=== PATIENT | male | born 1935 | race Caucasian/White ===

== ENCOUNTER 2017-07-13 10:53 | Inpatient (IN) ==
--- OUTSIDE RECORDS SUMMARY | 2017-07-13 11:39 | External Medical Summary | Referral Summary ---
:1935 Author Organization [facility] Address [address] [place] [address] Care Team Providers Name Role Phone Jose Carroll Primary Care Physician Unavailable Encounter [facility] [id number] Date(s): 07/06/15 - 07/06/15 [facility] [address] [place] [address] [place] [address] [place] Discharge Diagnosis: Urinary symptom or sign Discharge Diagnosis: Prostate hypertrophy Discharge Disposition: 01-Home or Self Care Attending Physician: Wero Meadows Admitting Physician: Wero Meadows Vital Signs Most recent to oldest [Reference Range]: 1 Temperature Oral [35.8-37.3 degC] 36.1 degC (07/06/15 10:02 AM) Peripheral Pulse Rate [60-100 bpm] 76 bpm (07/06/15 10:02 AM) Respiratory Rate [14-20 br/min] 12 br/min *LOW* (07/06/15 10:02 AM) Blood Pressure [90-140/60-90 mmHg] 160/80 mmHg *HI* (07/06/15 10:02 AM) Problem List Condition Effective Dates Status Health Status Informant Actinic keratosis Active (disorder)(Confirmed) Arrhythmia(Confirmed) Active Senile ecchymosis(Confirmed) Active Dizzy(Confirmed) Active History of Parkinson's Active disease(Confirmed) Hx of coronary artery Active disease(Confirmed) History of BPH(Confirmed) Active 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) Hyperlipidemia(Confirmed) Active Hypertension(Confirmed) Active Bad memory(Confirmed) Active Obstructive sleep apnea(Confirmed) Active Sleep disorder(Confirmed) Active Solar degeneration(Confirmed) Active Spontaneous ecchymosis Active (finding)(Confirmed) Brain TIA(Confirmed) Active Vertebral artery stenosis(Confirmed) Active Allergies, Adverse Reactions, Alerts No Known Allergies Medications atenolol 25 mg oral tablet See Instructions, TAKE ONE TABLET BY MOUTH ONCE DAILY, # 90 tabs, eRx: [id number], TAKE ONE TABLET BY MOUTH ONCE DAILY Start Date: 06/15/15 Status: OrderedAzilect Oral, Daily, 0 Refill(s) Start Date: 03/16/14 Status: OrderedFlomax 0.4 mg oral capsule 0.4 mg 1 caps, Oral, Daily, # 30 caps, 6 Refill(s), Pharmacy: [id number], 1 caps Oral Daily Start Date: 07/06/15 Status: OrderedPradaxa 150 mg oral capsule 150 mg 1 caps, Oral, BID, # 180 caps, 1 Refill(s), Pharmacy: [facility] Start Date: 12/21/14 Status: OrderedSinemet 25 mg-100 mg oral tablet 2 tabs, Oral, TID, # 180 Each, 11 Refill(s) Start Date: 11/26/13 Status: Ordered Results Urinalysis Most recent to oldest [Reference Range]: 1 UA Color Yellow (07/06/15 10:20 AM) UA Appear Clear (07/06/15 10:20 AM) UA pH [5.0-8.0] 5.0 (07/06/15 10:20 AM) UA Leuk Est [Negative] Negative (07/06/15 10:20 AM) UA Nitrite [Negative] Negative (07/06/15 10:20 AM) UA Protein [Negative] Negative (07/06/15 10:20 AM) UA Glucose [Negative] Negative (07/06/15 10:20 AM) UA Ketones [Negative] Negative (07/06/15 10:20 AM) UA Urobilinogen [<=1.0 mg/dL] 0.2 mg/dL (07/06/15 10:20 AM) UA Bili [Negative] Negative (07/06/15 10:20 AM) UA Blood [Negative] Negative (07/06/15 10:20 AM) UA Spec Grav [1.003-1.030] 1.025 (07/06/15 10:20 AM) Type Cl Catch (07/06/15 10:20 AM) Immunizations Vaccine Date Refusal Reason influenza virus vaccine, live 9/26/13 Procedures Procedure Date Related Diagnosis Body Site Colonoscopy Hernia repair(L) Inguinal Social History Social History Type Response Smoking Status Never smoker Assessment and Plan Extracted from: Title: Office Visit Note Author: Wero Meadows Date: 07/06/15 Assessment/Plan 1.Prostate hypertrophy Flomax at HS and f/u with Dr. Carroll in 1 month to see how he is doing? If any questions, concerns, problems or no improvement is noted please call or follow-up. Ordered: Office Visit Level 3 Est 34911 2.Urinary symptom or sign Ordered: Office Visit Level 3 Est 32794 Urine frequency Ordered: Office Visit Level 3 Est 17035 Orders: tamsulosin, 0.4 mg 1 caps, Oral, Daily, # 30 caps, 6 Refill(s), Pharmacy: [id number], 1 caps Oral Daily
--- OUTSIDE RECORDS SUMMARY | 2017-07-13 11:39 | External Medical Summary | Referral Summary ---
:1935 Author Organization [facility]des [facility] Address [address] [place] [address] Care Team Providers Name Role Phone Jose Carroll Primary Care Physician Unavailable Encounter [facility] [id number] Date(s): 08/18/15 - 08/18/15 [facility] [address] [place] [address]- [place] Discharge Disposition: 01-Home or Self Care Attending Physician: Jose Carroll DO Vital Signs No data available for this section Problem List Condition Effective Dates Status Health [...] MOUTH ONCE DAILY, # 90 tabs, eRx: [facility], TAKE ONE TABLET BY MOUTH ONCE DAILY Start Date: 06/15/15 Status: OrderedAzilect Oral, Daily, 0 Refill(s) Start Date: 03/16/14 Status: OrderedFlomax 0.4 mg oral capsule 0.4 mg 1 caps, Oral, Daily, # 30 caps, 6 Refill(s), Pharmacy: [facility], 1 caps Oral Daily Start Date: 08/08/15 Status: OrderedPradaxa 150 mg oral capsule 150 mg 1 caps, Oral, BID, # 180 caps, 1 Refill(s), Pharmacy: [facility] Start Date: 12/21/14 Status: OrderedSinemet 25 mg-100 mg oral tablet 2 tabs, Oral, TID, # 180 Each, 11 Refill(s) Start Date: 11/26/13 Status: Ordered Results No data available for this section Immunizations Vaccine Date Refusal Reason influenza virus vaccine, live 03/19/13 Procedures Procedure Date Related Diagnosis Body Site Colonoscopy Hernia repair(L) Inguinal Social History Social History Type Response Smoking Status Never smoker Assessment and Plan No data available for this section
--- OUTSIDE RECORDS SUMMARY | 2017-07-13 11:40 | External Medical Summary | Referral Summary ---
:1935 Author Organization [facility] , [facility] Address [address] [place] [address] Care Team Providers Name Role Phone Jose Carroll Primary Care Physician Encounter [facility] [id number] Date(s): 06/29/16 - 06/29/16 [facility] [address] [place] [address] [place] Discharge Diagnosis: Actinic keratoses Discharge Diagnosis: Seborrheic keratoses Discharge Disposition: 01-Home or Self Care Attending Physician: Arron Olivo MD Admitting Physician: Arron Olivo MD Referring Physician: Jose Carroll DO Vital Signs No data available for this section Problem List Condition Effective Dates Status Health Status Informant Acquired hallux valgus of right Active foot(Confirmed) Acquired hammer toe of right Active foot(Confirmed) Actinic keratosis Active (disorder)(Confirmed) Arrhythmia(Confirmed) Active Senile ecchymosis(Confirmed) Active Dizzy(Confirmed) Active History of Parkinson's Active disease(Confirmed) Hx of coronary artery Active disease(Confirmed) History of BPH(Confirmed) Active 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) Hyperlipidemia(Confirmed) Active Hypertension(Confirmed) Active Bad memory(Confirmed) Active Obstructive sleep apnea(Confirmed) Active Sleep disorder(Confirmed) Active 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 Spontaneous ecchymosis Active (finding)(Confirmed) Brain TIA(Confirmed) Active Vertebral artery stenosis(Confirmed) Active Allergies, Adverse Reactions, Alerts No Known Allergies Medications atenolol 25 mg oral tablet See Instructions, TAKE ONE TABLET BY MOUTH ONCE DAILY (PATIENT NEEDS APPOINTMENT PLEASE CALL TO SCHEDULE), # 90 tabs, 2 Refill(s), eRx: [facility] Start Date: 06/14/16 Status: OrderedAzilect Oral, Daily, 0 Refill(s) Start Date: 03/16/14 Status: Orderedcarbidopa-levodopa 4.63 mg-20 mg/mL enteral suspension 0 Refill(s) Start Date: 06/28/16 Status: Orderedclopidogrel Oral, 0 Refill(s) Start Date: 06/28/16 Status: OrderedEliquis 5 mg oral tablet See Instructions, TAKE ONE TABLET BY MOUTH TWICE DAILY, # 60 tabs, 0 Refill(s), [place], Pharmacy: [facility], Patient is due for physical, TAKE ONE TABLET BY MOUTH TWICE DAILY Start Date: 06/01/16 Status: Ordered Results No data available for this section Immunizations Given and Recorded Vaccine Date Status Refusal Reason influenza virus vaccine, live 03/13/16 Recorded influenza virus vaccine, live 03/19/13 Given pneumococcal 13-valent conjugate vaccine 06/07/16 Given Procedures Procedure Date Related Diagnosis Body Site Destruction (eg, laser surgery, electrosurgery, 06/29/16 cryosurgery, chemosurgery, surgical curettement), premalignant lesions (eg, actinic keratoses); first lesion Destruction (eg, laser surgery, electrosurgery, 06/29/16 cryosurgery, chemosurgery, surgical curettement), premalignant lesions (eg, actinic keratoses); second through 14 lesions, each (List separately in addition to code for first lesion) Colonoscopy Hernia repair(L) Inguinal Social History Social History Type Response Smoking Status Never smoker Assessment and Plan Extracted from: Title: Office Visit Note Author: Arron Olivo MD Date: 06/29/16 Assessment/Plan 1.Actinic keratoses -3 lesions; see physical examination above for locations -Cryotherapy x2 cycle(s) (10 second freeze-thaw cycle) -Encouraged monthly skin self-examination and warning signs of non-melanoma skin cancer discussed -Discussed proper sun protective behavior including: avoiding the hours of peak sun exposure (10am-2pm), wearing sunscreen SPF 30 or higher and reapplying every 2 hours for prolonged sun exposure, an d wearing sun protective clothing including a wide brimmed hat -Return to clinic in6 months -Encouraged pt to schedule an earlier f/u appointment if concerning lesions develop or if treated lesions do not resolve in 6 weeks Ordered: Destruction premalignant lesion 1st 08072 Destruction premalignant lesion 2-14, Each 70806 Office Visit Level 3 Est 88309 2.Seborrheic keratoses -Reassurance regarding the benign nature of these lesions -Discussed ABCDEs of melanoma and recommended monthly skin self-examination -Recommended pt schedule a clinic appointment for anyconcerning lesions Ordered: Office Visit Level 3 Est 92243
--- OUTSIDE RECORDS SUMMARY | 2017-07-13 11:40 | External Medical Summary | Referral Summary ---
:1935 Author Organization [facility] , [facility] Address [address] [place] [address] Care Team Providers Name Role Phone Jose Carroll Primary Care Physician Encounter [facility] [id number] Date(s): 01/31/16 - 01/31/16 [facility] , [facility] [address] [place] [address] [place] Discharge Diagnosis: Actinic keratoses [...] PLEASE CALL TO SCHEDULE), # 90 tabs, [facility]Rx: [facility], TAKE ONE TABLET BY MOUTH ONCE DAILY (PATIENT NEEDS APPOINTMENT PLEASE CALL TO SCHEDULE) Start Date: 12/13/15 Status: OrderedAzilect Oral, Daily, 0 Refill(s) Start Date: 03/16/14 Status: OrderedEliquis 5 mg oral tablet See Instructions, TAKE ONE TABLET BY MOUTH TWICE DAILY, # 60 tabs, 1 Refill(s), eRx: [facility], TAKE ONE TABLET BY MOUTH TWICE DAILY Start Date: 12/09/15 Status: OrderedFlomax 0.4 mg oral capsule 0.4 mg 1 caps, Oral, Daily, # 30 caps, 6 Refill(s), Pharmacy: [facility], 1 caps Oral Daily Start Date: 08/08/15 Status: OrderedPlavix 75 mg oral tablet 75 mg 1 tabs, Oral, Daily, # 30 tabs, 0 Refill(s) Start Date: 08/23/15 Status: OrderedSinemet 25 mg-100 mg oral tablet 2 tabs, Oral, TID, # 180 Each, 11 Refill(s) Start Date: 11/26/13 Status: Ordered Results No data available for this section Immunizations Vaccine Date Refusal Reason influenza virus vaccine, live 03/19/13 Procedures Procedure Date Related Diagnosis Body Site Destruction (eg, laser surgery, electrosurgery, 01/31/16 cryosurgery, chemosurgery, surgical curettement), premalignant lesions (eg, actinic keratoses); first lesion Destruction (eg, laser surgery, electrosurgery, 01/31/16 cryosurgery, chemosurgery, surgical curettement), premalignant lesions (eg, actinic keratoses); second through 14 lesions, each (List separately in addition to code for first lesion) Colonoscopy Hernia repair(L) Inguinal Social History Social History Type Response Smoking Status Never smoker Assessment and Plan Extracted from: Title: Office Visit Note Author: Arron Olivo MD Date: 01/31/16 Assessment/Plan 1.Actinic keratoses -8 lesions; see physical examination above for locations -Cryotherapy x2 cycle(s) (10 second freeze-thaw cycle) -Encouraged monthly skin self-examination and warning signs of non-melanoma skin cancer discussed -Discussed proper sun protective behavior including: avoiding the hours of peak sun exposure (10am-2pm), wearing sunscreen SPF 30 or higher and reapplying every 2 hours for prolonged sun exposure, and wearing sun protective clothing including a wide brimmed hat -Return to clinic [id number] -Encouraged pt to schedule an earlier f/u appointment if concerning lesions develop or if treated lesions do not resolve in 6 weeks Ordered: Destruction premalignant lesion 1st 45340 Destruction premalignant lesion 2-14, Each 61609 Office Visit Level 3 Est 95209 2.Seborrheic keratoses -Reassurance regarding the benign nature of these lesions -Discussed ABCDEs of melanoma and recommended monthly skin self-examination -Recommended pt schedule a clinic appointment for anyconcerning lesions Ordered: Office Visit Level 3 Est 53116
--- OUTSIDE RECORDS SUMMARY | 2017-07-13 11:40 | External Medical Summary | Referral Summary ---
:1935 Author Organization [facility] , [facility] Address [address] [place] [address] Care Team Providers Name Role Phone Jose Carroll Primary Care Physician Unavailable Encounter [facility] [id number] Date(s): 01/31/15 - 01/31/15 [facility] , [facility] [address] [place] [address]- [place] Discharge Diagnosis: Actinic keratosis Discharge Diagnosis: Senile purpura Discharge Disposition: 01-Home or Self Care Attending [...] MOUTH ONCE DAILY, # 90 tabs, [facility], TAKE ONE TABLET BY MOUTH ONCE DAILY Start Date: 06/15/15 Status: OrderedAzilect Oral, Daily, 0 Refill(s) Start Date: 03/16/14 Status: OrderedFlomax 0.4 mg oral capsule 0.4 mg 1 caps, Oral, Daily, # 30 caps, 6 Refill(s), Pharmacy: [facility], 1 caps Oral Daily Start Date: 08/08/15 Status: OrderedPradaxa 150 mg oral capsule 150 mg 1 caps, Oral, BID, # 180 caps, 1 Refill(s), Pharmacy: [facility] Start Date: 12/21/14 Status: OrderedSinemet 25 mg-100 mg oral tablet 2 tabs, Oral, TID, # 180 Each, 11 Refill(s) Start Date: 11/26/13 Status: Ordered Results No data available for this section Immunizations Vaccine Date Refusal Reason influenza virus vaccine, live 03/19/13 Procedures Procedure Date Related Diagnosis Body Site Destruction (eg, laser surgery, electrosurgery, 01/31/15 cryosurgery, chemosurgery, surgical curettement), premalignant lesions (eg, actinic keratoses); first lesion Destruction (eg, laser surgery, electrosurgery, 01/31/15 cryosurgery, chemosurgery, surgical curettement), premalignant lesions (eg, actinic keratoses); second through 14 lesions, each (List separately in addition to code for first lesion).. Colonoscopy Hernia repair(L) Inguinal Social History Social History Type Response Smoking Status Never smoker Assessment and Plan Extracted from: Title: Ambulatory Patient Education Author: Arron Olivo MD Date: Family Medicine Actinic Keratosis Actinic keratosis is a precancerous growth on the skin. This means it could develop into skin cancer if it is not treated. About 1% of actinic keratoses turn into skin cancer within a year. It is import ant to have all such growths removed to prevent them from developing into skin cancer. CAUSES Actinic keratosis is caused by getting too much ultraviolet (UV) radiation from the sun or other UV light sources. RISK FACTORS Factors that increase your chances of getting actinic keratosis include: Having light-colored skin and blue eyes. Having blonde or red hair. Spending a lot of time in the sun. Age. The risk of actinic keratosis increases with age. SYMPTOMS Actinic keratosis growths look like scaly, rough spots of skin. They can be as small as a pinhead or as big as a quarter. They may itch, hurt, or feel sensitive. Sometimes there is a little tag of pink or rae skin growing off them. In some cases, actinic keratoses are easier felt than seen. They do not go away with the use of moisturizing lotions or creams. Actinic keratoses appear most often on area s of skin that get a lot of sun exposure. These areas include the: Scalp. Face. Ears. Lips. Upper back. Backs of the hands. Forearms. DIAGNOSIS Your caregiver can usually tell what is wrong by performing a physical exam. A tissue sample (biopsy) may also be taken and examined under a microscope. TREATMENT Actinic keratosis can be treated several ways. Most treatments can be done in your caregiver's office. Treatment options may include: Curettage. A tool is used to gently scrape off the growth. Cryosurgery. Liquid nitrogen is applied to the growth to freeze it. The growth eventually falls off the skin. Medicated creams, such as 5-fluorouracil or imiquimod. The medicine destroys the cells in the growth. Chemical peels. Chemicals are applied to the growth and the outer layers of skin are peeled off. Photodynamic therapy. A drug that makes your skin more sensitive to light is applied to the skin. A strong, blue light is aimed at the skin and destroys the growth. PREVENTION To prevent future sun damage: Try to avoid the sun between 10:00 a.m. and 4:00 p.m. when it is the strongest. Use a sunscreen or sunblock with SPF 30 or greater. Apply sunscreen at least 30 minutes before exposure to the sun. Always wear protective hats, clothing, and sunglasses with UV protection. Avoid medicines, herbs, and foods that increase your sensitivity to sunlight. Avoid tanning beds. HOME CARE INSTRUCTIONS If your skin was covered with a bandage, change and remove the bandage as directed by your caregiver. Keep the treated area dry as directed by your caregiver. Apply any creams as prescribed by your caregiver. Follow the directions carefully. Check your skin regularly for any changes. Visit a skin doctor (manager application) every year for a skin exam. SEEK MEDICAL CARE IF: Your skin does not heal and becomes irritated, red, or bleeds. You notice any changes or new growths on your skin. Document Released: 09/06/2009 Document Revised: 09/01/2012 Document Reviewed: 07/21/2012 ExitCare Patient Information 2014 [employer]. This information is not intended to replace advice given to you by your health care provider. Make sure you discuss any questions you have with your health care provider. No follow up information was provided. Extracted from: Title: Office Visit Note Author: Arron Olivo MD Date: 01/31/15 Assessment/Plan 1.Actinic keratosis -6 lesions; see physical examination above for locations [...] a wide brimmed hat -Return to clinic in12 months -Encouraged pt to schedule an earlier f/u appointment if concerning lesions develop or if treated lesions do not resolve in 6 weeks Ordered: Destruction premalignant lesion 1st 12862 Destruction premalignant lesion 2-14, Each 85666 Office Visit Level 3 Est 79951 2.Senile purpura -Reassured the pt regarding the benign nature of these lesions -Discussed the multifactorial causes including: aging, photodamage and Pradaxa -No treatment options currently available Ordered: Office Visit Level 3 Est 13868
--- OUTSIDE RECORDS SUMMARY | 2017-07-13 11:40 | External Medical Summary | Referral Summary ---
:1935 Author Organization [facility] Address [address] [place] [address] Care Team Providers Name Role Phone Jose Carroll Primary Care Physician Unavailable Encounter [facility] [id number] Date(s): 08/08/15 - 08/08/15 [facility] [address] [place] [address]- [place] Discharge Diagnosis: Shortness of breath Discharge Diagnosis: Nocturia Discharge Disposition: 01-Home or Self Care Attending Physician: Jose Carroll DO Admitting Physician: Jose Carroll DO Vital Signs Most recent to oldest [Reference Range]: 1 Temperature Oral [35.8-37.3 degC] 36.6 degC (08/08/15 8:16 AM) Peripheral Pulse Rate [60-100 bpm] 70 bpm (08/08/15 8:16 AM) Blood Pressure [90-140/60-90 mmHg] 140/78 mmHg (08/08/15 8:16 AM) SpO2 94 % (08/08/15 8:16 AM) Problem List Condition Effective Dates Status [...] MOUTH ONCE DAILY, # 90 tabs, eRx: [facility], TAKE ONE TABLET BY MOUTH ONCE DAILY Start Date: 06/15/15 Status: OrderedAzilect Oral, Daily, 0 Refill(s) Start Date: 03/16/14 Status: OrderedFlomax 0.4 mg oral capsule 0.4 mg 1 caps, Oral, Daily, # 30 caps, 6 Refill(s), Pharmacy: [facility], 1 caps Oral Daily Start Date: 08/08/15 Status: OrderedPradaxa 150 mg oral capsule 150 mg 1 caps, Oral, BID, # 180 caps, 1 Refill(s), Pharmacy: [facility] 1200 Start Date: 12/21/14 Status: [...] Extracted from: Title: Office Visit Note Author: Jose Carroll DO Date: 08/08/15 Assessment/Plan 1.Nocturia Reviewed and no blood work has been done kavon'll obtain lab workto rule out otherpathological entity Ordered: CBC w/ Differential Comprehensive Metabolic Panel Prostate Specific Antigen XR Chest 2 Views 2.Shortness of breath Discussed with patientvery suggestive of heart palpitations or fluttering Due to PMHstress test Ordered: CBC w/ Differential Comprehensive Metabolic Panel Prostate Specific Antigen XR Chest 2 Views Orders: tamsulosin, 0.4 mg 1 caps, Oral, Daily, # 30 caps, 6 Refill(s), Pharmacy: [facility], 1 caps Oral Daily
--- OUTSIDE RECORDS SUMMARY | 2017-07-13 11:40 | External Medical Summary | Referral Summary ---
:1935 Author Organization [facility] Address [address] [place] [address] Care Team Providers Name Role Phone Jose Carroll Primary Care Physician Encounter VC Date(s): 06/28/16 - 06/28/16 [facility] [address] [address] [place] [address]- [place] Discharge Diagnosis: Heloma molle Discharge Diagnosis: Acquired hallux valgus of right foot Discharge Diagnosis: Acquired hammer toe of right foot Discharge Disposition: 01-Home or Self Care Attending Physician: Nestor Breaux DPM Admitting Physician: Nestor Breaux DPM Vital Signs No data available for this [...] SCHEDULE), # 90 tabs, 2 Refill(s), eRx: [id number] Start Date: 06/14/16 Status: OrderedAzilect Oral, Daily, 0 Refill(s) Start Date: 03/16/14 Status: Orderedcarbidopa-levodopa 4.63 mg-20 mg/mL enteral suspension 0 Refill(s) Start Date: 06/28/16 Status: Orderedclopidogrel Oral, 0 Refill(s) Start Date: 06/28/16 Status: OrderedEliquis 5 mg oral tablet See Instructions, TAKE ONE TABLET BY MOUTH TWICE DAILY, # 60 tabs, 0 Refill(s), [place], Pharmacy: [id number], Patient is due for physical, [...] Extracted from: Title: Ambulatory Patient Education Author: Nestor Breaux DPRonald Date: 06/28/16 Musculoskeletal Bunion (Hallux Valgus) A bony bump (protrusion) on the inside of the foot, at the base of the first toe, is called a bunion (hallux valgus). A bunion causes the first toe to angle toward the other toes. SYMPTOMS A bony bump on the inside of the foot, causing an outward turning of the first toe. It may also overlap the second toe. Thickening of the skin (callus) over the bony bump. Fluid buildup under the callus. Fluid may become red, tender, and swollen (inflamed) with constant irritation or pressure. Foot pain and stiffness. CAUSES Many causes exist, including: Inherited from your family (genetics). Injury (trauma) forcing the first toe into a position in which it overlaps other toes. Bunions are also associated with wearing shoes that have a narrow toe box (pointy shoes). RISK INCREASES WITH: Family history of foot abnormalities, especially bunions. Arthritis. Narrow shoes, especially high heels. PREVENTION Wear shoes with a wide toe box. Avoid shoes with high heels. Wear a small pad between the big toe and second toe. Maintain proper conditioning: Foot and ankle flexibility. Muscle strength and endurance. PROGNOSIS With proper treatment, bunions can typically be cured. Occasionally, surgery is required. RELATED COMPLICATIONS Infection of the bunion. Arthritis of the first toe. Risks of surgery, including infection, bleeding, injury to nerves (numb toe), recurrent bunion, overcorrection (toe points inward), arthritis of the big toe, big toe pointing upward, and bone not healing. TREATMENT Treatment first consists of stopping the activities that aggravate the pain, taking pain medicines, and icing to reduce inflammation and pain. Wear shoes with a wide toe box. Shoes can be modified by a shoe repair person to relieve pressure on the bunion, especially if you cannot find shoes with a wide enough toe box. You may also place a pad with the center cut out in your shoe, to reduce pressure on the bunion. Sometimes, an arch support (orthotic) may reduce pressure on the bunion and alleviate the symptoms. Stretching and strengthening exercises for the muscles of the foot may be useful. You may choose to wear a brace or pad at night to hold the big toe away from the second toe. If non-surgical treatments are not successful, surgery may be needed. Surgery involves removing the overgrown tissue and correcting the position of the first toe, by realigning the bones. Bunion surgery is typically performed on an outpatient basis, meaning you can go home the same day as surgery. The surgery may inv olve cutting the mid portion of the bone of the first toe, or just cutting and repairing (reconstructing) the ligaments and soft tissues around the first toe. MEDICATION If pain medicine is needed, nonsteroidal anti-inflammatory medicines, such as aspirin and ibuprofen, or other minor pain relievers, such as acetaminophen, are often recommended. Do not take pain medicine for 7 days before surgery. Prescription pain relievers are usually only prescribed after surgery. Use only as directed and only as much as you need. Ointments applied to the skin may be helpful. HEAT AND COLD Cold treatment (icing) relieves pain and reduces inflammation. Cold treatment should be applied for 10 to 15 minutes every 2 to 3 hours for inflammation and pain and immediately after any activit y that aggravates your symptoms. Use ice packs or an ice massage. Heat treatment may be used prior to performing the stretching and strengthening activities prescribed by your caregiver, physical therapist, or lion trainer. Use a heat pack or a warm soak. SEEK MEDICAL CARE IF: Symptoms get worse or do not improve in 2 weeks, despite treatment. After surgery, you develop fever, increasing pain, redness, swelling, drainage of fluids, bleeding, or increasing warmth around the surgical area. New, unexplained symptoms develop. (Drugs used in treatment may produce side effects.) This information is not intended to replace advice given to you by your health care provider. Make sure you discuss any questions you have with your health care provider. Document Released: 06/10/2006 Document Revised: 09/01/2012 Document Reviewed: 09/22/2009 [employer] Interactive Patient Education 2016 [employer] Hammer Toes Hammer toes is a condition in which one or more of your toes is permanently flexed. CAUSES This happens when a muscle imbalance or abnormal bone length makes your small toes buckle. This causes the toe joint to contract and the strong cord-like bands that attach muscles to the bones (tendons) in your toes to shorten. SIGNS AND SYMPTOMS Common symptoms of flexible hammer toes include: A buildup of skin cells (corns). Corns occur where baltazar bumps come in frequent contact with hard surfaces. For example, where your shoes press and rub. Irritation. Inflammation. Pain. Limited motion in your toes. DIAGNOSIS Hammer toes are diagnosed through a physical exam of your toes. During the exam , your health care provider may try to reproduce your symptoms by manipulating your foot. Often, X-ray exams are done to de termine the degree of deformity and to make sure that the cause is not a fracture. TREATMENT Hammer toes can be treated with corrective surgery. There are several types of surgical procedures that can treat hammer toes. The most common procedures include: ArthroplastyA portion of the joint is surgically removed and your toe is straightened. The gap fills in with fibrous tissue. This procedure helps treat pain and deformity and helps restore function. FusionCartilage between the two bones of the affected joint is taken out and the bones fuse together into one longer bone. This helps keep your toe stable and reduces pain but leaves your toe stiff, yet straight. ImplantationA portion of your bone is removed and replaced with an implant to restore motion. Flexor tendon transfersThis procedure repositions the tendons that curl the toes down (flexor tendons). This may be done to release the deforming force that causes your toe to buckle. Several of these procedures require fixing your toe with a pin that is visible at the tip of your toe. The pin keeps the toe straight during healing. Your health care provider will remove the pin usually within 48 weeks after the procedure. This information is not intended to replace advice given to you by your health care provider. Make sure you discuss any questions you have with your health care provider. Document Released: 06/07/2001 Document Revised: 06/15/2014 Document Reviewed: 02/15/2014 [employer] Interactive Patient Education 2016 [employer] No follow up information was provided. Extracted from: Title: Office Visit Note Author: Nestor Breaux DPRonald Date: 06/28/16 Assessment/Plan 1.Heloma molle 2.Acquired hallux valgus of right foot 3.Acquired hammer toe of right foot Discussed the etiology of hyperkeratotic lesion ofright great toetoday. Patient was given Silipos padding and different type of toe spacer that he maywear. Advised patient to wear wider shoe gear. Consideration is given to surgical intervention in the form of reconstruction versus amputation of right second digit. Patient states that he does not wish to undergo surgical intervention at this time. Return to clinicas needed basis.
--- OUTSIDE RECORDS SUMMARY | 2017-07-13 11:40 | External Medical Summary | Continuity of Care Document ---
:1935 Author Organization [facility] Allergies Active Description Code Type Severity Reaction Onset Reported/ Identified Relationship Clinical to Patient Status Yes NKDA N/A N/A Yes No Known NKMA N/A N/A 11/26/2013 Medication Allergies Yes No Known NKMA N/A N/A 11/26/2013 Medication Allergies Yes No Known NKMA N/A N/A 01/31/2015 Allergies Yes No Known NKMA N/A N/A 01/31/2015 Allergies Yes No Known No Drug Unknown N/A 07/02/2016 Allergies Known Aller Aller gy gies Medications Medication Packaging Start Stop Route Dosage Sig Date Date 1 caps 11/27/19 Oral 150 mg 1 dabigatran(Arnaldo 4 14 caps, Oral, xa 150 mg oral BID, 60 caps capsule) tabs 11/27/19 Oral mg clopidogrel(Plav 4 14 tabs, Oral, ix 75 mg oral Daily tablet) tabs 11/27/19 Oral mg rasagiline(Azile 4 14 tabs, Oral, ct 1 mg oral Daily tablet) tabs 11/27/19 Oral mg atenolol(atenolo 4 14 tabs, Oral, l 25 mg oral Daily tablet) tabs 11/27/19 Oral carbidopa-levodo 4 14 tabs, Oral, pa(Sinemet 25 TID mg-100 mg oral tablet) 2 tabs 06/07/20 Oral 2 carbidopa-levodo 4 16 tabs, Oral, pa(Sinemet 25 TID, 180 Each mg-100 mg oral tablet) Oral rasagiline(Azile 4 Oral, Daily ct) 08/09/19 Oral atenolol(atenolo 4 15 Oral, Daily l) 12/22/19 Oral dabigatran(Arnaldo 4 15 Oral, BID xa) 1 tabs 07/06/19 Oral 81 mg 1 aspirin(aspirin 4 16 tabs, Oral, 81 mg oral Daily tablet) ORAL [id number] 5 daily 12/22/19 atenolol(atenolo 5 15 See l 25 mg oral Instructions, tablet) TAKE ONE TABLET BY MOUTH EVERY DAY, 90 tabs ORAL [id number] 5 t.i.d. ORAL [id number] 5 t.i.d. 06/15/20 atenolol(atenolo 5 15 See l 25 mg oral Instructions, tablet) TAKE ONE TABLET BY MOUTH ONCE DAILY, 90 tabs 08/29/19 atenolol(atenolo 5 16 See l 25 mg oral Instructions, tablet) TAKE ONE TABLET BY MOUTH ONCE DAILY, 90 tabs 1 caps 08/08/19 Oral 0.4 mg tamsulosin(Floma 6 16 0.4 mg=1 caps, x 0.4 mg oral Oral, Daily, capsule) 30 caps, 6 Refill(s) 1 caps 06/07/20 Oral 0.4 mg tamsulosin(Floma 6 16 0.4 mg=1 caps, x 0.4 mg oral Oral, Daily, capsule) 30 caps, 6 Refill(s) 1 tabs 06/07/20 Oral 75 mg 75 clopidogrel(Plav 6 16 mg=1 tabs, ix 75 mg oral Oral, Daily, tablet) 30 tabs, 0 Refill(s) 12/13/19 atenolol(atenolo 6 16 See l 25 mg oral Instructions, tablet) TAKE ONE TABLET BY MOUTH ONCE DAILY (PATIENT NEEDS APPOINTMENT PLEASE CALL TO SCHEDULE), 90 tabs 03/12/20 atenolol(atenolo 6 16 See l 25 mg oral Instructions, tablet) TAKE ONE TABLET BY MOUTH ONCE DAILY (PATIENT NEEDS APPOINTMENT PLEASE CALL TO SCHEDULE), 90 tabs 04/30/20 apixaban(Eliquis 6 16 See 5 mg oral Instructions, tablet) TAKE ONE TABLET BY MOUTH TWICE DAILY, 60 tabs, 1 Refill(s) 06/14/20 atenolol(atenolo 6 16 See l 25 mg oral Instructions, tablet) TAKE ONE TABLET BY MOUTH ONCE DAILY (PATIENT NEEDS APPOINTMENT PLEASE CALL TO SCHEDULE), 90 tabs 06/01/20 apixaban(Eliquis 6 16 See 5 mg oral Instructions, tablet) TAKE ONE TABLET BY MOUTH TWICE DAILY, 60 tabs 07/17/19 apixaban(Eliquis 6 17 See 5 mg oral Instructions, tablet) TAKE ONE TABLET BY MOUTH TWICE DAILY, 60 tabs, 0 Refill(s) 0.5 mL 06/07/20 IntraMuscular pneumococcal 6 16 0.5 mL, 13-valent IntraMuscular, conjugate Once vaccine(pneumoco ccal 13-valent conjugate vaccine) 08/08/19 atenolol(atenolo 6 17 See l 25 mg oral Instructions, tablet) TAKE ONE TABLET BY MOUTH ONCE DAILY (PATIENT NEEDS APPOINTMENT PLEASE CALL TO SCHEDULE), 90 tabs, 2 Refill(s) 0 carbidopa-levodo 7 Refill(s) pa(carbidopa-lev odopa 4.63 mg-20 mg/mL enteral suspension) 10/10/19 Oral clopidogrel(clop 7 17 Voided idogrel) 08/08/19 apixaban(Eliquis 7 17 See 5 mg oral Instructions, tablet) TAKE ONE TABLET BY MOUTH TWICE DAILY (DUE FOR PHYSICAL), 60 tabs, 3 Refill(s) 1 caps 09/04/19 Oral 0.4 mg tamsulosin(Floma 7 17 0.4 mg=1 caps, x 0.4 mg oral Oral, Daily, capsule) Prescribed by Jose, 90 caps, 0 Refill(s) 1 tabs Oral 25 mg 25 atenolol(atenolo 7 mg=1 tabs, l 25 mg oral Oral, Daily, tablet) 90 tabs, 2 Refill(s) 1 tabs Oral 5 mg 5 apixaban(Eliquis 7 mg=1 tabs, 5 mg oral Oral, BID, 180 tablet) tabs, 1 Refill(s) tamsulosin(tamsu 7 See losin 0.4 mg Instructions, oral capsule) TAKE ONE CAPSULE BY MOUTH ONCE DAILY, 30 caps, 11 Refill(s) 1 caps 10/17/19 Oral 300 mg clindamycin(clin 7 17 300 mg=1 caps, damycin 300 mg Oral, BID, 20 oral capsule) caps, 0 Refill(s) 2 caps Oral 0.8 mg tamsulosin(Floma 7 0.8 mg=2 caps, x 0.4 mg oral Oral, Daily, capsule) 180 caps, 3 Refill(s) 03/19/20 atenolol(atenolo 7 17 See l 25 mg oral Instructions, tablet) TAKE ONE TABLET BY MOUTH ONCE DAILY (PATIENT NEEDS APPOINTMENT PLEASE CALL TO SCHEDULE), 15 tabs, 0 Refill(s) Problems Date Dx Attending Type Code Diagnosis Diagnosed By Coded 09/07/2015 Luz,, Reason G20 Parkinson'&#39 Ty ;s disease 01/31/2016 Arron Olivo Final L57.0 Actinic keratosis R 01/31/2016 Arron Olivo Final L82.1 Other seborrheic R keratosis 06/08/2016 Esequiel, Final G47.33 Obstructive sleep Tigist A apnea (adult) (pediatric) 06/08/2016 Esequiel, Final I10 Essential Tigist A (primary) hypertension 06/08/2016 Esequiel, Final Z86.69 Personal history Tigist A of other diseases of the nervous system and sense organs 06/28/2016 Nestor Breaux Final L84 Corns and callosities 06/28/2016 Nestor Breaux Final M20.11 Hallux valgus (acquired), right foot 06/28/2016 Nestor Breaux Final M20.41 Other hammer toe(s) (acquired), right foot 06/29/2016 Arron Olivo Final L57.0 Actinic keratosis R 06/29/2016 Arron Olivo Final L82.1 Other seborrheic R keratosis 10/03/2016 Carly, Final N40.1 Benign prostatic Jose E hyperplasia with lower urinary tract symptoms 10/03/2016 Carly, Final R35.0 Frequency of Jose E micturition 10/03/2016 Carly, Final M79.674 Pain in right Jose E toe(s) 10/04/2016 Nestor Breaux Final B35.1 Tinea unguium 10/04/2016 Nestor Breaux Final L03.031 Cellulitis of right toe 10/04/2016 Nestor Breaux Final L60.0 Ingrowing nail 10/11/2016 Nestor Breaux Final L03.031 Cellulitis of right toe 10/16/2016 Solitario Denis Final N32.81 Overactive bladder Mason 10/16/2016 Solitario Denis Final N40.1 Benign prostatic Mason hyperplasia with lower urinary tract symptoms 01/18/2017 Brady Arceo Final G47.33 Obstructive sleep apnea (adult) (pediatric) 06/27/2017 Nestor Breaux Final L84 Corns and callosities 06/27/2017 Nestor Breaux Final M20.11 Hallux valgus (acquired), right foot Procedures Code [place] [address] Destruction 01/31/2016 (eg, laser surgery, electrosurgery, cryosurgery, chemosurgery, surgical curettement), premalignant lesions (eg, actinic keratoses); first lesion 13280 Destruction 01/31/2016 (eg, laser surgery, electrosurgery, cryosurgery, chemosurgery, surgical curettement), premalignant lesions (eg, actinic keratoses); second through 14 lesions, each (List separately in safia 31666 Office or 01/31/2016 other outpatient visit for the evaluation and management of an established patient, which requires at least 2 of these 3 cook components: An expanded problem focused history; An expanded prob 31570 Immunization 06/07/2016 administration (includes percutaneous, intradermal, subcutaneous, or intramuscular injections); 1 vaccine (single or combination vaccine/toxoid).. 31510 Pneumococcal 06/07/2016 conjugate vaccine, 13 valent (PCV13), for intramuscular use 90052 Office or 06/07/2016 other outpatient visit for the evaluation and management of an established patient, which requires at least 2 of these 3 cook components: A detailed history; A detailed examination; Medical d 07822 Office or 06/28/2016 other outpatient visit for the evaluation and management of a new patient, which requires these 3 cook components: A detailed history; A detailed examination; [place] 97704 Destruction 06/29/2016 (eg, laser surgery, electrosurgery, cryosurgery, chemosurgery, surgical curettement), premalignant lesions (eg, actinic keratoses); first lesion 36928 Destruction 06/29/2016 (eg, laser surgery, electrosurgery, cryosurgery, chemosurgery, surgical curettement), premalignant lesions (eg, actinic keratoses); second through 14 lesions, each (List separately in safia 76043 Office or 06/29/2016 other outpatient visit for the evaluation and management of an established patient, which requires at least 2 of these 3 cook components: An expanded problem focused history; An expanded prob 91975 Radiologic 10/03/2016 examination; toe(s), minimum of 2 views 46307 Office or 10/03/2016 other outpatient visit for the evaluation and management of an established patient, which requires at least 2 of these 3 cook components: A detailed history; A detailed examination; Medical d 52536 Avulsion of 10/04/2016 nail plate, partial or complete, simple; single 18694 Office or 10/04/2016 other outpatient visit for the evaluation and management of an established patient, which requires at least 2 of these 3 cook components: An expanded problem focused history; An expanded prob 08287 Office or 10/11/2016 other outpatient visit for the evaluation and management of an established patient, which requires at least 2 of these 3 cook components: An expanded problem focused history; An expanded prob 36935 Measurement of 10/16/2016 post-voiding residual urine and/or bladder capacity by ultrasound, non-imaging 73158 Office or 10/16/2016 other outpatient visit for the evaluation and management of a new patient, which requires these 3 cook components: A comprehensive history; A comprehensive examination; Medical decision makin 38188 Office or 01/18/2017 other outpatient visit for the evaluation and management of a new patient, which requires these 3 cook components: A detailed history; A detailed examination; Medical [place] c 61039 Office or 06/27/2017 other outpatient visit for the evaluation and management of an established patient, which requires at least 2 of these 3 cook components: An expanded problem focused history; An expanded prob Results Test Result Range TROPONIN I BEDSIDE - 07/01/16 23:50 METHOD Bedside TROPONIN I < 0.04 ng/mL < 0.11 CHEM/HEM PROFILE-BEDSIDE - 07/01/16 23:52 POTASSIUM 4.4 mmol/L 3.5-5.3 METHOD Bedside ANION GAP 14 mmol/L 10-20 METHOD Bedside GLUCOSE 100 mg/dL 70-99 BLOOD UREA NITROGEN 20 mg/dL 7-20 CREATININE 0.9 mg/dL 0.7-1.3 HEMOGLOBIN 13.9 gm/dL 14.0-18.0 HEMATOCRIT 41.0 % 40.0-54.0 SODIUM 141 mmol/L 135-148 CHLORIDE 102 mmol/L 98-110 CARBON DIOXIDE 30 mmol/L 21-32 CALCIUM IONIZED 5.0 mg/dL 4.5-5.3 URINALYSIS, ROUTINE - 07/02/16 00:45 UA LEUKOCYTE ESTERASE DIPSTICK TRACE NEGATIVE UA NITRITE DIPSTICK NEGATIVE NEGATIVE UA PROTEIN DIPSTICK TRACE NEGATIVE UA GLUCOSE DIPSTICK NEGATIVE NEGATIVE UA KETONE DIPSTICK NEGATIVE NEGATIVE UA UROBILINOGEN DIPSTICK NORMAL NORMAL UA BILIRUBIN DIPSTICK NEGATIVE NEGATIVE UA BLOOD DIPSTICK TRACE NEGATIVE UA SPECIFIC GRAVITY 1.020 1.015-1.025 UR PH 6.0 5.0-7.0 UA MICROSCOPIC - 07/02/16 00:45 UA MUCUS 1+ NEG TO 1+ UA RBC 0-3 rbc/hpf 0 - 3 UA VOLUME FOR EXAM 12.0 mL (12mL STD) UA WBC 0-1 wbc/hpf 0 - 5 METABOLIC PANEL, COMPREHN - 04/01/17 06:11 POTASSIUM 3.9 mmol/L 3.5-5.3 EST GFR (MDRD) > 60 mL/min > 59 ANION GAP 7 mmol/L 5-15 GLUCOSE 105 mg/dL 70-99 CALCIUM 8.9 mg/dL 8.5-10.1 BLOOD UREA NITROGEN 13 mg/dL 7-20 CREATININE 0.8 mg/dL 0.7-1.3 SODIUM 141 mmol/L 135-148 CHLORIDE 107 mmol/L 98-110 AST/SGOT 16 Units/L 10-37 ALT/SGPT 9 Units/L < 66 CARBON DIOXIDE 27 mmol/L 21-32 TOTAL PROTEIN 6.4 gm/dL 6.4-8.2 ALBUMIN 3.6 gm/dL 3.4-5.0 BILI TOTAL 0.6 mg/dL 0.0-1.0 ALKALINE PHOSPHATASE TOTAL 53 IU/L 45-117 TROPONIN I - 04/01/17 06:11 TROPONIN I < 0.02 ng/mL < 0.07 CBC - 04/01/17 06:16 MEAN CELL HGB 32.2 pg 27.0-33.0 MEAN CELL HGB CONCENTRATION 32.7 g/dL 32.0-37.0 MEAN CELL VOLUME 98.5 fl 80.0-100.0 RED BLOOD CELL 4.07 m/cumm 4.00-6.00 RED CELL DISTRIBUTION WIDTH 14.8 % 11.0-15.6 WHITE BLOOD CELL 5.7 k/cumm 5.0-10.0 HEMOGLOBIN 13.1 gm/dL 14.0-18.0 HEMATOCRIT 40.1 % 40.0-54.0 PLATELET COUNT 182 k/cumm 150-450 Encounters ACCT No. Visit Discharge Status Pt. Type Provider Facility Loc./Unit Complaint Date/Time [id number] 08/04/2013 08/04/2013 CLS Outpatien 12:56:00 23:59:59 t [id number] 06/25/2013 06/25/2013 CLS Outpatien 09:46:00 23:59:59 t [id number] 06/27/2017 06/27/2017 DIS Outpatien Namita, [facility] FC Pod NPC RT GREAT 383 08:13:00 23:59:00 t Nestor Carranza TOE Clinic [id number] 01/22/2017 01/22/2017 DIS Outpatien Arceo, [facility] Sleep split east 766 19:58:00 23:59:00 t Brady Carranza CP apprvd do Clinic not move appt [id number] 01/18/2017 01/18/2017 CLS Outpatien Adis, [facility] Sleep npt amanda had 769 08:31:00 23:59:59 t Brady Carranza CP cpap dr [facility] ref [id number] 10/16/2016 10/16/2016 DIS Outpatien Cira, [facility] Mur NPV BPH AND 907 09:21:00 23:59:00 adrian Carranza Uro URINARY Clinic FREQUENCY [id number] 10/11/2016 10/11/2016 DIS Outpatien Namita, [facility] FC Pod RCK 2ND TOE 523 09:09:00 23:59:00 t Nestor Carranza CELLLULITIS Clinic [id number] 10/04/2016 10/04/2016 DIS Outpatien Namita, [facility] FC Pod RT 2ND TOE 473 09:26:00 23:59:00 t Nestor Carranza CELLULITIS Clinic [id number] 10/03/2016 10/03/2016 DIS Outpatien Niernberg [facility] E21 FM great toe 494 09:24:00 23:59:00 t Tere vizcarra pain Jose E Clinic [id number] 06/29/2016 06/29/2016 DIS Outpatien Litzner, [facility] E21 spot on lt 630 11:28:00 23:59:00 t Arron Carranza Derm forearm Clinic [id number] 06/28/2016 06/28/2016 DIS Outpatien Namita, [facility] FC Pod TCPA NPT RT 214 09:18:00 23:59:00 t Nestor Carranza FOOT cross Clinic over toe [id number] 06/07/2016 06/07/2016 DIS Outpatien Esequiel, [facility] E21 FM med check 165 13:09:00 23:59:00 t Tigist Logan Tere Clinic [id number] 01/31/2016 01/31/2016 DIS Outpatien Litzner, [facility] E21 YEARLY 628 08:47:00 23:59:00 t Arron Carranza Derm Clinic [id number] 08/23/2015 08/23/2015 DIS Outpatien Niernberg [facility] E21 FM FOLLOW UP 272 08:56:00 23:59:00 t Tere vizcarra E Clinic MONITOR [id number] 08/18/2015 08/18/2015 DIS Outpatien Niernberg [facility] Mur ERMA/PALPI 007 11:34:00 23:59:00 t Tere vizcarra TATION/ALICE Garcia E Clinic STEWART [id number] 08/08/2015 08/08/2015 DIS Outpatien Niernberg [facility] Mur SOB R06.02 913 10:39:00 23:59:00 t Tere vizcarra Card Jose E Clinic [id number] 08/08/2015 08/08/2015 DIS Outpatien Niernberg [facility] E21 FM 1 MONTH FU 597 08:04:00 23:59:00 t Tere vizcarraald E Clinic [id number] 07/06/2015 07/06/2015 DIS Outpatien Abdiel, [facility] E21 FM BLADDER 196 09:58:00 23:59:00 t Wero Carranza ISSUES Clinic HAVING TO GO ALOT [id number] 01/31/2015 01/31/2015 DIS Outpatien Litzner, [facility] E21 SPOTS ON 222 07:52:00 23:59:00 t Arron Carranza Derm ARMS Clinic [id number] 05/13/2014 05/13/2014 DIS Outpatien Niernberg [facility] E21 FM DISCUSS 562 10:02:00 23:59:00 t Tere vizcarra REFERRAL FOR Jose E Clinic NEUROLOGIST [id number] 03/20/2017 Document [id number] 05:16:46 Registrat ion [id number] 09/06/2015 11/13/2015 DIS R Schwertfe [facility] G20 798 12:34:00 23:59:00 burt [facility] [id number] 10/17/2016 Document [id number] 05:15:42 Registrat ion [id number] 10/04/2016 Document 40088 05:15:58 Registrat ion [id number] 09/04/2016 Document 18767 05:16:31 Registrat ion [id number] 08/09/2016 Document [id number] 05:16:43 Registrat ion [id number] 08/08/2016 Document 40448 05:16:26 Registrat ion [id number] 06/29/2016 Document [id number] 05:16:24 Registrat ion [id number] 06/15/2016 Document [id number] 05:16:02 Registrat ion [id number] 06/08/2016 Document 87444 05:15:33 Registrat ion [id number] 06/02/2016 Document [id number] 05:17:56 Registrat ion [id number] 05/01/2016 Document 90398 05:18:09 Registrat ion [id number] 03/13/2016 Document [id number] 05:17:50 Registrat ion [id number] 02/14/2016 Document [id number] 05:16:33 Registrat ion [id number] 12/14/2015 Document [id number] 05:16:46 Registrat ion [id number] 08/30/2015 Document [id number] 05:17:06 Registrat ion [id number] 08/24/2015 Document 98803 05:16:14 Registrat ion [id number] 08/09/2015 Document 46724 05:17:09 Registrat ion [id number] 07/07/2015 Document 77261 05:16:13 Registrat ion [id number] 06/16/2015 Document 22678 05:16:48 Registrat ion [id number] 04/13/2015 Document 99180 13:43:09 Registrat ion [id number] 04/13/2015 Document 94452 12:57:48 Registrat ion [id number] 04/13/2015 Document [id number] 11:15:16 Registrat ion [id number] 04/13/2015 Document 60240 10:26:42 Registrat ion [id number] 04/13/2015 Document 21133 09:53:20 Registrat ion [id number] 04/13/2015 Document 87249 08:53:09 Registrat ion [id number] 04/01/2017 04/01/2017 DIS Emergency Renny MaldonadoED 410 06:02:00 12:09:00 [id number] 07/01/2016 07/02/2016 DIS Emergency Jimmy MaldonadoED 898 23:25:00 01:36:00 [facility] [id number] 07/10/2017 07/10/2017 DIS Outpatien [id number] 14:14:43 14:14:43 t 1443 [id number] 07/10/2017 07/10/2017 DIS Outpatien [id number] 14:14:39 14:14:39 t 1439 [id number] 07/10/2017 07/10/2017 DIS Outpatien [id number] 08:31:17 08:31:17 t 3117 [id number] 07/10/2017 07/10/2017 DIS Outpatien [id number] 08:30:30 08:30:30 t 3030 [id number] 07/10/2017 07/10/2017 DIS Outpatien [id number] 07:56:05 07:56:05 t 5605 [id number] 07/10/2017 07/10/2017 DIS Outpatien [id number] 07:56:03 07:56:04 t 5603 [id number] 07/10/2017 07/10/2017 DIS Outpatien [id number] 07:38:00 07:38:00 t 3800 [id number] 07/10/2017 07/10/2017 DIS Outpatien [id number] 07:37:58 07:37:58 t 3758 [id number] 07/09/2017 07/09/2017 DIS Outpatien [id number] 08:51:38 08:51:38 t 5138 [id number] 07/05/2017 07/05/2017 CLS Outpatien [id number] 10:36:27 23:59:59 t 3627 [id number] 07/04/2017 07/04/2017 DIS Outpatien [id number] 09:56:54 09:56:54 t 5654 [id number] 07/04/2017 07/04/2017 ACT Outpatien [id number] 06:38:30 06:38:30 t 3830 [id number] 07/03/2017 07/03/2017 CLS Outpatien [id number] 12:15:05 23:59:59 t 1505 [id number] 07/03/2017 07/03/2017 CLS Outpatien [id number] 12:12:08 23:59:59 t 1208 [id number] 07/03/2017 07/03/2017 CLS Outpatien [id number] 11:18:53 23:59:59 t 1853 [id number] 07/03/2017 07/03/2017 CLS Outpatien [id number] 11:14:42 23:59:59 t 1442 [id number] 07/03/2017 07/03/2017 CLS Outpatien [id number] 11:14:40 23:59:59 t 1440 [id number] 07/03/2017 07/03/2017 CLS Outpatien [id number] 11:13:44 23:59:59 t 1344 [id number] 07/03/2017 07/03/2017 CLS Outpatien [id number] 11:13:40 23:59:59 t 1340 [id number] 07/03/2017 07/03/2017 CLS Outpatien [id number] 11:12:38 23:59:59 t 1238 [id number] 07/03/2017 07/03/2017 CLS Outpatien [id number] 11:12:37 23:59:59 t 1237 [id number] 07/03/2017 07/03/2017 CLS Outpatien [id number] 11:11:37 23:59:59 t 1137 [id number] 07/01/2017 07/01/2017 CLS Outpatien [id number] 09:13:03 23:59:59 t 1303 [id number] 07/01/2017 07/01/2017 DIS Outpatien [id number] 13:30:26 13:30:27 t 3026 [id number] 06/06/2017 06/06/2017 DIS Outpatien [id number] 09:21:09 09:21:09 t 2109 [id number] 06/03/2017 06/03/2017 CLS Outpatien [id number] 16:21:49 23:59:59 t 2149 [id number] 04/25/2017 04/25/2017 CLS Outpatien [id number] 16:19:36 23:59:59 t 1936 [id number] 03/29/2017 03/29/2017 CLS Outpatien [id number] 12:13:57 23:59:59 t 1357 [id number] 03/28/2017 03/28/2017 CLS Outpatien [id number] 17:14:58 23:59:59 t 1458 [id number] 03/28/2017 03/28/2017 CLS Outpatien [id number] 11:56:29 23:59:59 t 5629 [id number] 03/28/2017 03/28/2017 CLS Outpatien [id number] 10:13:31 23:59:59 t 1331 [id number] 03/28/2017 03/28/2017 CLS Outpatien [id number] 10:10:09 23:59:59 t 1009 [id number] 12/10/2016 12/10/2016 CLS Outpatien [id number] 10:12:36 23:59:59 t 1236 [id number] 12/07/2016 12/07/2016 CLS Outpatien [id number] 11:24:12 23:59:59 t 2412 [id number] 12/07/2016 12/07/2016 CLS Outpatien [id number] 10:56:42 23:59:59 t 5642 [id number] 12/07/2016 12/07/2016 CLS Outpatien [id number] 10:52:54 23:59:59 t 5254 [id number] 12/07/2016 12/07/2016 CLS Outpatien [id number] 10:21:37 23:59:59 t 2137 [id number] 12/07/2016 12/07/2016 CLS Outpatien [id number] 10:17:44 23:59:59 t 1744 [id number] 12/07/2016 12/07/2016 CLS Outpatien [id number] 10:17:33 23:59:59 t 1733 [id number] 12/07/2016 12/07/2016 CLS Outpatien [id number] 10:15:44 23:59:59 t 1544 [id number] 12/07/2016 12/07/2016 CLS Outpatien [id number] 10:13:25 23:59:59 t 1325 [id number] 12/07/2016 12/07/2016 ACT Outpatien [id number] 06:49:54 06:49:54 t 4954 [id number] 12/03/2016 12/03/2016 DIS Outpatien [id number] 09:44:30 09:44:32 t 4430 [id number] 10/15/2016 10/15/2016 DIS Outpatien [id number] 12:51:22 12:51:23 t 5122 [id number] 06/28/2016 06/28/2016 DIS Outpatien [id number] 08:15:23 08:15:23 t 1523 [id number] 06/27/2016 06/27/2016 DIS Outpatien [id number] 18:00:30 18:00:30 t 0030 [id number] 06/27/2016 06/27/2016 DIS Outpatien [id number] 15:44:39 15:44:40 t 4439 [id number] 06/27/2016 06/27/2016 DIS Outpatien [id number] 15:44:35 15:44:35 t 4435 [id number] 06/27/2016 06/27/2016 DIS Outpatien [id number] 15:19:37 15:19:40 t 1937 [id number] 06/27/2016 06/27/2016 DIS Outpatien [id number] 15:18:48 15:18:50 t 184 [id number] 06/27/2016 06/27/2016 DIS Outpatien [id number] 15:18:35 15:18:37 t 1835 [id number] 06/27/2016 06/27/2016 DIS Outpatien [id number] 15:12:51 15:12:53 t 1251 [id number] 06/27/2016 06/27/2016 ACT Outpatien [id number] 06:39:17 06:39:17 t 3917 [id number] 04/26/2016 04/26/2016 DIS Outpatien [id number] 09:39:45 09:39:45 t 3945 [id number] 04/26/2016 04/26/2016 DIS Outpatien [id number] 09:39:44 09:39:44 t 3944 [id number] 04/26/2016 04/26/2016 DIS Outpatien [id number] 09:39:20 09:39:20 t 3920 [id number] 02/16/2016 02/16/2016 CLS Outpatien [id number] 12:28:20 23:59:59 t 2820 [id number] 02/16/2016 02/16/2016 DIS Outpatien [id number] 09:20:40 09:20:40 t 204 [id number] 02/14/2016 02/14/2016 ACT Outpatien [id number] 02:16:12 02:16:13 t 1612 [id number] 02/14/2016 02/14/2016 ACT Outpatien [id number] 02:15:22 02:15:22 t 1522 [id number] 02/14/2016 02/14/2016 ACT Outpatien [id number] 02:15:21 02:15:21 t 1521 [id number] 02/14/2016 02/14/2016 ACT Outpatien [id number] 02:14:42 02:14:42 t 1442 [id number] 02/14/2016 02/14/2016 ACT Outpatien [id number] 02:14:41 02:14:41 t 1441 [id number] 09/14/2015 09/14/2015 CLS Outpatien [id number] 08:31:58 23:59:59 t 3158 [id number] 07/28/2015 07/28/2015 CLS Outpatien [id number] 21:58:56 23:59:59 t 5856 [id number] 07/21/2015 07/21/2015 CLS Outpatien [id number] 10:40:01 23:59:59 t 4001 [id number] 07/20/2015 07/20/2015 CLS Outpatien [id number] 14:52:07 23:59:59 t 5207 [id number] 07/20/2015 07/20/2015 CLS Outpatien [id number] 11:00:05 23:59:59 t 0005 [id number] 07/20/2015 07/20/2015 CLS Outpatien [id number] 09:38:02 23:59:59 t 3802 [id number] 07/20/2015 07/20/2015 CLS Outpatien [id number] 09:35:58 23:59:59 t 3558 [id number] 07/20/2015 07/20/2015 CLS Outpatien [id number] 09:35:55 23:59:59 t 3555 [id number] 07/20/2015 07/20/2015 DIS Outpatien [id number] 09:34:56 09:34:56 t 3456 [id number] 06/13/2015 06/13/2015 CLS Outpatien [id number] 14:03:10 23:59:59 t 0310 [id number] 05/23/2015 05/23/2015 DIS Outpatien [id number] 11:01:15 11:01:15 t 0115 [id number] 05/18/2015 05/18/2015 CLS Outpatien [id number] 16:09:51 23:59:59 t 0951 [id number] 05/18/2015 05/18/2015 CLS Outpatien [id number] 12:56:02 23:59:59 t 5602 [id number] 05/18/2015 05/18/2015 DIS Outpatien [id number] 13:47:55 13:47:55 t 4755 [id number] 05/18/2015 05/18/2015 DIS Outpatien [id number] 12:58:08 12:58:09 t 5808 [id number] 05/18/2015 05/18/2015 DIS Outpatien [id number] 12:56:05 12:56:05 t 5605 [id number] 05/18/2015 05/18/2015 DIS Outpatien [id number] 12:55:58 12:55:59 t 5558 [id number] 05/10/2015 05/10/2015 CLS Outpatien [id number] 13:18:51 23:59:59 t 185 [id number] 05/10/2015 05/10/2015 DIS Outpatien [id number] 13:17:59 13:18:00 t 175 [id number] 01/12/2015 01/12/2015 DIS Outpatien [id number] 10:08:15 10:08:17 t 0815 [id number] 01/11/2015 01/11/2015 CLS Outpatien [id number] 12:27:09 23:59:59 t 2709 [id number] 01/11/2015 01/11/2015 DIS Outpatien [id number] 11:55:55 11:56:00 t 5555 [id number] 01/11/2015 01/11/2015 DIS Outpatien [id number] 11:27:36 11:27:38 t 2736 [id number] 01/11/2015 01/11/2015 DIS Outpatien [id number] 11:26:42 11:26:46 t 2642 [id number] 01/11/2015 01/11/2015 DIS Outpatien [id number] 10:54:26 10:54:30 t 5426 [id number] 01/11/2015 01/11/2015 DIS Outpatien [id number] 10:43:39 10:43:41 t 4339 [id number] 10/13/2014 10/13/2014 CLS Outpatien [id number] 13:40:51 23:59:59 t 4051 [id number] 10/13/2014 10/13/2014 CLS Outpatien [id number] 12:56:23 23:59:59 t 5623 [id number] 10/07/2014 10/07/2014 DIS Outpatien [id number] 18:13:35 18:13:35 t 1335 [id number] 10/07/2014 10/07/2014 DIS Outpatien [id number] 14:54:46 14:54:49 t 5446 [id number] 10/07/2014 10/07/2014 DIS Outpatien [id number] 13:48:46 13:48:47 t 4846 [id number] 10/07/2014 10/07/2014 DIS Outpatien [id number] 13:36:36 13:36:36 t 3636 [id number] 09/30/2014 09/30/2014 DIS Outpatien [id number] 10:13:00 10:13:02 t 1300 [id number] 09/29/2014 09/29/2014 DIS Outpatien [id number] 15:16:06 15:16:08 t 1606 [id number] 09/29/2014 09/29/2014 DIS Outpatien [id number] 14:48:54 14:48:54 t 4854 [id number] 09/29/2014 09/29/2014 DIS Outpatien [id number] 14:45:55 14:45:55 t 4555 [id number] 09/29/2014 09/29/2014 DIS Outpatien [id number] 09:16:10 09:16:10 t 1610 [id number] 09/29/2014 09/29/2014 DIS Outpatien [id number] 09:15:03 09:15:04 t 1503 [id number] 05/13/2014 05/13/2014 CLS Outpatien [id number] 10:42:11 23:59:59 t 4211 [id number] 05/13/2014 05/13/2014 CLS Outpatien [id number] 10:42:09 23:59:59 t 4209 [id number] 05/13/2014 05/13/2014 CLS Outpatien [id number] 10:40:23 23:59:59 t 4023 [id number] 07/12/2017 DIS Outpatien [id number] 12:10:48 t 1048 [id number] 07/12/2017 DIS Outpatien [id number] 10:12:06 t 1206 [id number] 07/10/2017 Document [id number] 14:15:00 Registrat 15 ion [id number] 07/05/2017 Document [id number] 17:13:25 Registrat 1325 ion [id number] 07/03/2017 Document [id number] 16:56:30 Registrat 5630 ion [id number] 07/03/2017 Document [id number] 11:16:00 Registrat 16 ion [id number] 03/28/2017 Document [id number] 18:28:11 Registrat 2811 ion [id number] 03/28/2017 Document [id number] 10:17:00 Registrat 17 ion [id number] 12/07/2016 Document [id number] 10:56:52 Registrat 5652 ion [id number] 12/07/2016 Document [id number] 10:20:00 Registrat 20 ion [id number] 07/02/2016 Document [id number] 13:40:05 Registrat 4005 ion [id number] 06/28/2016 Document [id number] 07:37:14 Registrat 3714 ion [id number] 06/27/2016 Document [id number] 15:20:00 Registrat 20 ion [id number] 02/13/2016 Document [id number] 17:25:41 Registrat 2541 ion [id number] 02/13/2016 Document [id number] 17:23:00 Registrat 23 ion [id number] 07/28/2015 Document [id number] 10:51:53 Registrat 5153 ion [id number] 07/25/2015 Document [id number] 07:25:33 Registrat 2533 ion [id number] 07/20/2015 Document [id number] 09:39:00 Registrat 39 ion [id number] 05/25/2015 Document [id number] 08:38:10 Registrat 3810 ion [id number] 05/22/2015 Document [id number] 21:45:25 Registrat 4525 ion [id number] 05/18/2015 Document [id number] 13:02:00 Registrat 02 ion [id number] 05/18/2015 Document [id number] 13:01:00 Registrat 01 ion [id number] 02/06/2015 Document [id number] 17:16:55 Registrat 1655 ion [id number] 01/14/2015 Document [id number] 08:34:36 Registrat 3436 ion [id number] 01/11/2015 Document [id number] 13:10:32 Registrat ion [id number] 01/11/2015 Document [id number] 13:10:29 Registrat ion [id number] 01/11/2015 Document [id number] 13:10:24 Registrat ion [id number] 01/11/2015 Document [id number] 13:10:21 Registrat ion [id number] 01/11/2015 Document [id number] 13:10:17 Registrat ion [id number] 01/11/2015 Document [id number] 11:19:59 Registrat ion [id number] 01/11/2015 Document [id number] 11:19:26 Registrat ion [id number] 01/11/2015 Document [id number] 10:51:00 Registrat 51 ion [id number] 01/11/2015 Document [id number] 10:23:21 Registrat ion [id number] 12/22/2014 Document [id number] 06:51:08 Registrat ion [id number] 12/22/2014 Document [id number] 06:51:06 Registrat ion [id number] 12/22/2014 Document [id number] 06:51:03 Registrat ion [id number] 12/22/2014 Document [id number] 06:51:00 Registrat ion [id number] 12/22/2014 Document [id number] 06:50:58 Registrat ion [id number] 10/07/2014 Document [id number] 18:13:37 Registrat 1337 ion [id number] 10/07/2014 Document [id number] 13:53:00 Registrat 53 ion [id number] 09/30/2014 Document [id number] 09:15:18 Registrat 1518 ion [id number] 09/29/2014 Document [id number] 15:25:58 Registrat 2558 ion [id number] 09/29/2014 Document [id number] 14:51:00 Registrat 51 ion [id number] 07/16/2014 Document [id number] 08:09:00 Registrat 09 ion
--- OUTSIDE RECORDS SUMMARY | 2017-07-13 11:40 | External Medical Summary | Referral Summary ---
:1935 Author Organization [facility] Address [address] [place] [address] Care Team Providers Name Role Phone Jose Carroll Primary Care Physician Unavailable Encounter [facility] [id number] Date(s): 08/23/15 - 08/23/15 [facility] [address] [place] [address]- us Discharge Diagnosis: Shortness of breath Discharge Disposition: 01-Home or Self Care Attending Physician: Jose Carroll DO Admitting Physician: Jose Carroll DO Vital Signs Most recent to oldest [Reference Range]: 1 Temperature Oral [35.8-37.3 degC] 37 degC (08/23/15 9:04 AM) Peripheral Pulse Rate [60-100 bpm] 80 bpm (08/23/15 9:04 AM) Blood Pressure [90-140/60-90 mmHg] 120/74 mmHg (08/23/15 9:04 AM) SpO2 96 % (08/23/15 9:04 AM) Problem List Condition Effective Dates Status [...] MOUTH ONCE DAILY, # 90 tabs, eRx: [id number], TAKE ONE TABLET BY MOUTH ONCE DAILY Start Date: 06/15/15 Status: OrderedAzilect Oral, Daily, 0 Refill(s) Start Date: 03/16/14 Status: OrderedEliquis 5 mg oral tablet 5 mg 1 tabs, Oral, BID, # 60 tabs, 2 Refill(s), Pharmacy: [id number], 1 tabs Oral BID Start Date: 08/19/15 Status: OrderedFlomax 0.4 mg oral capsule 0.4 mg 1 caps, Oral, Daily, # 30 caps, 6 Refill(s), Pharmacy: [id number], 1 caps Oral Daily Start Date: 08/08/15 Status: OrderedPlavix 75 mg oral tablet 75 mg 1 tabs, Oral, Daily, # 30 tabs, 0 Refill(s) Start Date: 08/23/15 Status: OrderedSinemet 25 mg-100 mg oral tablet 2 tabs, Oral, TID, # 180 Each, 11 Refill(s) Start Date: 11/26/13 Status: Ordered Results Hematology Most recent to oldest [Reference Range]: 1 WBC [4.8-10.8 10*3/uL] 5.5 10*3/uL (08/23/15 9:27 AM) RBC [4.60-6.20] 4.35 *LOW* (08/23/15 9:27 AM) Hgb [14.0-18.0 gm/dL] 13.6 gm/dL *LOW* (08/23/15 9:27 AM) Hct [42.0-52.0 %] 42.8 % (08/23/15 9:27 AM) MCV [82.0-99.0 fL] 98.4 fL (08/23/15 9:27 AM) MCH [27.0-32.0 pg] 31.3 pg (08/23/15 9:27 AM) MCHC [32.0-36.0 gm/dL] 31.8 gm/dL *LOW* (08/23/15 9:27 AM) RDW [11.5-14.5 %] 14.7 % *HI* (08/23/15 9:27 AM) Platelet [150-400 10*3/uL] 200 10*3/uL (08/23/15 9:27 AM) MPV [8.8-14.8 fL] 10.1 fL (08/23/15 9:27 AM) Immature Granulocytes [0.0-1.0 %] 0.5 % (08/23/15 9:27 AM) Neutrophils [51-75 %] 66 % (08/23/15 9:27 AM) Lymphocytes [20-46 %] 21 % (08/23/15 9:27 AM) Monocytes [4-11 %] 9 % (08/23/15 9:27 AM) Eosinophils [0-4 %] 3 % (08/23/15 9:27 AM) Basophils [0-2 %] 0 % (08/23/15 9:27 AM) Neutro Absolute [1.90-7.00 10*3] 3.62 10*3 (08/23/15 9:27 AM) Lymph Absolute [0.80-3.30 10*3] 1.17 10*3 (08/23/15 9:27 AM) [place] Absolute [0.30-1.00 10*3] 0.49 10*3 (08/23/15 9:27 AM) Eos Absolute [0.00-0.50 10*3] 0.14 10*3 (08/23/15 9:27 AM) Baso Absolute [0.00-0.20 10*3] 0.02 10*3 (08/23/15 9:27 AM) Chemistry Most recent to oldest [Reference Range]: 1 Sodium Lvl [135-144 mEq/L] 143 mEq/L (08/23/15 9:27 AM) Potassium Lvl [3.5-5.2 mEq/L] 4.3 mEq/L (08/23/15 9:27 AM) Chloride [99-111 mEq/L] 108 mEq/L (08/23/15 9:27 AM) CO2 [23-31 mEq/L] 27 mEq/L (08/23/15 9:27 AM) AGAP [3-20] 8 (08/23/15 9:27 AM) BUN [8-26 mg/dL] 11 mg/dL (08/23/15 9:27 AM) Glucose Lvl [70-99 mg/dL] 102 mg/dL *HI* (08/23/15 9:27 AM) Creatinine Lvl [0.72-1.25 mg/dL] 0.81 mg/dL (08/23/15 9:27 AM) eGFR [>60 mL/min] >60 mL/min 1 (08/23/15 9:27 AM) Calcium Lvl [8.9-10.5 mg/dL] 9.5 mg/dL (08/23/15 9:27 AM) Albumin Lvl [3.4-4.8 gm/dL] 4.0 gm/dL (08/23/15 9:27 AM) Total Protein [6.2-8.1 gm/dL] 6.2 gm/dL (08/23/15 9:27 AM) Globulin [1.8-4.0 gm/dL] 2.2 gm/dL (08/23/15 9:27 AM) ALT [0-55 U/L] 10 U/L (08/23/15 9:27 AM) AST [5-34 U/L] 16 U/L (08/23/15 9:27 AM) Alk Phos [40-150 U/L] 60 U/L (08/23/15 9:27 AM) Bili Total [0.2-1.2 mg/dL] 0.6 mg/dL (08/23/15 9:27 AM) PSA (wihout Reflex Free) [0.0-6.5 ng/mL] 1.7 ng/mL 2 (08/23/15 9:27 AM) 1Result Comment: Multiply eGFR results by 1.21 for race.2Result Comment: AUA PSA Best Practice Guidelines: Age-Adjusted PSA Values by Ethnic Group Age Range Asians - Caucasians Americans 40-49 0-2.0 0-2.0 0-2.5 50-59 0-3.0 0-4.0 0-3.5 60-69 0-4.0 0-4.5 0-4.5 70-79 0-5.0 0-5.5 0-6.5 Immunizations Vaccine Date Refusal Reason influenza virus vaccine, live 03/19/13 Procedures Procedure Date Related Diagnosis Body Site Colonoscopy Hernia repair(L) Inguinal Social History Social History Type Response Smoking Status Never smoker Assessment and Plan Extracted from: Title: Office Visit Note Author: Jose Carroll DO Date: 08/23/15 Assessment/Plan Nocturia Shortness of breath Since Holter monitor was unremarkablewe will obtain chest x-rayto determine other therapeutic or diagnostic modality Ordered: XR Chest 2 Views Orders: clopidogrel, 75 mg 1 tabs, Oral, Daily, # 30 tabs, 0 Refill(s)
--- OUTSIDE RECORDS SUMMARY | 2017-07-13 11:40 | External Medical Summary | Referral Summary ---
:[address] [facility] Address [address] [place] [address] Care Team Providers Name Role Phone Jose Carroll Primary Care Physician Encounter [facility] [id number] Date(s): 09/06/15 - 11/13/[address] [facility] [address] [place] [address]- Final: Parkinson's disease Discharge Disposition: 01-Home or Self Care Attending Physician: Angel Escobar MD Vital Signs No data available for this [...] CALL TO SCHEDULE), # 90 tabs[id number], TAKE ONE TABLET BY MOUTH ONCE DAILY (PATIENT NEEDS APPOINTMENT PLEASE CALL TO SCHEDULE) Start Date: 08/29/15 Status: OrderedAzilect Oral, Daily, 0 Refill(s) Start Date: 03/16/14 Status: OrderedEliquis 5 mg oral tablet 5 mg 1 tabs, Oral, BID, # 60 tabs, 2 Refill(s), Pharmacy: [id number], 1 tabs Oral BID Start Date: 08/19/15 Status: OrderedFlomax 0.4 mg oral capsule 0.4 mg 1 caps, Oral, Daily, # 30 caps, 6 Refill(s), Pharmacy: [id number], 1 caps Oral Daily Start [...]
[2017-07-13] MEDS ORDERED: HALOPERIDOL 0.5 MG TABLET PO PRN (12:59)
[2017-07-13] MEDS ORDERED: LORazepam 1 MG TABLET PO ONE (12:59)
[2017-07-13] MEDS ORDERED: HALOPERIDOL 5 MG/ML INJECTION IM PRN (12:59)
--- NOTE | 2017-07-13 12:59 | Emergency Department Report ---
Medical Clearance HPI - General Chief complaint: Medical Clearance Stated complaint: [facility] eval Time Seen by Provider: 07/13/17 11:13 - History of Present Illness HPI Narrative: 82 yo ,male with confusion, agitation and paranoia which is worsening. Family has met with Psych and recommendation is that pt be admitted to [facility] for inpatient treatment. He will need a medical clearance and is presenting to ED. Home medications: Home Medications Medication Instructions Recorded Confirmed Apixaban [Eliquis] 5 mg PO DAILY 07/13/17 07/13/17 Atenolol [Tenormin] 25 mg PO DAILY 07/13/17 07/13/17 Carbidopa/Levodopa 2 tab PO TID 07/13/17 07/13/17 [Carbidopa-Levodopa 25-100 Tab] Clopidogrel [Plavix] 75 mg PO DAILY 07/13/17 07/13/17 Memantine [Namenda] 5 mg PO DAILY 07/13/17 07/13/17 Quetiapine [Seroquel] 12.5 mg PO HS 07/13/17 07/13/17 Rasagiline Mesylate [Azilect] 1 mg PO DAILY 07/13/17 07/13/17 Tamsulosin [Flomax] 0.4 mg PO DAILY 07/13/17 07/13/17 Allergies/Adverse reactions: Allergies Allergy/AdvReac Type Severity Reaction Status Date / Time No Known Allergies Allergy Verified 07/13/17 11:26 Review of Systems All systems: reviewed and negative except as stated PFSH Patient Stated Medical History Dementia Yes Parkinson's Disease Yes Cardiac Arrhythmia Yes: A-FIB - Social History Smoking status: Never smoker Substance use type: does not use Physical Exam - Limitations Limitations: altered mental status - General General appearance: alert, in no apparent distress - Normal Exams: Head:: Normocephalic without trauma Chest/Respirations:: Clear all kam[place], with good airflow, and symmetry bilaterally Cardiovascular:: Regular rate and rhythm (hx of afib, but no irreg heard at this time.), without murmur or gallop, Pulses 2+ all extremities, capillary refill, <2 seconds all extremities Abdomen:: Bowel sounds positive, soft, non-tender, non-distended, no hepatosplenomegaly, masses or bruits noted Neurological:: Patient is alert, cranial nerves, motor/sensory/cerebellar, exams w/o gross deficits, to observation ( tremor noted.) Course Vital Signs Temperature 98.3 F 07/13/17 11:02 Pulse Rate 62 07/13/17 11:02 Respiratory Rate 16 07/13/17 11:02 Blood Pressure 170/81 H 07/13/17 11:02 Pulse Oximetry 98 07/13/17 11:02 Temperature 99.5 F 07/31/17 08:00 Pulse Rate 70 07/31/17 08:00 Respiratory Rate 20 07/31/17 08:00 Blood Pressure 158/84 H 07/31/17 08:00 Pulse Oximetry 98 07/31/17 08:00 Medical Clearance - MDM Narrative Medical decision making narrative: EKG, cbc,cmp,tsh,cxr, ua and head ct neg. Pt cleared for admit to [facility]. Discussed and pt accepted for admission - Differential Diagnosis Differential Diagnosis Narrative: psychosis, parkinsons, paranoia - Medical Records Attestation: I reviewed the patient's medical records. - Lab Data Attestation: I reviewed the patient's lab results. Result diagrams: 07/29/17 10:44 07/29/17 10:44 Lab Results 07/13/17 07/13/17 07/13/17 Range/Units 11:50 11:53 11:53 WBC 5.4 (4.5-11.0) T/MM3 RBC 4.07 L (4.50-5.90) M/MM3 Hgb 12.7 L (13.5-17.5) GM/DL Hct 40.8 L (41-53) % MCV 100.2 H (80-100) UM3 MCH 31.2 (26-34) UUG MCHC 31.1 (31-37) GM/DL RDW Std Deviation 51.8 H (36.9-50.2) FL Plt Count 208 (130-400) T/MM3 MPV 10.4 (9.4-12.4) UM3 Immature Gran % (Auto) 0.6 H (0.0-0.5) % Neut % (Auto) 71.5 H (33-66) % Lymph % (Auto) 17.2 L (23-45) % [place] % (Auto) 8.0 (0-9.0) % Eos % (Auto) 2.1 (0-4) % Baso % (Auto) 0.6 (0-2) % Neut # (Auto) 3.8 (1.8-7.7) T/MM3 Lymph # (Auto) 0.9 L (1-4.8) T/MM3 [place] # (Auto) 0.4 (0-0.8) T/MM3 Eos # (Auto) 0.1 (0-0.5) T/MM3 Baso # (Auto) 0.0 (0-0.2) T/MM3 Abs Immat Gran (auto) 0.03 (0.00-0.03) T/MM3 Turbidity < 20 (0-20) Sodium 142 (134-144) MEQ/L Potassium 4.3 (3.6-5) MEQ/L Chloride 107 (98-107) MEQ/L Carbon Dioxide 27 (22-30) MEQ/L Anion Gap 8 (5-15) MEQ/L BUN 14.0 (9-20) MG/DL Creatinine 0.7 L (0.8-1.5) MG/DL GFR Calculation 109 BUN/Creatinine Ratio 20 (6-26) RATIO Glucose 101 (75-110) MG/DL Calculated Osmolality 274 (261-280) MOSM/KG Calcium 9.6 (8.4-10.2) MG/DL Total Bilirubin 0.60 (0.20-1.30) MG/DL Icterus Index < 2 (0-7) AST 26 (17-59) U/L ALT 33 (21-72) U/L Alkaline Phosphatase 48 (38-126) U/L Total Protein 6.7 (6.3-8.2) G/DL Albumin 4.1 (3.5-5.0) G/DL Globulin 2.6 (2.4-3.6) G/DL Albumin/Globulin Ratio 1.6 (1.1-2.2) RATIO Vitamin B12 185 L (239-931) PG/ML Folate > 20.0 H (2.76-20) NG/ML TSH 0.84 (0.47-4.68) MIU/L Specimen Hemolysis < 15 (0-25) Ur Collection Type Urine Color (YELLOW) Urine Clarity Urine pH (5.0-8.0) Ur Specific [place] (1.015-1.025) Urine Protein (NEGATIVE) Urine Glucose (UA) (NEGATIVE) Urine Ketones (NEGATIVE) Urine Occult Blood (NEGATIVE) Urine Nitrate (NEGATIVE) Urine Bilirubin (NEGATIVE) Urine Urobilinogen (NORMAL) EU/DL Ur Leukocyte Esterase (NEGATIVE) Urinalysis Comment Salicylates < 1.0 L (2-20) MG/DL Urine Opiates Screen ng/mL Ur Oxycodone Screen ng/mL Urine Methadone Screen ng/mL Ur Propoxyphene Screen ng/mL Acetaminophen < 10 L (10-30) UG/ML Ur Barbiturates Screen ng/mL U Tricyclic Antidepress ng/mL Ur Phencyclidine Scrn ng/mL Ur Amphetamines Screen ng/mL U Methamphetamines Scrn ng/mL U Benzodiazepines Scrn ng/mL Urine Cocaine Screen ng/mL U Cannabinoids Screen ng/mL Alcohol, Quantitative <10 (<10) MG/DL 07/13/17 07/13/17 Range/Units 12:02 12:02 WBC (4.5-11.0) T/MM3 RBC (4.50-5.90) M/MM3 Hgb (13.5-17.5) GM/DL Hct (41-53) % MCV (80-100) UM3 MCH (26-34) UUG MCHC (31-37) GM/DL RDW Std Deviation (36.9-50.2) FL Plt Count (130-400) T/MM3 MPV (9.4-12.4) UM3 Immature Gran % (Auto) (0.0-0.5) % Neut % (Auto) (33-66) % Lymph % (Auto) (23-45) % [place] % (Auto) (0-9.0) % Eos % (Auto) (0-4) % Baso % (Auto) (0-2) % Neut # (Auto) (1.8-7.7) T/MM3 Lymph # (Auto) (1-4.8) T/MM3 [place] # (Auto) (0-0.8) T/MM3 Eos # (Auto) (0-0.5) T/MM3 Baso # (Auto) (0-0.2) T/MM3 Abs Immat Gran (auto) (0.00-0.03) T/MM3 Turbidity (0-20) Sodium (134-144) MEQ/L Potassium (3.6-5) MEQ/L Chloride (98-107) MEQ/L Carbon Dioxide (22-30) MEQ/L Anion Gap (5-15) MEQ/L BUN (9-20) MG/DL Creatinine (0.8-1.5) MG/DL GFR Calculation BUN/Creatinine Ratio (6-26) RATIO Glucose (75-110) MG/DL Calculated Osmolality (261-280) MOSM/KG Calcium (8.4-10.2) MG/DL Total Bilirubin (0.20-1.30) MG/DL Icterus Index (0-7) AST (17-59) U/L ALT (21-72) U/L Alkaline Phosphatase (38-126) U/L Total Protein (6.3-8.2) G/DL Albumin (3.5-5.0) G/DL Globulin (2.4-3.6) G/DL Albumin/Globulin Ratio (1.1-2.2) RATIO Vitamin B12 (239-931) PG/ML Folate (2.76-20) NG/ML TSH (0.47-4.68) MIU/L Specimen Hemolysis (0-25) Ur Collection Type Urine, void-cc/notcc Urine Color Yellow (YELLOW) Urine Clarity Clear Urine pH 7.0 (5.0-8.0) Ur Specific [place] 1.010 L (1.015-1.025) Urine Protein Negative (NEGATIVE) Urine Glucose (UA) Negative (NEGATIVE) Urine Ketones Negative (NEGATIVE) Urine Occult Blood Negative (NEGATIVE) Urine Nitrate Negative (NEGATIVE) Urine Bilirubin Negative (NEGATIVE) Urine Urobilinogen 0.2 (NORMAL) EU/DL Ur Leukocyte Esterase Trace A (NEGATIVE) Urinalysis Comment Microscopic not ind. Salicylates (2-20) MG/DL Urine Opiates Screen Negative ng/mL Ur Oxycodone Screen Negative ng/mL Urine Methadone Screen Negative ng/mL Ur Propoxyphene Screen Negative ng/mL Acetaminophen (10-30) UG/ML Ur Barbiturates Screen Negative ng/mL U Tricyclic Antidepress Negative ng/mL Ur Phencyclidine Scrn Negative ng/mL Ur Amphetamines Screen Negative ng/mL U Methamphetamines Scrn Negative ng/mL U Benzodiazepines Scrn Negative ng/mL Urine Cocaine Screen Negative ng/mL U Cannabinoids Screen Negative ng/mL Alcohol, Quantitative (<10) MG/DL - Radiology Data Attestation: I reviewed the patient's radiology results. Disposition Clinical Impression: Parkinson's , Mental status changes Disposition: 02 To [facility] Acute Care Condition: Stable Time of Disposition: 14:06 - Seen By: physician
--- NOTE | 2017-07-13 13:37 | CT Scan Report ---
Indication: ms changes PROCEDURE: CT head/brain wo con: Encounter: Initial Comparison: None. FINDINGS: There is mild prominence of the ventricles and sulci compatible with cortical atrophy. There is no mass, mass effect, or midline shift. No evidence for intracranial hemorrhage. No intra or extra-axial fluid collections. No evidence for depressed skull fracture. The included portions of the sinuses are clear. IMPRESSION: Mild cortical atrophy. No evidence for acute cortical infarct, intracranial hemorrhage, or mass. Preliminary report was provided by Sherie espinosa .
[2017-07-13 14:22] VITALS: BMI 22.2
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
[2017-07-13] MEDS: QUETIAPINE 25 MG TABLET PO SCH (20:10)
[2017-07-14] MEDS: APIXABAN 5 MG TABLET PO SCH (08:57)
[2017-07-14] MEDS: MEMANTINE 5 MG TABLET PO SCH (08:57)
[2017-07-14] MEDS: ATENOLOL 25 MG TABLET PO SCH (08:57)
[2017-07-14] MEDS: CLOPIDOGREL 75 MG TABLET PO SCH (08:57)
[2017-07-14] MEDS: TAMSULOSIN 0.4 MG CAPSULE PO SCH (08:58)
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
--- NOTE | 2017-07-14 17:22 | Progress Note ---
- Date 07/14/17 Subjective: SUNDAR is seen in follow up. He is very restless, won't sit still. Tries to examine a computer. He wants to go "over there"- is unstable on his feet. I did attempt to help him to another staff member's care given his instability. He did allow me a quick exam, but he is otherwise non- cooperative. Nursing chart reviewed. He was very hypersexual last night with staff and required redirection. Mood remains unstable. Objective Vital signs: Temperature 98.0 F 07/14/17 16:00 Pulse Rate 62 07/14/17 16:00 Respiratory Rate 22 07/14/17 16:00 Blood Pressure 130/67 07/14/17 16:00 Pulse Oximetry 96 07/14/17 16:00 Height/Weight/BMI: Height 1.65 m Weight 60.7 kg Body Mass Index 22.2 - Constitutional Present: thin, disheveled, agitated. Absent: cooperative - Routine HEENT Exam Head: Present: normocephalic, atraumatic Eye: Present: EOMI, PERRL - Routine Respiratory Exam Present: decreased breath sounds, CTA bilaterally. Absent: rhonchi, wheezes, crackles - Routine Cardiovascular Exam Present: RRR, S1, S2 - Routine Abdominal Exam Present: soft, normoactive bowel sounds, non distended, non tender - Routine Extremities Exam Present: no edema, non tender - Routine Musculoskeletal Exam Musculoskeletal: Absent: normal gait - Routine Skin Exam Present: intact, dry, warm - Routine Neurological Exam Present: alert, moving all extremities. Absent: oriented X3 - Routine Psychiatric Exam Present: agitated. Absent: cooperative, good insight, good judgment Results - Labs CBC & Chem 7: 07/13/17 11:53 07/13/17 11:53 Assessment and Plan (1) Major neurocognitive disorder Problem details: with behavioral disturbance Current visit: Yes Status: Acute Assessment and Plan: Assessment Dementia with behavioral disorder. Macrocytic anemia, unspecified. Parkinson's disease. Chronic a-fib. Chronic anticoagulation with Eliquis. BPH. Hypertension. CAD. Plan - 07/14/17 Patient remains irritable, unstable mood. Hypersexual with staff. Some of his initial labs are pending. Mild anemia- monitor. He is high risk for falls, and has a hx of SDH. Would consider changing anticoagulation to ASA given bleeding risk. Continue supportive care. Resuscitation Status: Full Code - Physician Narrative Narrative: Date: 07/14/17 Time: 1719 Hospital Course Summary Disclaimer: The visit summary below is not to be considered part of the above Progress Note. Hospital Course: Plan - 07/13/17 (Admission) Agree with admission to [facility] for further psychiatric evaluation and treatment. Hospitalist service consulted for medical management. Provide safe and supportive environment. Monitor closely as patient is a high fall risk. CBC and CMP in ED revealed mild macrocytic anemia (Hgb 12.7). Unknown if anemia is acute or chronic. Will asses folate and B12 levels. TSH pending. Will monitor labs periodically throughout admission. Blood pressure elevated on admission. Will continue home medications for a-fib and hypertension. Conflicting atenolol dosages noted with patient's home medication list and verified list from ED. Pharmacy contacted and verified atenolol 25mg daily is correct dose. Will continue home medications. CT head in ED revealed no acute intracranial abnormalities or hemorrhage. Continue chronic anticoagulation with Eliquis. Upon discharge, patient's care will be returned to his PCP, Dr. Carroll. Plan - 07/14/17 Patient remains irritable, unstable mood. Hypersexual with staff. Some of his initial labs are pending. Mild anemia- monitor. He is high risk for falls, and has a hx of SDH. Would consider changing anticoagulation to ASA given bleeding risk. Continue supportive care.
[2017-07-14] MEDS: QUETIAPINE 25 MG TABLET PO SCH ×2 (19:38→20:18)
[2017-07-14] MEDS: LORazepam 0.5 MG TABLET PO PRN (20:18)
[2017-07-15] MEDS: TAMSULOSIN 0.4 MG CAPSULE PO SCH (08:12)
[2017-07-15] MEDS: APIXABAN 5 MG TABLET PO SCH (08:12)
[2017-07-15] MEDS: ATENOLOL 25 MG TABLET PO SCH (08:12)
[2017-07-15] MEDS: CLOPIDOGREL 75 MG TABLET PO SCH (08:12)
[2017-07-15] MEDS: MEMANTINE 5 MG TABLET PO SCH (08:23)
--- NOTE | 2017-07-15 10:32 | Progress Note ---
Progress Note: B12 187; MMA to be drawn and Vit B12 ordered 1mg IM daily x 1 wk-will order additional supplementation on ongoing basis in near future based on MMA.
[2017-07-15] MEDS: QUETIAPINE 25 MG TABLET PO SCH (20:16)
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
[2017-07-15] MEDS: LORazepam INTENSOL 1mg/0.5ml ORAL LIQUID SL PRN (23:00)
[2017-07-16] MEDS: ATENOLOL 25 MG TABLET PO SCH (09:16)
[2017-07-16] MEDS: TAMSULOSIN 0.4 MG CAPSULE PO SCH (09:16)
[2017-07-16] MEDS: CLOPIDOGREL 75 MG TABLET PO SCH (09:16)
[2017-07-16] MEDS: APIXABAN 5 MG TABLET PO SCH (09:16)
[2017-07-16] MEDS: MEMANTINE 5 MG TABLET PO SCH (09:16)
[2017-07-16] MEDS: CYANOCOBALAMIN (B-12) 1,000mcg/ml INJECTION IM SCH (10:10)
--- NOTE | 2017-07-16 16:27 | Neuropsych Progress Note ---
[facility] Subjective Date: 07/16/17 - Sujective/Severity of Illness Medications: Apixaban (Eliquis) 5 mg PO DAILY [facility] Last Admin: 07/16/17 09:16 Dose: 5 mg Atenolol (Tenormin) 25 mg PO DAILY [facility] Last Admin: 07/16/17 09:16 Dose: 25 mg Carbidopa/Levodopa (Sinemet) 1 tab PO TID/E [facility] Clopidogrel Bisulfate (Plavix) 75 mg PO DAILY [facility] Last Admin: 07/16/17 09:16 Dose: 75 mg Cyanocobalamin (Vit. B-12) 1,000 mcg IM DAILY [facility] Stop: 07/23/17 08:59 Last Admin: 07/16/17 10:10 Dose: 1,000 mcg Lorazepam (Ativan) 0.5 mg PO Q6H PRN PRN Reason: Extreme agitation Last Admin: 07/14/17 20:18 Dose: 0.5 mg Lorazepam (Ativan Inj) 0.5 mg IM Q6H PRN PRN Reason: Extreme agitation Last Admin: 07/14/17 04:04 Dose: 0.5 mg Lorazepam (Ativan Intensol) 0.5 mg SL Q2H PRN Last Admin: 07/15/17 23:00 Dose: 0.5 mg Memantine (Namenda) 5 mg PO DAILY [facility] Last Admin: 07/16/17 09:16 Dose: 5 mg Quetiapine Fumarate (Seroquel) 12.5 mg PO HS [facility] Last Admin: 07/15/17 20:16 Dose: 12.5 mg Tamsulosin HCl (Flomax) 0.4 mg PO DAILY [facility] Last Admin: 07/16/17 09:16 Dose: 0.4 mg Subjective: Patient seen and chart reviewed. Case discussed with treatment team. On interview, patient is more relaxed but still confused. He says he is "always happy but this is the most stress he's been under." Patient denies any SI, HI or AVH. Nursing staff report patient can be impulsive and often asks about his family. He was agitated and aggressive overnight. Patient has been adherent with medications. Patient slept <3 hours overnight. VSS. Patient is eating well. PRN Ativan given last evening for agitation. Start Time: 10:40 Stop Time: 11:00 Mental Status Exam Vitals: Last Vital Signs Temp 97.5 F 07/16/17 16:00 Pulse 62 07/16/17 16:00 Resp 18 07/16/17 16:00 BP 105/58 07/16/17 16:00 Pulse Ox 95 07/16/17 16:00 Height: 1.65 m Weight: 60.7 kg - Mental Status Exam Muscle Strength/Tone: Normal Dressing: Casual Grooming: Fair Attitude: Tense Motor Activity: Retardation Eye Contact: Fair Speech: Slowed Volume: Soft Rhythm: Appropriate Rhythm Orientation: Disoriented to situation, Oriented to person Mood: Neutral (Tense, labile affect) Rate of Thoughts: Delayed Thought Organization: [place] Associations: [employer] Abstract Reasoning: Poor abstract reasoning Thought Content: Delusions Perception/Psychotic: Hx psychosis, not current Language: Naming Impaired Memory: Poor-immediate, Poor-recent Suicidal Ideation: Denies Homicidal Ideation: Denies Insight: Poor Judgement: Poor Impulse Control: Poor - Laboratory Result Diagrams: 07/13/17 11:53 07/13/17 11:53 Assessment and Plan (1) Major neurocognitive disorder Problem details: with behavioral disturbance Current visit: Yes Status: Acute (2) Parkinsons disease Current visit: Yes Status: Acute (3) Atrial fibrillation Current visit: Yes Status: Acute (4) Hypertension Current visit: Yes Status: Acute (5) Coronary artery disease Current visit: Yes Status: Acute Decrease Sinemet to 1mg PO TID as it could be contributing to anxiety, agitation , paranoia. Monitor response in regards to mood/affect but also movement. If patient receives PRN Ativan, monitor to ensure there is no paradoxical response as he did not sleep well after PRN last night. Hospital Course Summary Disclaimer: The visit summary below is not to be considered part of the above Progress Note. Hospital Course: Plan - 07/13/17 (Admission) Agree with admission to [facility] for further psychiatric evaluation and treatment. Hospitalist service consulted for medical management. Provide safe and supportive environment. Monitor closely as patient is a high fall risk. CBC and CMP in ED revealed mild macrocytic anemia (Hgb 12.7). Unknown if anemia is acute or chronic. Will asses folate and B12 levels. TSH pending. Will monitor labs periodically throughout admission. Blood pressure elevated on admission. Will continue home medications for a-fib and hypertension. Conflicting atenolol dosages noted with patient's home medication list and verified list from ED. Pharmacy contacted and verified atenolol 25mg daily is correct dose. Will continue home medications. CT head in ED revealed no acute intracranial abnormalities or hemorrhage. Continue chronic anticoagulation with Eliquis. Upon discharge, patient's care will be returned to his PCP, Dr. Carroll. Plan - 07/14/17 Patient remains irritable, unstable mood. Hypersexual with staff. Some of his initial labs are pending. Mild anemia- monitor. He is high risk for falls, and has a hx of SDH. Would consider changing anticoagulation to ASA given bleeding risk. Continue supportive care. 07/16/17 Psych: Decrease Sinemet to 1mg PO TID as it could be contributing to anxiety, agitation, paranoia. Monitor response in regards to mood/affect but also movement. If patient receives PRN Ativan, monitor to ensure there is no paradoxical response as he did not sleep well after PRN last night.
[2017-07-16] MEDS: QUETIAPINE 25 MG TABLET PO SCH (20:48)
[2017-07-17] MEDS: CLOPIDOGREL 75 MG TABLET PO SCH (08:10)
[2017-07-17] MEDS: CYANOCOBALAMIN (B-12) 1,000mcg/ml INJECTION IM SCH (08:10)
[2017-07-17] MEDS: MEMANTINE 5 MG TABLET PO SCH (08:11)
[2017-07-17] MEDS: ATENOLOL 25 MG TABLET PO SCH (08:11)
[2017-07-17] MEDS: TAMSULOSIN 0.4 MG CAPSULE PO SCH (08:11)
[2017-07-17] MEDS: APIXABAN 5 MG TABLET PO SCH (08:11)
--- NOTE | 2017-07-17 13:50 | Progress Note ---
- Date 07/17/17 Subjective: SUNDAR was seen today while resting in bed. He was observed pacing the halls earlier today without any difficulty. He reports that his mind is "slipping" and is upset because his family is mad at him and they haven't come to visit him. Nursing reported that he called his earlier today and continues to request the phone so he can call other various family members. He reportedly slept <3 hours last night and was given PRN Ativan for his increased anxiety. His appetite is stable but he states that his bowels are moving slow. He denies any physical complaints including no chest pain, shortness of breath, abdominal pain, nausea, vomiting or dysuria. Labs from 07/15/17 were relatively unremarkable with the exception of mild anemia with hemoglobin at 12.7. He is eager for discharge home. Objective Vital signs: Temperature 97.6 F 07/17/17 08:00 Pulse Rate 62 07/17/17 08:00 Respiratory Rate 18 07/17/17 08:00 Blood Pressure 147/90 H 07/17/17 08:00 Pulse Oximetry 93 07/17/17 08:00 Height/Weight/BMI: Height 5 ft 5 in Weight 133 lb 13.129 oz Body Mass Index 22.2 Comments: resting in bed; appears agitated and near tears on exam; requests phone to call his son. - Constitutional Present: no acute distress, thin, cooperative, agitated - Routine HEENT Exam Head: Present: normocephalic, atraumatic Eye: Present: PERRL. Absent: conjunctival icterus ENT: Present: mucous membranes moist - Routine Respiratory Exam Present: CTA bilaterally. Absent: rales, respiratory distress, rhonchi, stridor , wheezes, crackles - Routine Cardiovascular Exam Present: irregularly irregular - Routine Abdominal Exam Present: soft, normoactive bowel sounds, non distended, non tender - Routine Extremities Exam Present: non tender, full ROM, pulses intact - Routine Back/Spine/Pelvis Exam Back/Spine: Present: full ROM. Absent: vertebral tenderness - Routine Musculoskeletal Exam Musculoskeletal: Present: moving extremities well - Routine Skin Exam Present: dry, warm. Absent: jaundice Comments: afebrile - Routine Neurological Exam Present: alert, moving all extremities, normal speech. Absent: facial asymmetry - Routine Lymphatic Exam Lymphatic: Absent: lymphedema - Routine Psychiatric Exam Present: cooperative, agitated Comments: restless Results - Labs CBC & Chem 7: 07/13/17 11:53 07/13/17 11:53 Assessment and Plan (1) Major neurocognitive disorder Problem details: with behavioral disturbance Current visit: Yes Status: Acute Assessment and Plan: Assessment Dementia with behavioral disorder. Macrocytic anemia, unspecified. Parkinson's disease. Chronic a-fib. Chronic anticoagulation with Eliquis. BPH. Hypertension. CAD. Plan - 07/17/17 JW continues to be anxious with agitation and restlessness - mood is unstable. <3 hours of sleep last night and received PRN Ativan. Continue psychiatric care per Dr. Louis and team. Provide safe and supportive environment. Initial labs revealed mild anemia with Hgb 12.7. B12 low at 185. B12 IM initiated on 07/16/17 to be completed on 07/23 at which time oral B12 supplementation will be initiated. Folate stable. Monitor anemia periodically. No signs of bleeding. He is high risk for falls, and has a history of SDH. Continues on Plavix and Eliquis. Will recheck labs on 07/22 to monitor blood counts, electrolytes and renal function. Blood pressure variable. Continue to monitor closely. DVT Prophylaxis: Eliquis Resuscitation Status: Full Code - Time spent with patient Time with patient PN: 25 minutes - Physician Narrative Physician: Dary Silver MD Narrative: Date: 07/17/17 Time: 1346 Hospital Course Summary Disclaimer: The visit summary below is not to be considered part of the above Progress Note. Hospital Course: Plan - 07/13/17 (Admission) Agree with admission to [facility] for further psychiatric evaluation and treatment. Hospitalist service consulted for medical management. Provide safe and supportive environment. Monitor closely as patient is a high fall risk. CBC and CMP in ED revealed mild macrocytic anemia (Hgb 12.7). Unknown if anemia is acute or chronic. Will asses folate and B12 levels. TSH pending. Will monitor labs periodically throughout admission. Blood pressure elevated on admission. Will continue home medications for a-fib and hypertension. Conflicting atenolol dosages noted with patient's home medication list and verified list from ED. Pharmacy contacted and verified atenolol 25mg daily is correct dose. Will continue home medications. CT head in ED revealed no acute intracranial abnormalities or hemorrhage. Continue chronic anticoagulation with Eliquis. Upon discharge, patient's care will be returned to his PCP, Dr. Carroll. Plan - 07/14/17 Patient remains irritable, unstable mood. Hypersexual with staff. Some of his initial labs are pending. Mild anemia- monitor. He is high risk for falls, and has a hx of SDH. Would consider changing anticoagulation to ASA given bleeding risk. Continue supportive care. 07/16/17 Psych: Decrease Sinemet to 1mg PO TID as it could be contributing to anxiety, agitation, paranoia. Monitor response in regards to mood/affect but also movement. If patient receives PRN Ativan, monitor to ensure there is no paradoxical response as he did not sleep well after PRN last night. Plan - 07/17/17 JW continues to be anxious with agitation and restlessness - mood is unstable. <3 hours of sleep last night and received PRN Ativan. Continue psychiatric care per Dr. Louis and team. Provide safe and supportive environment. Initial labs revealed mild anemia with Hgb 12.7. B12 low at 185. B12 IM initiated on 07/16/17 to be completed on 07/23 at which time oral B12 supplementation will be initiated. Folate stable. Monitor anemia periodically. No signs of bleeding. He is high risk for falls, and has a history of SDH. Continues on Plavix and Eliquis. Will recheck labs on 07/22 to monitor blood counts, electrolytes and renal function. Blood pressure variable. Continue to monitor closely.
[2017-07-17] MEDS ORDERED: SENNA + DOCUSATE TABLET PO PRN (13:56)
--- NOTE | 2017-07-17 16:24 | Neuropsych Progress Note ---
[facility] Subjective Date: 07/18/17 - Sujective/Severity of Illness Medications: Apixaban (Eliquis) 5 mg PO DAILY [facility] Last Admin: 07/17/17 08:11 Dose: 5 mg Atenolol (Tenormin) 25 mg PO DAILY [facility] Last Admin: 07/17/17 08:11 Dose: 25 mg Carbidopa/Levodopa (Sinemet) 1 tab PO TID/E [facility] Last Admin: 07/17/17 13:12 Dose: 1 tab Clopidogrel Bisulfate (Plavix) 75 mg PO DAILY [facility] Last Admin: 07/17/17 08:10 Dose: 75 mg Cyanocobalamin (Vit. B-12) 1,000 mcg IM DAILY [facility] Stop: 07/23/17 08:59 Last Admin: 07/17/17 08:10 Dose: 1,000 mcg Cyanocobalamin (Vit. B-12) 1,000 mcg PO DAILY [facility] Lorazepam (Ativan) 0.5 mg PO Q6H PRN PRN Reason: Extreme agitation Last Admin: 07/14/17 20:18 Dose: 0.5 mg Lorazepam (Ativan Inj) 0.5 mg IM Q6H PRN PRN Reason: Extreme agitation Last Admin: 07/14/17 04:04 Dose: 0.5 mg Lorazepam (Ativan Intensol) 0.5 mg SL Q2H PRN Last Admin: 07/15/17 23:00 Dose: 0.5 mg Magnesium Hydroxide (Mom) 30 ml PO DAILY PRN PRN Reason: Constipation Memantine (Namenda) 5 mg PO DAILY [facility] Last Admin: 07/17/17 08:11 Dose: 5 mg Polyethylene Glycol (Miralax) 17 gm PO DAILY [facility] Quetiapine Fumarate (Seroquel) 12.5 mg PO HS [facility] Last Admin: 07/16/17 20:48 Dose: 12.5 mg Senna/Docusate Sodium (Senna Plus Tablet) 1 tab PO DAILY [facility] Senna/Docusate Sodium (Senna Plus Tablet) 1 tab PO BID PRN PRN Reason: Constipation Tamsulosin HCl (Flomax) 0.4 mg PO DAILY [facility] Last Admin: 07/17/17 08:11 Dose: 0.4 mg Subjective: Patient seen and chart reviewed. Case discussed with treatment team. On interview, patient reports he is in a good mood but he is eager to discharge. His son is at bedside and inquires about discharge as well, but patient is calm when I state I would like to observe him today. Monitored for worsening Parkinson's symptoms and have not seen significant change in comfort or function since decreasing his medications. Patient denies any SI, HI or AVH. Nursing staff report patient has anxiety at times, and was given PO PRN Ativan x1 last night because of this. Patient has been adherent with medications. Patient slept well overnight but had to use the restroom frequently. VSS. Patient is eating well. Start Time: 12:40 Stop Time: 13:00 Mental Status Exam Vitals: Last Vital Signs Temp 98.4 F 07/17/17 15:48 Pulse 61 07/17/17 15:48 Resp 14 07/17/17 15:48 BP 150/70 H 07/17/17 15:48 Pulse Ox 97 07/17/17 15:48 Height: 1.65 m Weight: 60.7 kg - Mental Status Exam Muscle Strength/Tone: Normal Dressing: Casual Grooming: Fair Attitude: Tense Motor Activity: Retardation Eye Contact: Fair Speech: Slowed Volume: Soft Rhythm: Appropriate Rhythm Orientation: Disoriented to situation, Oriented to person Mood: Euthymic Affect: Relaxed Rate of Thoughts: Delayed Thought Organization: [place] Associations: [employer] Abstract Reasoning: Poor abstract reasoning Thought Content: Delusions (improving) Perception/Psychotic: Hx psychosis, not current Language: Naming Impaired Memory: Poor-immediate, Poor-recent Suicidal Ideation: Denies Homicidal Ideation: Denies Insight: Poor Judgement: Poor Impulse Control: Poor - Laboratory Result Diagrams: 07/13/17 11:53 07/13/17 11:53 Assessment and Plan (1) Major neurocognitive disorder Problem details: with behavioral disturbance Current visit: Yes Status: Acute (2) Parkinsons disease Current visit: Yes Status: Acute (3) Atrial fibrillation Current visit: Yes Status: Acute (4) Hypertension Current visit: Yes Status: Acute (5) Coronary artery disease Current visit: Yes Status: Acute Continue current care, attempting to find best balance for patient between treating Parkinson's and minimizing psychosis. Will revisit options after discharge with family after next staffing. Hospital Course Summary Disclaimer: The visit summary below is not to be considered part of the above Progress Note. Hospital Course: Plan - 07/13/17 (Admission) Agree with admission to [facility] for further psychiatric evaluation and treatment. Hospitalist service consulted for medical management. Provide safe and supportive environment. Monitor closely as patient is a high fall risk. CBC and CMP in ED revealed mild macrocytic anemia (Hgb 12.7). Unknown if anemia is acute or chronic. Will asses folate and B12 levels. TSH pending. Will monitor labs periodically throughout admission. Blood pressure elevated on admission. Will continue home medications for a-fib and hypertension. Conflicting atenolol dosages noted with patient's home medication list and verified list from ED. Pharmacy contacted and verified atenolol 25mg daily is correct dose. Will continue home medications. CT head in ED revealed no acute intracranial abnormalities or hemorrhage. Continue chronic anticoagulation with Eliquis. Upon discharge, patient's care will be returned to his PCP, Dr. Carroll. Plan - 07/14/17 Patient remains irritable, unstable mood. Hypersexual with staff. Some of his initial labs are pending. Mild anemia- monitor. He is high risk for falls, and has a hx of SDH. Would consider changing anticoagulation to ASA given bleeding risk. Continue supportive care. 07/16/17 Psych: Decrease Sinemet to 1mg PO TID as it could be contributing to anxiety, agitation, paranoia. Monitor response in regards to mood/affect but also movement. If patient receives PRN Ativan, monitor to ensure there is no paradoxical response as he did not sleep well after PRN last night. Plan - 07/17/17 JW continues to be anxious with agitation and restlessness - mood is unstable. <3 hours of sleep last night and received PRN Ativan. Continue psychiatric care per Dr. Louis and team. Provide safe and supportive environment. Initial labs revealed mild anemia with Hgb 12.7. B12 low at 185. B12 IM initiated on 07/16/17 to be completed on 07/23 at which time oral B12 supplementation will be initiated. Folate stable. Monitor anemia periodically. No signs of bleeding. He is high risk for falls, and has a history of SDH. Continues on Plavix and Eliquis. Will recheck labs on 07/22 to monitor blood counts, electrolytes and renal function. Blood pressure variable. Continue to monitor closely. 07/18/17 Psych: Continue current care, attempting to find best balance for patient between treating Parkinson's and minimizing psychosis. Will revisit options after discharge with family after next staffing.
[2017-07-17] MEDS: SENNA + DOCUSATE TABLET PO SCH (17:49)
[2017-07-17] MEDS: QUETIAPINE 25 MG TABLET PO SCH (19:14)
[2017-07-17] MEDS: LORazepam 0.5 MG TABLET PO PRN (20:25)
[2017-07-18] MEDS: QUETIAPINE 25 MG TABLET PO SCH ×2 (03:52→20:36)
[2017-07-18] MEDS: TAMSULOSIN 0.4 MG CAPSULE PO SCH (08:47)
[2017-07-18] MEDS: CLOPIDOGREL 75 MG TABLET PO SCH (08:47)
[2017-07-18] MEDS: ATENOLOL 25 MG TABLET PO SCH (08:47)
[2017-07-18] MEDS: APIXABAN 5 MG TABLET PO SCH (08:47)
[2017-07-18] MEDS: CYANOCOBALAMIN (B-12) 1,000mcg/ml INJECTION IM SCH (08:47)
[2017-07-18] MEDS: SENNA + DOCUSATE TABLET PO SCH (08:54)
[2017-07-18] MEDS: POLYETHYL GLYCOL 3350 17gm PACKET PO SCH (08:54)
[2017-07-18] MEDS: MEMANTINE 5 MG TABLET PO SCH (08:54)
[2017-07-18] MEDS: AMLODIPINE 5 MG TABLET PO SCH (12:59)
[2017-07-19] MEDS: TAMSULOSIN 0.4 MG CAPSULE PO SCH (08:36)
[2017-07-19] MEDS: CLOPIDOGREL 75 MG TABLET PO SCH (08:36)
[2017-07-19] MEDS: MEMANTINE 5 MG TABLET PO SCH (08:36)
[2017-07-19] MEDS: APIXABAN 5 MG TABLET PO SCH (08:36)
[2017-07-19] MEDS: CYANOCOBALAMIN (B-12) 1,000mcg/ml INJECTION IM SCH (08:36)
[2017-07-19] MEDS: SENNA + DOCUSATE TABLET PO SCH (08:36)
[2017-07-19] MEDS: AMLODIPINE 5 MG TABLET PO SCH (08:36)
[2017-07-19] MEDS: ATENOLOL 25 MG TABLET PO SCH (08:36)
[2017-07-19] MEDS: POLYETHYL GLYCOL 3350 17gm PACKET PO SCH (08:37)
--- NOTE | 2017-07-19 16:06 | Neuropsych Progress Note ---
[facility] Subjective Date: 07/19/17 - Sujective/Severity of Illness Medications: Amlodipine Besylate (Norvasc) 5 mg PO DAILY [facility] Last Admin: 07/19/17 08:36 Dose: 5 mg Apixaban (Eliquis) 5 mg PO DAILY [facility] Last Admin: 07/19/17 08:36 Dose: 5 mg Atenolol (Tenormin) 25 mg PO DAILY [facility] Last Admin: 07/19/17 08:36 Dose: 25 mg Carbidopa/Levodopa (Sinemet) 1 tab PO TID/E [facility] Last Admin: 07/19/17 14:15 Dose: 1 tab Clopidogrel Bisulfate (Plavix) 75 mg PO DAILY [facility] Last Admin: 07/19/17 08:36 Dose: 75 mg Cyanocobalamin (Vit. B-12) 1,000 mcg IM DAILY [facility] Stop: 07/23/17 08:59 Last Admin: 07/19/17 08:36 Dose: 1,000 mcg Cyanocobalamin (Vit. B-12) 1,000 mcg PO DAILY [facility] Lorazepam (Ativan) 0.5 mg PO Q6H PRN PRN Reason: Extreme agitation Last Admin: 07/17/17 20:25 Dose: 0.5 mg Lorazepam (Ativan Inj) 0.5 mg IM Q6H PRN PRN Reason: Extreme agitation Last Admin: 07/14/17 04:04 Dose: 0.5 mg Lorazepam (Ativan Intensol) 0.5 mg SL Q2H PRN Last Admin: 07/15/17 23:00 Dose: 0.5 mg Magnesium Hydroxide (Mom) 30 ml PO DAILY PRN PRN Reason: Constipation Memantine (Namenda) 5 mg PO DAILY [facility] Last Admin: 07/19/17 08:36 Dose: 5 mg Polyethylene Glycol (Miralax) 17 gm PO DAILY [facility] Last Admin: 07/19/17 08:37 Dose: 17 gm Quetiapine Fumarate (Seroquel) 12.5 mg PO HS [facility] Last Admin: 07/18/17 20:36 Dose: 12.5 mg Senna/Docusate Sodium (Senna Plus Tablet) 1 tab PO DAILY [facility] Last Admin: 07/19/17 08:36 Dose: 1 tab Senna/Docusate Sodium (Senna Plus Tablet) 1 tab PO BID PRN PRN Reason: Constipation Tamsulosin HCl (Flomax) 0.4 mg PO DAILY [facility] Last Admin: 07/19/17 08:36 Dose: 0.4 mg Subjective: Patient seen and chart reviewed. Case discussed with treatment team. On interview, patient reports he is in a good mood and feels well physically. He reportedly did push-ups for the physical therapist. Family is present and spoke with . She reports increased anxiety in AM (likely after Parkinson's meds) but sees a significant improvement thus far. Discussed need for placement and she is in agreement for SNU vs. LTC. Monitored for worsening Parkinson's symptoms and have not seen significant change in comfort or function since decreasing his medications. Patient denies any SI, HI or AVH. Nursing staff report patient has been much less anxious, more redirectable since med changes. No psychotropic PRNs required in the past 24 hours. Patient has been adherent with medications. Patient slept well overnight but has to use the restroom frequently. VSS. Patient is eating well. Start Time: 12:40 Stop Time: 13:00 Mental Status Exam Vitals: Last Vital Signs Temp 97.6 F 07/19/17 08:00 Pulse 60 07/19/17 08:00 Resp 16 07/19/17 08:00 BP 147/75 H 07/19/17 08:00 Pulse Ox 96 07/19/17 08:00 Height: 1.65 m Weight: 60.7 kg - Mental Status Exam Muscle Strength/Tone: Rigid (not worsened since admission) Dressing: Casual Grooming: Fair Attitude: Cooperative Motor Activity: Retardation Eye Contact: Fair Speech: Slowed Volume: Soft Rhythm: Appropriate Rhythm Orientation: Disoriented to situation, Oriented to person Mood: Euthymic Affect: Anxious (decreasing though often asks about discharge) Rate of Thoughts: Delayed Thought Organization: [place] Associations: Flight [employer] Abstract Reasoning: Poor abstract reasoning Thought Content: Other (focused on d/c; otherwise no abnormal thought content elicited during interview) Perception/Psychotic: Hx psychosis, not current Language: Naming Impaired Memory: Poor-immediate, Poor-recent Suicidal Ideation: Denies Homicidal Ideation: Denies Insight: Poor Judgement: Poor Impulse Control: Fair - Laboratory Result Diagrams: 07/13/17 11:53 07/13/17 11:53 Laboratory Results - last 24 hr 07/19/17 03:13 Ur Collection Type Urine, void-cc/notcc Urine Color Yellow Urine Clarity Clear Urine pH 6.5 Ur Specific [place] <=1.005 L Urine Protein Negative Urine Glucose (UA) Negative Urine Ketones Negative Urine Occult Blood Negative Urine Nitrate Negative Urine Bilirubin Negative Urine Urobilinogen 0.2 Ur Leukocyte Esterase Negative Urinalysis Comment Microscopic not ind. Assessment and Plan (1) Major neurocognitive disorder Problem details: with behavioral disturbance Current visit: Yes Status: Acute (2) Parkinsons disease Current visit: Yes Status: Acute (3) Atrial fibrillation Current visit: Yes Status: Acute (4) Hypertension Current visit: Yes Status: Acute (5) Coronary artery disease Current visit: Yes Status: Acute Again, decreased Sinemet to 12.5mg PO TID - will monitor mood/behavior and function d/t movement disorder in attempt to find best balance/timing of Parkinson's meds. Hospital Course Summary Disclaimer: The visit summary below is not to be considered part of the above Progress Note. Hospital Course: Plan - 07/13/17 (Admission) Agree with admission to [facility] for further psychiatric evaluation and treatment. Hospitalist service consulted for medical management. Provide safe and supportive environment. Monitor closely as patient is a high fall risk. CBC and CMP in ED revealed mild macrocytic anemia (Hgb 12.7). Unknown if anemia is acute or chronic. Will asses folate and B12 levels. TSH pending. Will monitor labs periodically throughout admission. Blood pressure elevated on admission. Will continue home medications for a-fib and hypertension. Conflicting atenolol dosages noted with patient's home medication list and verified list from ED. Pharmacy contacted and verified atenolol 25mg daily is correct dose. Will continue home medications. CT head in ED revealed no acute intracranial abnormalities or hemorrhage. Continue chronic anticoagulation with Eliquis. Upon discharge, patient's care will be returned to his PCP, Dr. Carroll. Plan - 07/14/17 Patient remains irritable, unstable mood. Hypersexual with staff. Some of his initial labs are pending. Mild anemia- monitor. He is high risk for falls, and has a hx of SDH. Would consider changing anticoagulation to ASA given bleeding risk. Continue supportive care. 07/16/17 Psych: Decrease Sinemet to 1mg PO TID as it could be contributing to anxiety, agitation, paranoia. Monitor response in regards to mood/affect but also movement. If patient receives PRN Ativan, monitor to ensure there is no paradoxical response as he did not sleep well after PRN last night. Plan - 07/17/17 JW continues to be anxious with agitation and restlessness - mood is unstable. <3 hours of sleep last night and received PRN Ativan. Continue psychiatric care per Dr. Louis and team. Provide safe and supportive environment. Initial labs revealed mild anemia with Hgb 12.7. B12 low at 185. B12 IM initiated on 07/16/17 to be completed on 07/23 at which time oral B12 supplementation will be initiated. Folate stable. Monitor anemia periodically. No signs of bleeding. He is high risk for falls, and has a history of SDH. Continues on Plavix and Eliquis. Will recheck labs on 07/22 to monitor blood counts, electrolytes and renal function. Blood pressure variable. Continue to monitor closely. 07/18/17 Psych: Continue current care, attempting to find best balance for patient between treating Parkinson's and minimizing psychosis. Will revisit options after discharge with family after next staffing. 07/19/17 Psych: Again, decreased Sinemet to 12.5mg PO TID - will monitor mood/ behavior and function d/t movement disorder in attempt to find best balance/ timing of Parkinson's meds.
[2017-07-19] MEDS: QUETIAPINE 25 MG TABLET PO SCH (20:34)
[2017-07-20] MEDS: APIXABAN 5 MG TABLET PO SCH (08:09)
[2017-07-20] MEDS: AMLODIPINE 5 MG TABLET PO SCH (08:09)
[2017-07-20] MEDS: MEMANTINE 5 MG TABLET PO SCH (08:10)
[2017-07-20] MEDS: CYANOCOBALAMIN (B-12) 1,000mcg/ml INJECTION IM SCH (08:10)
[2017-07-20] MEDS: ATENOLOL 25 MG TABLET PO SCH (08:10)
[2017-07-20] MEDS: CLOPIDOGREL 75 MG TABLET PO SCH (08:10)
[2017-07-20] MEDS: POLYETHYL GLYCOL 3350 17gm PACKET PO SCH (08:11)
[2017-07-20] MEDS: TAMSULOSIN 0.4 MG CAPSULE PO SCH (08:11)
[2017-07-20] MEDS: SENNA + DOCUSATE TABLET PO SCH (08:11)
--- NOTE | 2017-07-20 10:26 | Neuropsych Progress Note ---
[facility] Subjective Date: 07/20/17 - Sujective/Severity of Illness Medications: Amlodipine Besylate (Norvasc) 5 mg PO DAILY [facility] Last Admin: 07/20/17 08:09 Dose: 5 mg Apixaban (Eliquis) 5 mg PO DAILY [facility] Last Admin: 07/20/17 08:09 Dose: 5 mg Atenolol (Tenormin) 25 mg PO DAILY [facility] Last Admin: 07/20/17 08:10 Dose: 25 mg Carbidopa/Levodopa (Sinemet) 0.5 tab PO TID/E [facility] Last Admin: 07/20/17 06:17 Dose: 0.5 tab Clopidogrel Bisulfate (Plavix) 75 mg PO DAILY [facility] Last Admin: 07/20/17 08:10 Dose: 75 mg Cyanocobalamin (Vit. B-12) 1,000 mcg IM DAILY [facility] Stop: 07/23/17 08:59 Last Admin: 07/20/17 08:10 Dose: 1,000 mcg Cyanocobalamin (Vit. B-12) 1,000 mcg PO DAILY [facility] Lorazepam (Ativan) 0.5 mg PO Q6H PRN PRN Reason: Extreme agitation Last Admin: 07/17/17 20:25 Dose: 0.5 mg Lorazepam (Ativan Inj) 0.5 mg IM Q6H PRN PRN Reason: Extreme agitation Last Admin: 07/14/17 04:04 Dose: 0.5 mg Lorazepam (Ativan Intensol) 0.5 mg SL Q2H PRN Last Admin: 07/15/17 23:00 Dose: 0.5 mg Magnesium Hydroxide (Mom) 30 ml PO DAILY PRN PRN Reason: Constipation Memantine (Namenda) 5 mg PO DAILY [facility] Last Admin: 07/20/17 08:10 Dose: 5 mg Polyethylene Glycol (Miralax) 17 gm PO DAILY [facility] Last Admin: 07/20/17 08:11 Dose: 17 gm Quetiapine Fumarate (Seroquel) 12.5 mg PO HS [facility] Last Admin: 07/19/17 20:34 Dose: 12.5 mg Senna/Docusate Sodium (Senna Plus Tablet) 1 tab PO DAILY [facility] Last Admin: 07/20/17 08:11 Dose: 1 tab Senna/Docusate Sodium (Senna Plus Tablet) 1 tab PO BID PRN PRN Reason: Constipation Tamsulosin HCl (Flomax) 0.4 mg PO DAILY [facility] Last Admin: 07/20/17 08:11 Dose: 0.4 mg Subjective: Patient seen and chart reviewed. Nursing reports pt is doing well. Sleeping well and having a good appetite. No behaviors noted. On face to face the pt states he is doing well. He is pleasant but confused. Reports his mood is stable. Denies pain. Tolerating meds Start Time: 09:15 Stop Time: 09:30 Mental Status Exam Vitals: Last Vital Signs Temp 98.0 F 07/20/17 08:00 Pulse 62 07/20/17 08:00 Resp 16 07/20/17 08:00 BP 156/68 H 07/20/17 08:00 Pulse Ox 97 07/20/17 08:00 Height: 1.65 m Weight: 60.7 kg - Mental Status Exam Muscle Strength/Tone: Rigid (not worsened since admission) Dressing: Casual Grooming: Fair Attitude: Cooperative Motor Activity: Retardation Eye Contact: Fair Speech: Slowed Volume: Soft Rhythm: Appropriate Rhythm Orientation: Disoriented to situation, Oriented to person Mood: Euthymic Rate of Thoughts: Delayed Thought Organization: [place] Associations: Flight [employer] Abstract Reasoning: Poor abstract reasoning Thought Content: Other (focused on d/c; otherwise no abnormal thought content elicited during interview) Perception/Psychotic: Hx psychosis, not current Language: Naming Impaired Memory: Poor-immediate, Poor-recent Suicidal Ideation: Denies Homicidal Ideation: Denies Insight: Poor Judgement: Poor Impulse Control: Fair - Laboratory Result Diagrams: 07/13/17 11:53 07/13/17 11:53 Assessment and Plan (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 Hospital Course: Plan - 07/13/17 (Admission) Agree with admission to [facility] for further psychiatric evaluation and treatment. Hospitalist service consulted for medical management. Provide safe and supportive environment. Monitor closely as patient is a high fall risk. CBC and CMP in ED revealed mild macrocytic anemia (Hgb 12.7). Unknown if anemia is acute or chronic. Will asses folate and B12 levels. TSH pending. Will monitor labs periodically throughout admission. Blood pressure elevated on admission. Will continue home medications for a-fib and hypertension. Conflicting atenolol dosages noted with patient's home medication list and verified list from ED. Pharmacy contacted and verified atenolol 25mg daily is correct dose. Will continue home medications. CT head in ED revealed no acute intracranial abnormalities or hemorrhage. Continue chronic anticoagulation with Eliquis. Upon discharge, patient's care will be returned to his PCP, Dr. Carroll. Plan - 07/14/17 Patient remains irritable, unstable mood. Hypersexual with staff. Some of his initial labs are pending. Mild anemia- monitor. He is high risk for falls, and has a hx of SDH. Would consider changing anticoagulation to ASA given bleeding risk. Continue supportive care. 07/16/17 Psych: Decrease Sinemet to 1mg PO TID as it could be contributing to anxiety, agitation, paranoia. Monitor response in regards to mood/affect but also movement. If patient receives PRN Ativan, monitor to ensure there is no paradoxical response as he did not sleep well after PRN last night. Plan - 07/17/17 JW continues to be anxious with agitation and restlessness - mood is unstable. <3 hours of sleep last night and received PRN Ativan. Continue psychiatric care per Dr. Louis and team. Provide safe and supportive environment. Initial labs revealed mild anemia with Hgb 12.7. B12 low at 185. B12 IM initiated on 07/16/17 to be completed on 07/23 at which time oral B12 supplementation will be initiated. Folate stable. Monitor anemia periodically. No signs of bleeding. He is high risk for falls, and has a history of SDH. Continues on Plavix and Eliquis. Will recheck labs on 07/22 to monitor blood counts, electrolytes and renal function. Blood pressure variable. Continue to monitor closely. 07/18/17 Psych: Continue current care, attempting to find best balance for patient between treating Parkinson's and minimizing psychosis. Will revisit options after discharge with family after next staffing. 07/19/17 Psych: Again, decreased Sinemet to 12.5mg PO TID - will monitor mood/ behavior and function d/t movement disorder in attempt to find best balance/ timing of Parkinson's meds. 07/20/2017 Pt doing well. Tolerating decrease in Sinemet. Will continue to monitor for psychosis and increase in Parkinsons Symptoms
[2017-07-20] MEDS: QUETIAPINE 25 MG TABLET PO SCH (20:12)
[2017-07-21] MEDS: TAMSULOSIN 0.4 MG CAPSULE PO SCH (08:27)
[2017-07-21] MEDS: MEMANTINE 5 MG TABLET PO SCH (08:27)
[2017-07-21] MEDS: AMLODIPINE 5 MG TABLET PO SCH (08:27)
[2017-07-21] MEDS: APIXABAN 5 MG TABLET PO SCH (08:27)
[2017-07-21] MEDS: SENNA + DOCUSATE TABLET PO SCH (08:27)
[2017-07-21] MEDS: CYANOCOBALAMIN (B-12) 1,000mcg/ml INJECTION IM SCH (08:28)
[2017-07-21] MEDS: CLOPIDOGREL 75 MG TABLET PO SCH (08:28)
[2017-07-21] MEDS: ATENOLOL 25 MG TABLET PO SCH (08:28)
[2017-07-21] MEDS: POLYETHYL GLYCOL 3350 17gm PACKET PO SCH (08:28)
--- NOTE | 2017-07-21 11:48 | Neuropsych Progress Note ---
[facility] Subjective Date: 07/21/17 - Sujective/Severity of Illness Medications: Amlodipine Besylate (Norvasc) 5 mg PO DAILY [facility] Last Admin: 07/21/17 08:27 Dose: 5 mg Apixaban (Eliquis) 5 mg PO DAILY [facility] Last Admin: 07/21/17 08:27 Dose: 5 mg Atenolol (Tenormin) 25 mg PO DAILY [facility] Last Admin: 07/21/17 08:28 Dose: 25 mg Carbidopa/Levodopa (Sinemet) 0.5 tab PO TID/E [facility] Last Admin: 07/21/17 06:18 Dose: 0.5 tab Clopidogrel Bisulfate (Plavix) 75 mg PO DAILY [facility] Last Admin: 07/21/17 08:28 Dose: 75 mg Cyanocobalamin (Vit. B-12) 1,000 mcg IM DAILY [facility] Stop: 07/23/17 08:59 Last Admin: 07/21/17 08:28 Dose: 1,000 mcg Cyanocobalamin (Vit. B-12) 1,000 mcg PO DAILY [facility] Lorazepam (Ativan) 0.5 mg PO Q6H PRN PRN Reason: Extreme agitation Last Admin: 07/17/17 20:25 Dose: 0.5 mg Lorazepam (Ativan Inj) 0.5 mg IM Q6H PRN PRN Reason: Extreme agitation Last Admin: 07/14/17 04:04 Dose: 0.5 mg Lorazepam (Ativan Intensol) 0.5 mg SL Q2H PRN Last Admin: 07/15/17 23:00 Dose: 0.5 mg Magnesium Hydroxide (Mom) 30 ml PO DAILY PRN PRN Reason: Constipation Memantine (Namenda) 5 mg PO DAILY [facility] Last Admin: 07/21/17 08:27 Dose: 5 mg Polyethylene Glycol (Miralax) 17 gm PO DAILY [facility] Last Admin: 07/21/17 08:28 Dose: 17 gm Quetiapine Fumarate (Seroquel) 12.5 mg PO HS [facility] Last Admin: 07/20/17 20:12 Dose: 12.5 mg Senna/Docusate Sodium (Senna Plus Tablet) 1 tab PO DAILY [facility] Last Admin: 07/21/17 08:27 Dose: 1 tab Senna/Docusate Sodium (Senna Plus Tablet) 1 tab PO BID PRN PRN Reason: Constipation Last Admin: 07/20/17 13:32 Dose: 1 tab Tamsulosin HCl (Flomax) 0.4 mg PO DAILY [facility] Last Admin: 07/21/17 08:27 Dose: 0.4 mg Subjective: Patient seen and chart reviewed. Nursing reports pt is doing well. Slept 5.5 hours interrupted last night and has a good appetite. Nursing reports last night the pt was paranoid that the staff was trying to harm him but it was not to distressing to the pt. On face to face the pt is more alert today. He has some insight that his short term memory is poor. He did talk about some people wanting to harm him last night but again was not distressed by it. He denies any pain. Tolerating meds Start Time: 11:00 Stop Time: 11:15 Mental Status Exam Vitals: Last Vital Signs Temp 97.8 F 07/21/17 08:00 Pulse 75 07/21/17 08:00 Resp 18 07/21/17 08:00 BP 171/77 H 07/21/17 08:00 Pulse Ox 94 07/21/17 08:00 Height: 1.65 m Weight: 61 kg - Mental Status Exam Muscle Strength/Tone: Rigid (not worsened since admission) Dressing: Casual Grooming: Fair Attitude: Cooperative Motor Activity: Retardation Eye Contact: Fair Speech: Slowed Volume: Soft Rhythm: Appropriate Rhythm Orientation: Disoriented to situation, Oriented to person Mood: Euthymic Rate of Thoughts: Delayed Thought Organization: [place] Associations: [employer] Abstract Reasoning: Poor abstract reasoning Thought Content: Other (focused on d/c; otherwise no abnormal thought content elicited during interview) Perception/Psychotic: Hx psychosis, not current Language: Naming Impaired Memory: Poor-immediate, Poor-recent Suicidal Ideation: Denies Homicidal Ideation: Denies Insight: Poor Judgement: Poor Impulse Control: Fair - Laboratory Result Diagrams: 07/13/17 11:53 07/13/17 11:53 Assessment and Plan (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 Hospital Course: Plan - 07/13/17 (Admission) Agree with admission to [facility] for further psychiatric evaluation and treatment. Hospitalist service consulted for medical management. Provide safe and supportive environment. Monitor closely as patient is a high fall risk. CBC and CMP in ED revealed mild macrocytic anemia (Hgb 12.7). Unknown if anemia is acute or chronic. Will asses folate and B12 levels. TSH pending. Will monitor labs periodically throughout admission. Blood pressure elevated on admission. Will continue home medications for a-fib and hypertension. Conflicting atenolol dosages noted with patient's home medication list and verified list from ED. Pharmacy contacted and verified atenolol 25mg daily is correct dose. Will continue home medications. CT head in ED revealed no acute intracranial abnormalities or hemorrhage. Continue chronic anticoagulation with Eliquis. Upon discharge, patient's care will be returned to his PCP, Dr. Carroll. Plan - 07/14/17 Patient remains irritable, unstable mood. Hypersexual with staff. Some of his initial labs are pending. Mild anemia- monitor. He is high risk for falls, and has a hx of SDH. Would consider changing anticoagulation to ASA given bleeding risk. Continue supportive care. 07/16/17 Psych: Decrease Sinemet to 1mg PO TID as it could be contributing to anxiety, agitation, paranoia. Monitor response in regards to mood/affect but also movement. If patient receives PRN Ativan, monitor to ensure there is no paradoxical response as he did not sleep well after PRN last night. Plan - 07/17/17 JW continues to be anxious with agitation and restlessness - mood is unstable. <3 hours of sleep last night and received PRN Ativan. Continue psychiatric care per Dr. Louis and team. Provide safe and supportive environment. Initial labs revealed mild anemia with Hgb 12.7. B12 low at 185. B12 IM initiated on 07/16/17 to be completed on 07/23 at which time oral B12 supplementation will be initiated. Folate stable. Monitor anemia periodically. No signs of bleeding. He is high risk for falls, and has a history of SDH. Continues on Plavix and Eliquis. Will recheck labs on 07/22 to monitor blood counts, electrolytes and renal function. Blood pressure variable. Continue to monitor closely. 07/18/17 Psych: Continue current care, attempting to find best balance for patient between treating Parkinson's and minimizing psychosis. Will revisit options after discharge with family after next staffing. 07/19/17 Psych: Again, decreased Sinemet to 12.5mg PO TID - will monitor mood/ behavior and function d/t movement disorder in attempt to find best balance/ timing of Parkinson's meds. 07/20/2017 Pt doing well. Tolerating decrease in Sinemet. Will continue to monitor for psychosis and increase in Parkinsons Symptoms 07/21/2017 Pt a little clearer today. Still has some paranoia at times but appears less bothered by it
[2017-07-21] MEDS: QUETIAPINE 25 MG TABLET PO SCH ×2 (18:34→20:22)
[2017-07-21] MEDS: LORazepam 0.5 MG TABLET PO PRN (18:34)
[2017-07-22] MEDS: APIXABAN 5 MG TABLET PO SCH (08:39)
[2017-07-22] MEDS: AMLODIPINE 5 MG TABLET PO SCH (08:39)
[2017-07-22] MEDS: CYANOCOBALAMIN (B-12) 1,000mcg/ml INJECTION IM SCH (08:40)
[2017-07-22] MEDS: ATENOLOL 25 MG TABLET PO SCH (08:40)
[2017-07-22] MEDS: CLOPIDOGREL 75 MG TABLET PO SCH (08:40)
[2017-07-22] MEDS: SENNA + DOCUSATE TABLET PO SCH (08:40)
[2017-07-22] MEDS: TAMSULOSIN 0.4 MG CAPSULE PO SCH (08:40)
[2017-07-22] MEDS: MEMANTINE 5 MG TABLET PO SCH (08:40)
[2017-07-22] MEDS: POLYETHYL GLYCOL 3350 17gm PACKET PO SCH ×2 (08:40→11:43)
--- NOTE | 2017-07-22 11:57 | Progress Note ---
- Date 07/22/17 Subjective: SUNDAR was seen during lunch. He was very talkative, and he stated that he hopes to Go home soon. He states that he hasn't been outside for 3 weeks. He denies any breathing problems, chest pain, abdominal pain or GI complaints. He has been restless, agitated at times, requiring PRN dosing of Ativan. Staff report that he has been eating well and has been having regular bowel movements. Objective Vital signs: Temperature 97.6 F 07/22/17 08:00 Pulse Rate 62 07/22/17 08:00 Respiratory Rate 16 07/22/17 08:00 Blood Pressure 177/85 H 07/22/17 08:00 Pulse Oximetry 97 07/22/17 08:00 Height/Weight/BMI: Height 1.65 m Weight 61 kg Body Mass Index 22.2 - Constitutional Present: no acute distress, well nourished, well developed, thin - Routine HEENT Exam Head: Present: normocephalic ENT: Present: mucous membranes moist, oropharynx clear - Routine Respiratory Exam Present: CTA bilaterally - Routine Cardiovascular Exam Present: RRR, S1, S2 - Routine Abdominal Exam Present: soft, non tender - Routine Extremities Exam Present: no edema - Routine Skin Exam Present: intact, dry, warm - Routine Neurological Exam Present: alert - Routine Psychiatric Exam Present: cooperative Results - Labs CBC & Chem 7: 07/22/17 07:15 07/22/17 07:15 Assessment and Plan (1) Major neurocognitive disorder Problem details: with behavioral disturbance Current visit: Yes Status: Acute Assessment and Plan: Assessment Dementia with behavioral disorder. Vitamin B12 deficiency Parkinson's disease. Chronic a-fib. Chronic anticoagulation with Eliquis. BPH. Hypertension. CAD. Plan - 07/22/17 CBC and BMP were rechecked today and were stable, hemoglobin was 13.6. Continue vit b12 Occ elevations in bp otherwise medically stable Psych notes reviewed - trying to balance Parkinson's meds while minimizing psychosis; he's tolerating Sinemet dose reduction. - Physician Narrative Narrative: Date: 07/22/17 Time: 1150 Hospital Course Summary Disclaimer: The visit summary below is not to be considered part of the above Progress Note. Hospital Course: Plan - 07/13/17 (Admission) Agree with admission to [facility] for further psychiatric evaluation and treatment. Hospitalist service consulted for medical management. Provide safe and supportive environment. Monitor closely as patient is a high fall risk. CBC and CMP in ED revealed mild macrocytic anemia (Hgb 12.7). Unknown if anemia is acute or chronic. Will asses folate and B12 levels. TSH pending. Will monitor labs periodically throughout admission. Blood pressure elevated on admission. Will continue home medications for a-fib and hypertension. Conflicting atenolol dosages noted with patient's home medication list and verified list from ED. Pharmacy contacted and verified atenolol 25mg daily is correct dose. Will continue home medications. CT head in ED revealed no acute intracranial abnormalities or hemorrhage. Continue chronic anticoagulation with Eliquis. Upon discharge, patient's care will be returned to his PCP, Dr. Carroll. Plan - 07/14/17 Patient remains irritable, unstable mood. Hypersexual with staff. Some of his initial labs are pending. Mild anemia- monitor. He is high risk for falls, and has a hx of SDH. Would consider changing anticoagulation to ASA given bleeding risk. Continue supportive care. 07/16/17 Psych: Decrease Sinemet to 1mg PO TID as it could be contributing to anxiety, agitation, paranoia. Monitor response in regards to mood/affect but also movement. If patient receives PRN Ativan, monitor to ensure there is no paradoxical response as he did not sleep well after PRN last night. Plan - 07/17/17 JW continues to be anxious with agitation and restlessness - mood is unstable. <3 hours of sleep last night and received PRN Ativan. Continue psychiatric care per Dr. Louis and team. Provide safe and supportive environment. Initial labs revealed mild anemia with Hgb 12.7. B12 low at 185. B12 IM initiated on 07/16/17 to be completed on 07/23 at which time oral B12 supplementation will be initiated. Folate stable. Monitor anemia periodically. No signs of bleeding. He is high risk for falls, and has a history of SDH. Continues on Plavix and Eliquis. Will recheck labs on 07/22 to monitor blood counts, electrolytes and renal function. Blood pressure variable. Continue to monitor closely. 07/18/17 Psych: Continue current care, attempting to find best balance for patient between treating Parkinson's and minimizing psychosis. Will revisit options after discharge with family after next staffing. 07/19/17 Psych: Again, decreased Sinemet to 12.5mg PO TID - will monitor mood/ behavior and function d/t movement disorder in attempt to find best balance/ timing of Parkinson's meds. 07/20/2017 Pt doing well. Tolerating decrease in Sinemet. Will continue to monitor for psychosis and increase in Parkinsons Symptoms 07/21/2017 Pt a little clearer today. Still has some paranoia at times but appears less bothered by it 07/22/17 CBC and BMP were rechecked today and were stable, hemoglobin was 13.6. Continue vit b12 Occ elevations in bp otherwise medically stable
--- NOTE | 2017-07-22 14:41 | Neuropsych Progress Note ---
[facility] Subjective Date: 07/22/17 - Sujective/Severity of Illness Medications: Amlodipine Besylate (Norvasc) 5 mg PO DAILY [facility] Last Admin: 07/22/17 08:39 Dose: 5 mg Apixaban (Eliquis) 5 mg PO DAILY [facility] Last Admin: 07/22/17 08:39 Dose: 5 mg Atenolol (Tenormin) 25 mg PO DAILY [facility] Last Admin: 07/22/17 08:40 Dose: 25 mg Carbidopa/Levodopa (Sinemet) 0.5 tab PO TID/E [facility] Last Admin: 07/22/17 06:05 Dose: 0.5 tab Clopidogrel Bisulfate (Plavix) 75 mg PO DAILY [facility] Last Admin: 07/22/17 08:40 Dose: 75 mg Cyanocobalamin (Vit. B-12) 1,000 mcg IM DAILY [facility] Stop: 07/23/17 08:59 Last Admin: 07/22/17 08:40 Dose: 1,000 mcg Cyanocobalamin (Vit. B-12) 1,000 mcg PO DAILY [facility] Lorazepam (Ativan) 0.5 mg PO Q6H PRN PRN Reason: Extreme agitation Last Admin: 07/21/17 18:34 Dose: 0.5 mg Lorazepam (Ativan Inj) 0.5 mg IM Q6H PRN PRN Reason: Extreme agitation Last Admin: 07/14/17 04:04 Dose: 0.5 mg Lorazepam (Ativan Intensol) 0.5 mg SL Q2H PRN Last Admin: 07/15/17 23:00 Dose: 0.5 mg Magnesium Hydroxide (Mom) 30 ml PO DAILY PRN PRN Reason: Constipation Memantine (Namenda) 5 mg PO DAILY [facility] Last Admin: 07/22/17 08:40 Dose: 5 mg Polyethylene Glycol (Miralax) 17 gm PO DAILY [facility] Last Admin: 07/22/17 11:43 Dose: Not Given Quetiapine Fumarate (Seroquel) 12.5 mg PO HS [facility] Last Admin: 07/21/17 20:22 Dose: Not Given Senna/Docusate Sodium (Senna Plus Tablet) 1 tab PO DAILY [facility] Last Admin: 07/22/17 08:40 Dose: 1 tab Senna/Docusate Sodium (Senna Plus Tablet) 1 tab PO BID PRN PRN Reason: Constipation Last Admin: 07/20/17 13:32 Dose: 1 tab Tamsulosin HCl (Flomax) 0.4 mg PO DAILY [facility] Last Admin: 07/22/17 08:40 Dose: 0.4 mg Subjective: Patient seen and chart reviewed. Case discussed with treatment team. On interview, patient is quite pleasant though I believe he makes an effort to be this way in hopes of discharge so maybe doesn't fully endorse symptoms to me. Patient denies any SI, HI or AVH. Patient denies any adverse side effects related to psychotropic medications. Nursing staff report patient has poor safety awareness and can be impulsive ( for example, wanting to run down hallway with walker). He continues to be anxious/restless at times - packing and unpacking, worrying about paperwork, etc. He did have some increased evening paranoia over the weekend and has been sexually inappropriate occasionally with nursing staff. Patient has been adherent with medications. He participates in group. Patient slept only 4.5 hours overnight. VSS. Patient is eating well. Psychotropic PRNs required in the past 24 hours: Ativan 0.5mg PO x1 at 1837; Seroquel was also given early. Start Time: 11:20 Stop Time: 11:40 Mental Status Exam Vitals: Last Vital Signs Temp 97.6 F 07/22/17 08:00 Pulse 62 07/22/17 08:00 Resp 16 07/22/17 08:00 BP 177/85 H 07/22/17 08:00 Pulse Ox 97 07/22/17 08:00 Height: 1.65 m Weight: 61 kg - Mental Status Exam Muscle Strength/Tone: Rigid (not worsened since admission) Dressing: Casual Grooming: Fair Attitude: Cooperative Motor Activity: Retardation Eye Contact: Fair Speech: Slowed Volume: Soft Rhythm: Appropriate Rhythm Orientation: Disoriented to situation, Oriented to person Mood: Euthymic Affect: Anxious Rate of Thoughts: Delayed Thought Organization: [place] Associations: Flight of Ideas Abstract Reasoning: Poor abstract reasoning Thought Content: Paranoia (occasional), Hypersexual (mild), Other (focused on d/ c; otherwise no abnormal thought content elicited during interview) Perception/Psychotic: Hx psychosis, not current Language: Naming Impaired Memory: Poor-immediate, Poor-recent Suicidal Ideation: Denies Homicidal Ideation: Denies Insight: Poor Judgement: Poor Impulse Control: Poor - Laboratory Result Diagrams: 07/22/17 07:15 07/22/17 07:15 Laboratory Results - last 24 hr 07/22/17 07/22/17 07:15 07:15 WBC 6.8 RBC 4.37 L Hgb 13.6 Hct 43.7 MCV 100.0 MCH 31.1 MCHC 31.1 RDW Std Deviation 52.3 H Plt Count 184 MPV 10.2 Immature Gran % (Auto) 0.3 Neut % (Auto) 64.3 Lymph % (Auto) 23.5 [place] % (Auto) 7.5 Eos % (Auto) 4.0 Baso % (Auto) 0.4 Neut # (Auto) 4.3 Lymph # (Auto) 1.6 [place] # (Auto) 0.5 Eos # (Auto) 0.3 Baso # (Auto) 0.0 Abs Immat Gran (auto) 0.02 Turbidity < 20 Sodium 142 Potassium 3.8 Chloride 106 Carbon Dioxide 26 Anion Gap 10 BUN 17.0 Creatinine 0.7 L GFR Calculation 109 BUN/Creatinine Ratio 24 Glucose 104 Calculated Osmolality 275 Calcium 9.5 Icterus Index < 2 Specimen Hemolysis < 15 Assessment and Plan (1) Major neurocognitive disorder Problem details: with behavioral disturbance Current visit: Yes Status: Acute (2) Parkinsons disease Current visit: Yes Status: Acute (3) Atrial fibrillation Current visit: Yes Status: Acute (4) Hypertension Current visit: Yes Status: Acute (5) Coronary artery disease Current visit: Yes Status: Acute Made the following med changes today: Sinemet to 12.5mg PO BID at 0800 and 1300 , increase Seroquel to 12.5mg PO BID at 1600 and 2100. Monitor movement vs. anxiety/paranoia in the evenings. Will discuss discharge arrangements ( placement vs. home with ) again with family. Hospital Course Summary Disclaimer: The visit summary below is not to be considered part of the above Progress Note. Hospital Course: Plan - 07/13/17 (Admission) Agree with admission to [facility] for further psychiatric evaluation and treatment. Hospitalist service consulted for medical management. Provide safe and supportive environment. Monitor closely as patient is a high fall risk. CBC and CMP in ED revealed mild macrocytic anemia (Hgb 12.7). Unknown if anemia is acute or chronic. Will asses folate and B12 levels. TSH pending. Will monitor labs periodically throughout admission. Blood pressure elevated on admission. Will continue home medications for a-fib and hypertension. Conflicting atenolol dosages noted with patient's home medication list and verified list from ED. Pharmacy contacted and verified atenolol 25mg daily is correct dose. Will continue home medications. CT head in ED revealed no acute intracranial abnormalities or hemorrhage. Continue chronic anticoagulation with Eliquis. Upon discharge, patient's care will be returned to his PCP, Dr. Carroll. Plan - 07/14/17 Patient remains irritable, unstable mood. Hypersexual with staff. Some of his initial labs are pending. Mild anemia- monitor. He is high risk for falls, and has a hx of SDH. Would consider changing anticoagulation to ASA given bleeding risk. Continue supportive care. 07/16/17 Psych: Decrease Sinemet to 1mg PO TID as it could be contributing to anxiety, agitation, paranoia. Monitor response in regards to mood/affect but also movement. If patient receives PRN Ativan, monitor to ensure there is no paradoxical response as he did not sleep well after PRN last night. Plan - 07/17/17 JW continues to be anxious with agitation and restlessness - mood is unstable. <3 hours of sleep last night and received PRN Ativan. Continue psychiatric care per Dr. Louis and team. Provide safe and supportive environment. Initial labs revealed mild anemia with Hgb 12.7. B12 low at 185. B12 IM initiated on 07/16/17 to be completed on 07/23 at which time oral B12 supplementation will be initiated. Folate stable. Monitor anemia periodically. No signs of bleeding. He is high risk for falls, and has a history of SDH. Continues on Plavix and Eliquis. Will recheck labs on 07/22 to monitor blood counts, electrolytes and renal function. Blood pressure variable. Continue to monitor closely. 07/18/17 Psych: Continue current care, attempting to find best balance for patient between treating Parkinson's and minimizing psychosis. Will revisit options after discharge with family after next staffing. 07/19/17 Psych: Again, decreased Sinemet to 12.5mg PO TID - will monitor mood/ behavior and function d/t movement disorder in attempt to find best balance/ timing of Parkinson's meds. 07/20/2017 Pt doing well. Tolerating decrease in Sinemet. Will continue to monitor for psychosis and increase in Parkinsons Symptoms 07/21/2017 Pt a little clearer today. Still has some paranoia at times but appears less bothered by it 07/22/17 CBC and BMP were rechecked today and were stable, hemoglobin was 13.6. Continue vit b12 Occ elevations in bp otherwise medically stable 07/22/17 Psych: Made the following med changes today: Sinemet to 12.5mg PO BID at 0800 and 1300, increase Seroquel to 12.5mg PO BID at 1600 and 2100. Monitor movement vs. anxiety/paranoia in the evenings. Will discuss discharge arrangements (placement vs. home with ) again with family.
[2017-07-22] MEDS: QUETIAPINE 25 MG TABLET PO SCH ×2 (16:16→20:10)
[2017-07-23] MEDS: POLYETHYL GLYCOL 3350 17gm PACKET PO SCH (08:13)
[2017-07-23] MEDS: SENNA + DOCUSATE TABLET PO SCH (08:13)
[2017-07-23] MEDS: AMLODIPINE 5 MG TABLET PO SCH (08:13)
[2017-07-23] MEDS: ATENOLOL 25 MG TABLET PO SCH (08:13)
[2017-07-23] MEDS: APIXABAN 5 MG TABLET PO SCH (08:13)
[2017-07-23] MEDS: MEMANTINE 5 MG TABLET PO SCH (08:13)
[2017-07-23] MEDS: CLOPIDOGREL 75 MG TABLET PO SCH (08:14)
[2017-07-23] MEDS: TAMSULOSIN 0.4 MG CAPSULE PO SCH (08:14)
[2017-07-23] MEDS: LORazepam 0.5 MG TABLET PO PRN (14:10)
[2017-07-23] MEDS: QUETIAPINE 25 MG TABLET PO SCH ×2 (15:58→21:10)
[2017-07-23] MEDS: LORazepam INTENSOL 1mg/0.5ml ORAL LIQUID SL PRN (17:04)
--- NOTE | 2017-07-23 18:53 | Neuropsych Progress Note ---
[facility] Subjective Date: 07/23/17 - Sujective/Severity of Illness Medications: Amlodipine Besylate (Norvasc) 5 mg PO DAILY [facility] Last Admin: 07/23/17 08:13 Dose: 5 mg Apixaban (Eliquis) 5 mg PO DAILY [facility] Last Admin: 07/23/17 08:13 Dose: 5 mg Atenolol (Tenormin) 25 mg PO DAILY [facility] Last Admin: 07/23/17 08:13 Dose: 25 mg Carbidopa/Levodopa (Sinemet) 0.5 tab PO 08,13 [facility] Last Admin: 07/23/17 12:03 Dose: 0.5 tab Clopidogrel Bisulfate (Plavix) 75 mg PO DAILY [facility] Last Admin: 07/23/17 08:14 Dose: 75 mg Cyanocobalamin (Vit. B-12) 1,000 mcg PO DAILY [facility] Lorazepam (Ativan) 0.5 mg PO Q6H PRN PRN Reason: Extreme agitation Last Admin: 07/23/17 14:10 Dose: 0.5 mg Lorazepam (Ativan Inj) 0.5 mg IM Q6H PRN PRN Reason: Extreme agitation Last Admin: 07/14/17 04:04 Dose: 0.5 mg Lorazepam (Ativan Intensol) 0.5 mg SL Q2H PRN Last Admin: 07/23/17 17:04 Dose: 0.5 mg Magnesium Hydroxide (Mom) 30 ml PO DAILY PRN PRN Reason: Constipation Memantine (Namenda) 5 mg PO DAILY [facility] Last Admin: 07/23/17 08:13 Dose: 5 mg Oseltamivir Phosphate (Tamiflu) 75 mg PO DAILY [facility] Stop: 07/28/17 09:01 Last Admin: 07/23/17 08:14 Dose: 75 mg Polyethylene Glycol (Miralax) 17 gm PO DAILY [facility] Last Admin: 07/23/17 08:13 Dose: 17 gm Quetiapine Fumarate (Seroquel) 12.5 mg PO 16,21 [facility] Last Admin: 07/23/17 15:58 Dose: 12.5 mg Senna/Docusate Sodium (Senna Plus Tablet) 1 tab PO DAILY [facility] Last Admin: 07/23/17 08:13 Dose: 1 tab Senna/Docusate Sodium (Senna Plus Tablet) 1 tab PO BID PRN PRN Reason: Constipation Last Admin: 07/20/17 13:32 Dose: 1 tab Tamsulosin HCl (Flomax) 0.4 mg PO DAILY [facility] Last Admin: 07/23/17 08:14 Dose: 0.4 mg Subjective: Patient seen and chart reviewed. Case discussed with treatment team. On interview, patient is anxious about discharging and appears a bit restless. He does not become agitated when I tell him he is not leaving today though he makes his dissatisfaction known. Patient denies any SI, HI or AVH. Patient denies any adverse side effects related to psychotropic medications. Nursing staff report patient has poor safety awareness and can be impulsive ( for example, wanting to run down hallway with walker). He continues to be anxious/restless at times. Patient has been adherent with medications. He participates in group. Patient slept only 2 hours overnight. VSS. Patient is eating well. Start Time: 11:00 Stop Time: 11:20 Mental Status Exam Vitals: Last Vital Signs Temp 98.5 F 07/23/17 15:36 Pulse 61 07/23/17 15:36 Resp 16 07/23/17 15:36 BP 126/71 07/23/17 15:36 Pulse Ox 95 07/23/17 15:36 Height: 1.65 m Weight: 60.4 kg - Mental Status Exam Muscle Strength/Tone: Rigid (not worsened since admission) Dressing: Casual Grooming: Fair Attitude: Cooperative Motor Activity: Retardation Eye Contact: Fair Speech: Slowed Volume: Soft Rhythm: Appropriate Rhythm Orientation: Disoriented to situation, Oriented to person Mood: Irritable (mild) Affect: Anxious Rate of Thoughts: Delayed Thought Organization: [place] Associations: Illogical Abstract Reasoning: Poor abstract reasoning Thought Content: Paranoia (occasional), Hypersexual (mild), Other (focused on d/ c; otherwise no abnormal thought content elicited during interview) Perception/Psychotic: Hx psychosis, not current Language: Naming Impaired Memory: Poor-immediate, Poor-recent Suicidal Ideation: Denies Homicidal Ideation: Denies Insight: Poor Judgement: Poor Impulse Control: Poor - Laboratory Result Diagrams: 07/22/17 07:15 07/22/17 07:15 Laboratory Results - last 24 hr 07/23/17 13:17 Ur Collection Type Urine, void-cc/notcc Urine Color Yellow Urine Clarity Clear Urine pH 6.0 Ur Specific [place] 1.025 Urine Protein Negative Urine Glucose (UA) Negative Urine Ketones Negative Urine Occult Blood Negative Urine Nitrate Negative Urine Bilirubin Negative Urine Urobilinogen 0.2 Ur Leukocyte Esterase Negative Urinalysis Comment Microscopic not ind. Assessment and Plan (1) Major neurocognitive disorder Problem details: with behavioral disturbance Current visit: Yes Status: Acute (2) Parkinsons disease Current visit: Yes Status: Acute (3) Atrial fibrillation Current visit: Yes Status: Acute (4) Hypertension Current visit: Yes Status: Acute (5) Coronary artery disease Current visit: Yes Status: Acute Will discuss medication to target sleep/anxiety with family/DPOA - thinking about mirtazapine vs. SSRI. Hospital Course Summary Disclaimer: The visit summary below is not to be considered part of the above Progress Note. Hospital Course: Plan - 07/13/17 (Admission) Agree with admission to [facility] for further psychiatric evaluation and treatment. Hospitalist service consulted for medical management. Provide safe and supportive environment. Monitor closely as patient is a high fall risk. CBC and CMP in ED revealed mild macrocytic anemia (Hgb 12.7). Unknown if anemia is acute or chronic. Will asses folate and B12 levels. TSH pending. Will monitor labs periodically throughout admission. Blood pressure elevated on admission. Will continue home medications for a-fib and hypertension. Conflicting atenolol dosages noted with patient's home medication list and verified list from ED. Pharmacy contacted and verified atenolol 25mg daily is correct dose. Will continue home medications. CT head in ED revealed no acute intracranial abnormalities or hemorrhage. Continue chronic anticoagulation with Eliquis. Upon discharge, patient's care will be returned to his PCP, Dr. Carroll. Plan - 07/14/17 Patient remains irritable, unstable mood. Hypersexual with staff. Some of his initial labs are pending. Mild anemia- monitor. He is high risk for falls, and has a hx of SDH. Would consider changing anticoagulation to ASA given bleeding risk. Continue supportive care. 07/16/17 Psych: Decrease Sinemet to 1mg PO TID as it could be contributing to anxiety, agitation, paranoia. Monitor response in regards to mood/affect but also movement. If patient receives PRN Ativan, monitor to ensure there is no paradoxical response as he did not sleep well after PRN last night. Plan - 07/17/17 JW continues to be anxious with agitation and restlessness - mood is unstable. <3 hours of sleep last night and received PRN Ativan. Continue psychiatric care per Dr. Louis and team. Provide safe and supportive environment. Initial labs revealed mild anemia with Hgb 12.7. B12 low at 185. B12 IM initiated on 07/16/17 to be completed on 07/23 at which time oral B12 supplementation will be initiated. Folate stable. Monitor anemia periodically. No signs of bleeding. He is high risk for falls, and has a history of SDH. Continues on Plavix and Eliquis. Will recheck labs on 07/22 to monitor blood counts, electrolytes and renal function. Blood pressure variable. Continue to monitor closely. 07/18/17 Psych: Continue current care, attempting to find best balance for patient between treating Parkinson's and minimizing psychosis. Will revisit options after discharge with family after next staffing. 07/19/17 Psych: Again, decreased Sinemet to 12.5mg PO TID - will monitor mood/ behavior and function d/t movement disorder in attempt to find best balance/ timing of Parkinson's meds. 07/20/2017 Pt doing well. Tolerating decrease in Sinemet. Will continue to monitor for psychosis and increase in Parkinsons Symptoms 07/21/2017 Pt a little clearer today. Still has some paranoia at times but appears less bothered by it 07/22/17 CBC and BMP were rechecked today and were stable, hemoglobin was 13.6. Continue vit b12 Occ elevations in bp otherwise medically stable 07/22/17 Psych: Made the following med changes today: Sinemet to 12.5mg PO BID at 0800 and 1300, increase Seroquel to 12.5mg PO BID at 1600 and 2100. Monitor movement vs. anxiety/paranoia in the evenings. Will discuss discharge arrangements (placement vs. home with ) again with family. 07/23/17 Psych: Will discuss medication to target sleep/anxiety with family/DPOA - thinking about mirtazapine vs. SSRI.
[2017-07-23] MEDS: ACETAMINOPHEN 325 MG TABLET PO PRN (21:11)
[2017-07-24] MEDS: LORazepam 0.5 MG TABLET PO PRN ×2 (05:04→20:31)
[2017-07-24] MEDS: ACETAMINOPHEN 325 MG TABLET PO PRN (05:04)
[2017-07-24] MEDS ORDERED: OLANZapine ODT 5 MG TABLET PO ONE (07:11)
[2017-07-24] MEDS: CYANOCOBALAMIN (B-12) 500mcg TABLET PO SCH ×2 (08:17→14:13)
[2017-07-24] MEDS: AMLODIPINE 5 MG TABLET PO SCH (08:17)
[2017-07-24] MEDS: APIXABAN 5 MG TABLET PO SCH (08:17)
[2017-07-24] MEDS: CLOPIDOGREL 75 MG TABLET PO SCH (08:18)
[2017-07-24] MEDS: POLYETHYL GLYCOL 3350 17gm PACKET PO SCH (08:18)
[2017-07-24] MEDS: TAMSULOSIN 0.4 MG CAPSULE PO SCH (08:18)
[2017-07-24] MEDS: ATENOLOL 25 MG TABLET PO SCH (08:18)
[2017-07-24] MEDS: SENNA + DOCUSATE TABLET PO SCH (08:18)
[2017-07-24] MEDS: MEMANTINE 5 MG TABLET PO SCH (08:18)
--- NOTE | 2017-07-24 11:28 | XRay Report ---
Indication: Flu positive PROCEDURE: XR chest 1V: Encounter: Initial Comparison: None Findings: The lungs are clear. No pleural effusion or pneumothorax. Heart size and mediastinal contours are within normal limits. Left pacemaker. Pulmonary vascularity is normal. Impression: No acute cardiopulmonary disease. .
--- NOTE | 2017-07-24 11:42 | Progress Note ---
- Date 07/24/17 Subjective: SUNDAR is seen today in follow up for his recent influenza diagnosis. He is seen while resting in bed. He denies any concerns or complaints including no chest pain, shortness of breath, abdominal pain, nausea, vomiting or dysuria. Nursing reports low grade temperature last night at 100, though no documentation of temperature >99 is noted in records. Nursing also expressed concern about increased generalized weakness as well as decreased oral intake today. He denies any cough but is noted to have a mild cough with inspiration on exam but no respiratory distress. Labs were obtained this morning and were unremarkable with the exception of new, mild anemia with hemoglobin at 13.1. Vital signs remain stable. Nursing notes that he continues to have some increased restlessness. Objective Vital signs: Temperature 98.8 F 07/24/17 00:50 Pulse Rate 62 07/24/17 08:00 Respiratory Rate 16 07/24/17 08:00 Blood Pressure 146/74 H 07/24/17 08:00 Pulse Oximetry 92 07/24/17 08:00 Height/Weight/BMI: Height 5 ft 5 in Weight 133 lb 2.547 oz Body Mass Index 22.2 Comments: resting in bed; no distress. - Constitutional Present: no acute distress, thin, cooperative - Routine HEENT Exam Head: Present: normocephalic, atraumatic Eye: Present: PERRL. Absent: conjunctival icterus ENT: Present: mucous membranes moist, oropharynx clear - Routine Respiratory Exam Present: decreased breath sounds. Absent: accessory muscle use, dyspnea, respiratory distress, rhonchi, stridor, wheezes Comments: diminished breath sounds bilaterally with poor inspiratory effort; slight cough with deep inspiration on exam which resolves quickly; no conversational dyspnea or accessory muscle use. - Routine Cardiovascular Exam Present: RRR, S1, S2 - Routine Abdominal Exam Present: soft, normoactive bowel sounds, non distended, non tender - Routine Extremities Exam Present: no edema, non tender, full ROM, pulses intact - Routine Back/Spine/Pelvis Exam Back/Spine: Present: full ROM, kyphosis. Absent: vertebral tenderness - Routine Musculoskeletal Exam Musculoskeletal: Present: moving extremities well - Routine Skin Exam Present: intact, dry, warm. Absent: jaundice Comments: afebrile. - Routine Neurological Exam Present: alert (orientated to self), moving all extremities, hearing grossly intact, normal speech. Absent: facial asymmetry - Routine Lymphatic Exam Lymphatic: Absent: lymphedema - Routine Psychiatric Exam Present: cooperative Results - Labs CBC & Chem 7: 07/24/17 10:46 07/24/17 10:46 - Imaging and Cardiology Chest x-ray Status: image reviewed by me Additional comments: Date of Exam: 07/24/17 Type of Exam(s): XR chest 1V Findings: The lungs are clear. No pleural effusion or pneumothorax. Heart size and mediastinal contours are within normal limits. Left pacemaker. Pulmonary vascularity is normal. Impression: No acute cardiopulmonary disease. Assessment and Plan (1) Major neurocognitive disorder Problem details: with behavioral disturbance Current visit: Yes Status: Acute Assessment and Plan: Assessment Dementia with behavioral disorder. Vitamin B12 deficiency Parkinson's disease. Chronic a-fib. Chronic anticoagulation with Eliquis. BPH. Hypertension. CAD. Influenza A - NEW DIAGNOSIS 07/23/17. Mild anemia - NEW DIAGNOSIS 07/24/17. Plan - 07/24/17 Due to low grade temperature and cough with recent exposure to influenza, patient underwent respiratory testing and revealed positive for Influenza A on . Tamiflu was initiated 07/23/17 to be continued through 07/28/17. CBC and BMP this morning revealed new, mild anemia with hemoglobin at 13.1 and otherwise unremarkable. WBC stable at 7.8. CXR today revealed no acute cardiopulmonary disease or changes. Continue respiratory precautions and isolation given high risk of transmission to other patients. Continue Vitamin B12 supplementation for deficiency. Blood pressure improved with initiation of Norvasc 5mg daily. Continue to monitor closely for hypotension. Continue to encourage good oral intake in light of flu diagnosis and monitor respiratory function closely. Resuscitation Status: Do Not Resuscitate - Time spent with patient Time with patient PN: 35 minutes - Physician Narrative Physician: Collins Arndt MD Narrative: Date: 07/24/17 Time: 1138 Hospital Course Summary Disclaimer: The visit summary below is not to be considered part of the above Progress Note. Hospital Course: Plan - 07/13/17 (Admission) Agree with admission to [facility] for further psychiatric evaluation and treatment. Hospitalist service consulted for medical management. Provide safe and supportive environment. Monitor closely as patient is a high fall risk. CBC and CMP in ED revealed mild macrocytic anemia (Hgb 12.7). Unknown if anemia is acute or chronic. Will asses folate and B12 levels. TSH pending. Will monitor labs periodically throughout admission. Blood pressure elevated on admission. Will continue home medications for a-fib and hypertension. Conflicting atenolol dosages noted with patient's home medication list and verified list from ED. Pharmacy contacted and verified atenolol 25mg daily is correct dose. Will continue home medications. CT head in ED revealed no acute intracranial abnormalities or hemorrhage. Continue chronic anticoagulation with Eliquis. Upon discharge, patient's care will be returned to his PCP, Dr. Carroll. Plan - 07/14/17 Patient remains irritable, unstable mood. Hypersexual with staff. Some of his initial labs are pending. Mild anemia- monitor. He is high risk for falls, and has a hx of SDH. Would consider changing anticoagulation to ASA given bleeding risk. Continue supportive care. 07/16/17 Psych: Decrease Sinemet to 1mg PO TID as it could be contributing to anxiety, agitation, paranoia. Monitor response in regards to mood/affect but also movement. If patient receives PRN Ativan, monitor to ensure there is no paradoxical response as he did not sleep well after PRN last night. Plan - 07/17/17 JW continues to be anxious with agitation and restlessness - mood is unstable. <3 hours of sleep last night and received PRN Ativan. Continue psychiatric care per Dr. Louis and team. Provide safe and supportive environment. Initial labs revealed mild anemia with Hgb 12.7. B12 low at 185. B12 IM initiated on 07/16/17 to be completed on 07/23 at which time oral B12 supplementation will be initiated. Folate stable. Monitor anemia periodically. No signs of bleeding. He is high risk for falls, and has a history of SDH. Continues on Plavix and Eliquis. Will recheck labs on 07/22 to monitor blood counts, electrolytes and renal function. Blood pressure variable. Continue to monitor closely. 07/18/17 Psych: Continue current care, attempting to find best balance for patient between treating Parkinson's and minimizing psychosis. Will revisit options after discharge with family after next staffing. 07/19/17 Psych: Again, decreased Sinemet to 12.5mg PO TID - will monitor mood/ behavior and function d/t movement disorder in attempt to find best balance/ timing of Parkinson's meds. 07/20/2017 Pt doing well. Tolerating decrease in Sinemet. Will continue to monitor for psychosis and increase in Parkinsons Symptoms 07/21/2017 Pt a little clearer today. Still has some paranoia at times but appears less bothered by it 07/22/17 CBC and BMP were rechecked today and were stable, hemoglobin was 13.6. Continue vit b12 Occ elevations in bp otherwise medically stable 07/22/17 Psych: Made the following med changes today: Sinemet to 12.5mg PO BID at 0800 and 1300, increase Seroquel to 12.5mg PO BID at 1600 and 2100. Monitor movement vs. anxiety/paranoia in the evenings. Will discuss discharge arrangements (placement vs. home with ) again with family. 07/23/17 Psych: Will discuss medication to target sleep/anxiety with family/DPOA - thinking about mirtazapine vs. SSRI. Plan - 07/24/17 Due to low grade temperature and cough with recent exposure to influenza, patient underwent respiratory testing and revealed positive for Influenza A on . Tamiflu was initiated 07/23/17 to be continued through 07/28/17. CBC and BMP this morning revealed new, mild anemia with hemoglobin at 13.1 and otherwise unremarkable. WBC stable at 7.8. CXR today revealed no acute cardiopulmonary disease or changes. Continue respiratory precautions and isolation given high risk of transmission to other patients. Continue Vitamin B12 supplementation for deficiency. Blood pressure improved with initiation of Norvasc 5mg daily. Continue to monitor closely for hypotension. Continue to encourage good oral intake in light of flu diagnosis and monitor respiratory function closely.
[2017-07-24] MEDS ORDERED: ALBUTEROL/IPRATROPIUM 2.5mg-0.5mg/3ml NEB AEROSOL PRN (11:51)
[2017-07-24] MEDS: QUETIAPINE 25 MG TABLET PO SCH ×2 (17:10→20:31)
--- NOTE | 2017-07-24 19:53 | Neuropsych Progress Note ---
[facility] Subjective Date: 07/25/17 - Sujective/Severity of Illness Medications: Acetaminophen (Tylenol) 650 mg PO Q5H PRN PRN Reason: Discomfort Last Admin: 07/24/17 05:04 Dose: 650 mg Albuterol/Ipratropium (Duoneb) 3 ml AEROSOL RTQID PRN Amlodipine Besylate (Norvasc) 5 mg PO DAILY [facility] Last Admin: 07/24/17 08:17 Dose: 5 mg Apixaban (Eliquis) 5 mg PO DAILY [facility] Last Admin: 07/24/17 08:17 Dose: 5 mg Atenolol (Tenormin) 25 mg PO DAILY [facility] Last Admin: 07/24/17 08:18 Dose: 25 mg Carbidopa/Levodopa (Sinemet) 0.5 tab PO 08,13 [facility] Last Admin: 07/24/17 14:15 Dose: 0.5 tab Clopidogrel Bisulfate (Plavix) 75 mg PO DAILY [facility] Last Admin: 07/24/17 08:18 Dose: 75 mg Cyanocobalamin (Vit. B-12) 1,000 mcg PO DAILY [facility] Last Admin: 07/24/17 14:13 Dose: Not Given Lorazepam (Ativan) 0.5 mg PO Q6H PRN PRN Reason: Extreme agitation Last Admin: 07/24/17 05:04 Dose: 0.5 mg Lorazepam (Ativan Inj) 0.5 mg IM Q6H PRN PRN Reason: Extreme agitation Last Admin: 07/14/17 04:04 Dose: 0.5 mg Lorazepam (Ativan Intensol) 0.5 mg SL Q2H PRN Last Admin: 07/23/17 17:04 Dose: 0.5 mg Magnesium Hydroxide (Mom) 30 ml PO DAILY PRN PRN Reason: Constipation Memantine (Namenda) 5 mg PO DAILY [facility] Last Admin: 07/24/17 08:18 Dose: 5 mg Oseltamivir Phosphate (Tamiflu) 75 mg PO DAILY [facility] Stop: 07/28/17 09:01 Last Admin: 07/24/17 08:18 Dose: 75 mg Polyethylene Glycol (Miralax) 17 gm PO DAILY [facility] Last Admin: 07/24/17 08:18 Dose: 17 gm Quetiapine Fumarate (Seroquel) 12.5 mg PO 16,21 [facility] Last Admin: 07/24/17 17:10 Dose: 12.5 mg Senna/Docusate Sodium (Senna Plus Tablet) 1 tab PO DAILY [facility] Last Admin: 07/24/17 08:18 Dose: 1 tab Senna/Docusate Sodium (Senna Plus Tablet) 1 tab PO BID PRN PRN Reason: Constipation Last Admin: 07/20/17 13:32 Dose: 1 tab Tamsulosin HCl (Flomax) 0.4 mg PO DAILY [facility] Last Admin: 07/24/17 08:18 Dose: 0.4 mg Subjective: Patient seen and chart reviewed. Case discussed with treatment team. Patient is sleeping at time of rounds. He is not woken up to interview as he has to remain in isolation/precautions in his room and he can be restless at times as there is not much to distract him, no TV in his room, etc. Nursing staff report patient has poor safety awareness and can be impulsive ( for example, wanting to run down hallway with walker). He continues to be anxious/restless and irritable at times. However, this is likely complicated by the above issue that patient cannot come out of room right now and cannot remember why he must remain in there, that he tested positive for the flu, etc. He frequently asks why he has to be in the hospital, about discharge, etc. Patient has been adherent with medications. Patient slept only 7.25 hours overnight. VSS. Patient is eating well. Patient was given Ativan 0.5mg SL at 1705 for increasing irritability/agitation without being able to be redirected. Discussed diagnosis, treatment plan with /DPOA and that increased anxiety/ symptoms may be related to physical illness with influenza - would like to monitor for any signs of progressing delirium and reassess as he recovers to see what further psychotropic med changes may be necessary. She feels confident that she and her children can care for him in the home after discharge. Start Time: 10:20 Stop Time: 10:40 Mental Status Exam Vitals: Last Vital Signs Temp 97.8 F 07/24/17 15:36 Pulse 62 07/24/17 15:36 Resp 16 07/24/17 15:36 BP 122/58 07/24/17 15:36 Pulse Ox 92 07/24/17 15:36 Height: 1.65 m Weight: 60.4 kg - Mental Status Exam Muscle Strength/Tone: Rigid (not worsened since admission) Dressing: Casual Grooming: Fair Attitude: Cooperative Motor Activity: Retardation Eye Contact: Fair Speech: Slowed Volume: Soft Rhythm: Appropriate Rhythm Orientation: Disoriented to situation, Oriented to person Mood: Irritable (mild) Affect: Anxious (at times) Rate of Thoughts: Delayed Thought Organization: [place] Associations: Illogical Abstract Reasoning: Poor abstract reasoning Thought Content: Paranoia (very mild, intermittent at this point), Other ( focused on d/c; otherwise no abnormal thought content elicited during interview) Perception/Psychotic: Hx psychosis, not current Language: Naming Impaired Memory: Poor-immediate, Poor-recent Suicidal Ideation: Denies Homicidal Ideation: Denies Insight: Poor Judgement: Poor Impulse Control: Poor (mostly related to safety awareness, fall risk) - Laboratory Result Diagrams: 07/24/17 10:46 07/24/17 10:46 Laboratory Results - last 24 hr 07/24/17 07/24/17 07/24/17 00:19 10:46 10:46 WBC 7.8 RBC 4.19 L Hgb 13.1 L Hct 42.3 MCV 101.0 H MCH 31.3 MCHC 31.0 RDW Std Deviation 53.4 H Plt Count 177 MPV 10.3 Immature Gran % (Auto) 0.4 Neut % (Auto) 73.7 H Lymph % (Auto) 14.7 L [place] % (Auto) 8.5 Eos % (Auto) 2.3 Baso % (Auto) 0.4 Neut # (Auto) 5.7 Lymph # (Auto) 1.1 [place] # (Auto) 0.7 Eos # (Auto) 0.2 Baso # (Auto) 0.0 Abs Immat Gran (auto) 0.03 Turbidity < 20 Sodium 142 Potassium 4.1 Chloride 107 Carbon Dioxide 27 Anion Gap 8 BUN 15.0 Creatinine 0.7 L GFR Calculation 109 BUN/Creatinine Ratio 21 Glucose 119 H Calculated Osmolality 275 Calcium 9.3 Icterus Index < 2 Specimen Hemolysis 16 Influenza Type A (PCR) Positive A* Influenza Type B (PCR) Negative Assessment and Plan (1) Major neurocognitive disorder Problem details: with behavioral disturbance Current visit: Yes Status: Acute (2) Parkinsons disease Current visit: Yes Status: Acute (3) Atrial fibrillation Current visit: Yes Status: Acute (4) Hypertension Current visit: Yes Status: Acute (5) Coronary artery disease Current visit: Yes Status: Acute Continue current care as patient recovers from influenza. Hospital Course Summary Disclaimer: The visit summary below is not to be considered part of the above Progress Note. Hospital Course: Plan - 07/13/17 (Admission) Agree with admission to [facility] for further psychiatric evaluation and treatment. Hospitalist service consulted for medical management. Provide safe and supportive environment. Monitor closely as patient is a high fall risk. CBC and CMP in ED revealed mild macrocytic anemia (Hgb 12.7). Unknown if anemia is acute or chronic. Will asses folate and B12 levels. TSH pending. Will monitor labs periodically throughout admission. Blood pressure elevated on admission. Will continue home medications for a-fib and hypertension. Conflicting atenolol dosages noted with patient's home medication list and verified list from ED. Pharmacy contacted and verified atenolol 25mg daily is correct dose. Will continue home medications. CT head in ED revealed no acute intracranial abnormalities or hemorrhage. Continue chronic anticoagulation with Eliquis. Upon discharge, patient's care will be returned to his PCP, Dr. Carroll. Plan - 07/14/17 Patient remains irritable, unstable mood. Hypersexual with staff. Some of his initial labs are pending. Mild anemia- monitor. He is high risk for falls, and has a hx of SDH. Would consider changing anticoagulation to ASA given bleeding risk. Continue supportive care. 07/16/17 Psych: Decrease Sinemet to 1mg PO TID as it could be contributing to anxiety, agitation, paranoia. Monitor response in regards to mood/affect but also movement. If patient receives PRN Ativan, monitor to ensure there is no paradoxical response as he did not sleep well after PRN last night. Plan - 07/17/17 JW continues to be anxious with agitation and restlessness - mood is unstable. <3 hours of sleep last night and received PRN Ativan. Continue psychiatric care per Dr. Louis and team. Provide safe and supportive environment. Initial labs revealed mild anemia with Hgb 12.7. B12 low at 185. B12 IM initiated on 07/16/17 to be completed on 07/23 at which time oral B12 supplementation will be initiated. Folate stable. Monitor anemia periodically. No signs of bleeding. He is high risk for falls, and has a history of SDH. Continues on Plavix and Eliquis. Will recheck labs on 07/22 to monitor blood counts, electrolytes and renal function. Blood pressure variable. Continue to monitor closely. 07/18/17 Psych: Continue current care, attempting to find best balance for patient between treating Parkinson's and minimizing psychosis. Will revisit options after discharge with family after next staffing. 07/19/17 Psych: Again, decreased Sinemet to 12.5mg PO TID - will monitor mood/ behavior and function d/t movement disorder in attempt to find best balance/ timing of Parkinson's meds. 07/20/2017 Pt doing well. Tolerating decrease in Sinemet. Will continue to monitor for psychosis and increase in Parkinsons Symptoms 07/21/2017 Pt a little clearer today. Still has some paranoia at times but appears less bothered by it 07/22/17 CBC and BMP were rechecked today and were stable, hemoglobin was 13.6. Continue vit b12 Occ elevations in bp otherwise medically stable 07/22/17 Psych: Made the following med changes today: Sinemet to 12.5mg PO BID at 0800 and 1300, increase Seroquel to 12.5mg PO BID at 1600 and 2100. Monitor movement vs. anxiety/paranoia in the evenings. Will discuss discharge arrangements (placement vs. home with ) again with family. 07/23/17 Psych: Will discuss medication to target sleep/anxiety with family/DPOA - thinking about mirtazapine vs. SSRI. Plan - 07/24/17 Due to low grade temperature and cough with recent exposure to influenza, patient underwent respiratory testing and revealed positive for Influenza A on . Tamiflu was initiated 07/23/17 to be continued through 07/28/17. CBC and BMP this morning revealed new, mild anemia with hemoglobin at 13.1 and otherwise unremarkable. WBC stable at 7.8. CXR today revealed no acute cardiopulmonary disease or changes. Continue respiratory precautions and isolation given high risk of transmission to other patients. Continue Vitamin B12 supplementation for deficiency. Blood pressure improved with initiation of Norvasc 5mg daily. Continue to monitor closely for hypotension. Continue to encourage good oral intake in light of flu diagnosis and monitor respiratory function closely.
[2017-07-25] MEDS: OLANZapine ODT 5 MG TABLET PO PRN ×2 (01:40→21:59)
[2017-07-25] MEDS: AMLODIPINE 5 MG TABLET PO SCH (09:17)
[2017-07-25] MEDS: APIXABAN 5 MG TABLET PO SCH (09:17)
[2017-07-25] MEDS: ATENOLOL 25 MG TABLET PO SCH (09:17)
[2017-07-25] MEDS: CLOPIDOGREL 75 MG TABLET PO SCH (09:18)
[2017-07-25] MEDS: MEMANTINE 5 MG TABLET PO SCH (09:18)
[2017-07-25] MEDS: POLYETHYL GLYCOL 3350 17gm PACKET PO SCH (09:18)
[2017-07-25] MEDS: CYANOCOBALAMIN (B-12) 500mcg TABLET PO SCH (09:18)
[2017-07-25] MEDS: TAMSULOSIN 0.4 MG CAPSULE PO SCH (09:19)
[2017-07-25] MEDS: SENNA + DOCUSATE TABLET PO SCH (09:19)
[2017-07-25] MEDS: QUETIAPINE 25 MG TABLET PO SCH ×2 (16:10→20:21)
--- NOTE | 2017-07-25 22:32 | Neuropsych Progress Note ---
[facility] Subjective Date: 07/25/17 - Sujective/Severity of Illness Medications: Acetaminophen (Tylenol) 650 mg PO Q5H PRN PRN Reason: Discomfort Last Admin: 07/24/17 05:04 Dose: 650 mg Albuterol/Ipratropium (Duoneb) 3 ml AEROSOL RTQID PRN Amlodipine Besylate (Norvasc) 5 mg PO DAILY [facility] Last Admin: 07/25/17 09:17 Dose: 5 mg Apixaban (Eliquis) 5 mg PO DAILY [facility] Last Admin: 07/25/17 09:17 Dose: 5 mg Atenolol (Tenormin) 25 mg PO DAILY [facility] Last Admin: 07/25/17 09:17 Dose: 25 mg Carbidopa/Levodopa (Sinemet) 0.5 tab PO 08,13 [facility] Last Admin: 07/25/17 13:39 Dose: 0.5 tab Clopidogrel Bisulfate (Plavix) 75 mg PO DAILY [facility] Last Admin: 07/25/17 09:18 Dose: 75 mg Cyanocobalamin (Vit. B-12) 1,000 mcg PO DAILY [facility] Last Admin: 07/25/17 09:18 Dose: 1,000 mcg Lorazepam (Ativan) 0.5 mg PO Q6H PRN PRN Reason: Extreme agitation Last Admin: 07/24/17 20:31 Dose: 0.5 mg Lorazepam (Ativan Inj) 0.5 mg IM Q6H PRN PRN Reason: Extreme agitation Last Admin: 07/14/17 04:04 Dose: 0.5 mg Lorazepam (Ativan Intensol) 0.5 mg SL Q2H PRN Last Admin: 07/23/17 17:04 Dose: 0.5 mg Magnesium Hydroxide (Mom) 30 ml PO DAILY PRN PRN Reason: Constipation Memantine (Namenda) 5 mg PO DAILY [facility] Last Admin: 07/25/17 09:18 Dose: 5 mg Olanzapine (Zyprexa Zydis) 2.5 mg PO Q6HR PRN PRN Reason: Extreme agitation Last Admin: 07/25/17 21:59 Dose: 2.5 mg Oseltamivir Phosphate (Tamiflu) 75 mg PO BID [facility] Stop: 07/29/17 21:01 Last Admin: 07/25/17 20:21 Dose: 75 mg Polyethylene Glycol (Miralax) 17 gm PO DAILY [facility] Last Admin: 07/25/17 09:18 Dose: 17 gm Quetiapine Fumarate (Seroquel) 12.5 mg PO 16,21 [facility] Last Admin: 07/25/17 20:21 Dose: 12.5 mg Senna/Docusate Sodium (Senna Plus Tablet) 1 tab PO DAILY [facility] Last Admin: 07/25/17 09:19 Dose: 1 tab Senna/Docusate Sodium (Senna Plus Tablet) 1 tab PO BID PRN PRN Reason: Constipation Last Admin: 07/20/17 13:32 Dose: 1 tab Tamsulosin HCl (Flomax) 0.4 mg PO DAILY [facility] Last Admin: 07/25/17 09:19 Dose: 0.4 mg Subjective: Patient seen and chart reviewed. Case discussed with treatment team. On interview, patient is pleasant and less anxious than previously seen. He doesn't quite understand why he has to stay in his room but is less perseverative about discharge. I remind him of testing positive for Influenza and then he says, "Oh, well I could get sick." Patient denies any SI, HI or AVH. Patient denies any adverse side effects related to psychotropic medications. No change in rigidity appreciated from admission despite multiple med changes. Nursing staff report patient can be anxious at times but is fairly redirectable most times. Overnight, he had some possible hallucinations and anxiety about his father getting hurt - has reportedly not had any today. Patient has been adherent with medications. Patient slept 6.75 overnight. VSS. Patient is eating well. Psychotropic PRNs required in the past 24 hours: Zyprexa 2.5mg PO x 2 but this is partially related to difficulty keeping patient calm and satisfied while in contact precautions and isolation. Start Time: 11:40 Stop Time: 12:00 Mental Status Exam Vitals: Last Vital Signs Temp 97.7 F 07/25/17 16:00 Pulse 66 07/25/17 16:00 Resp 18 07/25/17 16:00 BP 164/81 H 07/25/17 16:00 Pulse Ox 96 07/25/17 16:00 Height: 1.65 m Weight: 60.4 kg - Mental Status Exam Muscle Strength/Tone: Rigid (not worsened since admission) Dressing: Casual Grooming: Fair Attitude: Cooperative Motor Activity: Retardation Eye Contact: Fair Speech: Slowed Volume: Soft Rhythm: Appropriate Rhythm Orientation: Disoriented to situation, Oriented to person Mood: Euthymic Affect: Relaxed Rate of Thoughts: Delayed Thought Organization: [place] Associations: Illogical Abstract Reasoning: Poor abstract reasoning Thought Content: Other (focused on d/c; otherwise no abnormal thought content elicited during interview) Perception/Psychotic: Psychotic Current Hallucinations: Visual (reported o/n by staff) Language: Naming Impaired Memory: Poor-immediate, Poor-recent Suicidal Ideation: Denies Homicidal Ideation: Denies Insight: Poor Judgement: Poor Impulse Control: Other (Limited) - Laboratory Result Diagrams: 07/24/17 10:46 07/24/17 10:46 Assessment and Plan (1) Major neurocognitive disorder Problem details: modeate, with behavioral disturbance Parkinson's dementia suspected Current visit: Yes Status: Acute (2) Parkinsons disease Current visit: Yes Status: Acute (3) Atrial fibrillation Current visit: Yes Status: Acute (4) Hypertension Current visit: Yes Status: Acute (5) Coronary artery disease Current visit: Yes Status: Acute Continue current care as patient recovers from influenza; monitor for increase in symptoms and may adjust psych meds if needed - doing well so far given medical concerns. Hospital Course Summary Disclaimer: The visit summary below is not to be considered part of the above Progress Note. Hospital Course: Plan - 07/13/17 (Admission) Agree with admission to [facility] for further psychiatric evaluation and treatment. Hospitalist service consulted for medical management. Provide safe and supportive environment. Monitor closely as patient is a high fall risk. CBC and CMP in ED revealed mild macrocytic anemia (Hgb 12.7). Unknown if anemia is acute or chronic. Will asses folate and B12 levels. TSH pending. Will monitor labs periodically throughout admission. Blood pressure elevated on admission. Will continue home medications for a-fib and hypertension. Conflicting atenolol dosages noted with patient's home medication list and verified list from ED. Pharmacy contacted and verified atenolol 25mg daily is correct dose. Will continue home medications. CT head in ED revealed no acute intracranial abnormalities or hemorrhage. Continue chronic anticoagulation with Eliquis. Upon discharge, patient's care will be returned to his PCP, Dr. Carroll. Plan - 07/14/17 Patient remains irritable, unstable mood. Hypersexual with staff. Some of his initial labs are pending. Mild anemia- monitor. He is high risk for falls, and has a hx of SDH. Would consider changing anticoagulation to ASA given bleeding risk. Continue supportive care. 07/16/17 Psych: Decrease Sinemet to 1mg PO TID as it could be contributing to anxiety, agitation, paranoia. Monitor response in regards to mood/affect but also movement. If patient receives PRN Ativan, monitor to ensure there is no paradoxical response as he did not sleep well after PRN last night. Plan - 07/17/17 JW continues to be anxious with agitation and restlessness - mood is unstable. <3 hours of sleep last night and received PRN Ativan. Continue psychiatric care per Dr. Louis and team. Provide safe and supportive environment. Initial labs revealed mild anemia with Hgb 12.7. B12 low at 185. B12 IM initiated on 07/16/17 to be completed on 07/23 at which time oral B12 supplementation will be initiated. Folate stable. Monitor anemia periodically. No signs of bleeding. He is high risk for falls, and has a history of SDH. Continues on Plavix and Eliquis. Will recheck labs on 07/22 to monitor blood counts, electrolytes and renal function. Blood pressure variable. Continue to monitor closely. 07/18/17 Psych: Continue current care, attempting to find best balance for patient between treating Parkinson's and minimizing psychosis. Will revisit options after discharge with family after next staffing. 07/19/17 Psych: Again, decreased Sinemet to 12.5mg PO TID - will monitor mood/ behavior and function d/t movement disorder in attempt to find best balance/ timing of Parkinson's meds. 07/20/2017 Pt doing well. Tolerating decrease in Sinemet. Will continue to monitor for psychosis and increase in Parkinsons Symptoms 07/21/2017 Pt a little clearer today. Still has some paranoia at times but appears less bothered by it 07/22/17 CBC and BMP were rechecked today and were stable, hemoglobin was 13.6. Continue vit b12 Occ elevations in bp otherwise medically stable 07/22/17 Psych: Made the following med changes today: Sinemet to 12.5mg PO BID at 0800 and 1300, increase Seroquel to 12.5mg PO BID at 1600 and 2100. Monitor movement vs. anxiety/paranoia in the evenings. Will discuss discharge arrangements (placement vs. home with ) again with family. 07/23/17 Psych: Will discuss medication to target sleep/anxiety with family/DPOA - thinking about mirtazapine vs. SSRI. Plan - 07/24/17 Due to low grade temperature and cough with recent exposure to influenza, patient underwent respiratory testing and revealed positive for Influenza A on . Tamiflu was initiated 07/23/17 to be continued through 07/28/17. CBC and BMP this morning revealed new, mild anemia with hemoglobin at 13.1 and otherwise unremarkable. WBC stable at 7.8. CXR today revealed no acute cardiopulmonary disease or changes. Continue respiratory precautions and isolation given high risk of transmission to other patients. Continue Vitamin B12 supplementation for deficiency. Blood pressure improved with initiation of Norvasc 5mg daily. Continue to monitor closely for hypotension. Continue to encourage good oral intake in light of flu diagnosis and monitor respiratory function closely. 07/25/17 Psych: Continue current care as patient recovers from influenza; monitor for increase in symptoms and may adjust psych meds if needed - doing well so far given medical concerns.
[2017-07-25] MEDS: LORazepam INTENSOL 1mg/0.5ml ORAL LIQUID SL PRN (22:44)
[2017-07-26] MEDS: APIXABAN 5 MG TABLET PO SCH (08:00)
[2017-07-26] MEDS: MEMANTINE 5 MG TABLET PO SCH (08:00)
[2017-07-26] MEDS: POLYETHYL GLYCOL 3350 17gm PACKET PO SCH (08:00)
[2017-07-26] MEDS: ATENOLOL 25 MG TABLET PO SCH (08:00)
[2017-07-26] MEDS: CLOPIDOGREL 75 MG TABLET PO SCH (08:00)
[2017-07-26] MEDS: CYANOCOBALAMIN (B-12) 500mcg TABLET PO SCH (08:00)
[2017-07-26] MEDS: AMLODIPINE 5 MG TABLET PO SCH (08:01)
[2017-07-26] MEDS: TAMSULOSIN 0.4 MG CAPSULE PO SCH (08:01)
[2017-07-26] MEDS: SENNA + DOCUSATE TABLET PO SCH (08:01)
[2017-07-26] MEDS: QUETIAPINE 25 MG TABLET PO SCH ×2 (17:17→19:51)
[2017-07-26] MEDS: MIRTAZAPINE 15 MG TABLET PO SCH (19:47)
[2017-07-26] MEDS: LORazepam 0.5 MG TABLET PO PRN (19:48)
[2017-07-26] MEDS: MELATONIN 1 MG TABLET PO SCH (19:48)
--- NOTE | 2017-07-26 21:06 | Neuropsych Progress Note ---
[facility] Subjective Date: 07/27/17 - Sujective/Severity of Illness Medications: Acetaminophen (Tylenol) 650 mg PO Q5H PRN PRN Reason: Discomfort Last Admin: 07/24/17 05:04 Dose: 650 mg Albuterol/Ipratropium (Duoneb) 3 ml AEROSOL RTQID PRN Amlodipine Besylate (Norvasc) 5 mg PO DAILY [facility] Last Admin: 07/26/17 08:01 Dose: 5 mg Apixaban (Eliquis) 5 mg PO DAILY [facility] Last Admin: 07/26/17 08:00 Dose: 5 mg Atenolol (Tenormin) 25 mg PO DAILY [facility] Last Admin: 07/26/17 08:00 Dose: 25 mg Carbidopa/Levodopa (Sinemet) 0.5 tab PO 08,13 [facility] Last Admin: 07/26/17 12:27 Dose: 0.5 tab Clopidogrel Bisulfate (Plavix) 75 mg PO DAILY [facility] Last Admin: 07/26/17 08:00 Dose: 75 mg Cyanocobalamin (Vit. B-12) 1,000 mcg PO DAILY [facility] Last Admin: 07/26/17 08:00 Dose: 1,000 mcg Lorazepam (Ativan) 0.5 mg PO Q6H PRN PRN Reason: Extreme agitation Last Admin: 07/26/17 19:48 Dose: 0.5 mg Lorazepam (Ativan Inj) 0.5 mg IM Q6H PRN PRN Reason: Extreme agitation Last Admin: 07/14/17 04:04 Dose: 0.5 mg Lorazepam (Ativan Intensol) 0.5 mg SL Q2H PRN Last Admin: 07/25/17 22:44 Dose: 0.5 mg Magnesium Hydroxide (Mom) 30 ml PO DAILY PRN PRN Reason: Constipation Melatonin (Melatonin) 3 mg PO HS [facility] Last Admin: 07/26/17 19:48 Dose: 3 mg Memantine (Namenda) 5 mg PO DAILY [facility] Last Admin: 07/26/17 08:00 Dose: 5 mg Mirtazapine (Remeron) 7.5 mg PO HS [facility] Last Admin: 07/26/17 19:47 Dose: 7.5 mg Olanzapine (Zyprexa Zydis) 2.5 mg PO Q6HR PRN PRN Reason: Extreme agitation Last Admin: 07/25/17 21:59 Dose: 2.5 mg Oseltamivir Phosphate (Tamiflu) 75 mg PO BID [facility] Stop: 07/29/17 21:01 Last Admin: 07/26/17 19:50 Dose: 75 mg Polyethylene Glycol (Miralax) 17 gm PO DAILY [facility] Last Admin: 07/26/17 08:00 Dose: 17 gm Quetiapine Fumarate (Seroquel) 12.5 mg PO 16,21 [facility] Last Admin: 07/26/17 19:51 Dose: 12.5 mg Senna/Docusate Sodium (Senna Plus Tablet) 1 tab PO DAILY [facility] Last Admin: 07/26/17 08:01 Dose: 1 tab Senna/Docusate Sodium (Senna Plus Tablet) 1 tab PO BID PRN PRN Reason: Constipation Last Admin: 07/20/17 13:32 Dose: 1 tab Tamsulosin HCl (Flomax) 0.4 mg PO DAILY [facility] Last Admin: 07/26/17 08:01 Dose: 0.4 mg Subjective: Patient seen and chart reviewed. Case discussed with treatment team. On interview, patient is pleasant and less anxious than previously seen. He doesn't quite understand why he has to stay in his room but is less perseverative about discharge. Patient denies any SI, HI or AVH. Patient denies any adverse side effects related to psychotropic medications. No change in rigidity appreciated from admission despite multiple med changes. However, he appears to have increased tremors and a little more difficulty with gait after tapering Sinemet. Nursing staff report patient can be anxious at times but is fairly redirectable most times. Overnight, he had difficulty sleeping (only 1.75 hours), had visual hallucinations, more morbid talk, and some physical aggression with cares. This is a significant difference from his presentation prior to getting influenza. Patient has been adherent with medications. VSS. Patient is eating well. Discussed diagnosis, treatment, prognosis with DPOA/ and son. Plan to have patient transferred to SNU and likely placement after discharge. Obtained informed consent to start mirtazapine 7.5mg PO q HS tonight to target insomnia, appetite, mood/anxiety. Will also call in a Rx for Nuplazid to pharmacy so family can evaluate what that medication may cost with insurance. All questions answered to their satisfaction and they thanked us for patient's care. Start Time: 12:40 Stop Time: 13:20 Care: >50% of this visit spent in counseling/coordination care. (family meeting) Mental Status Exam Vitals: Last Vital Signs Temp 96.9 F 07/26/17 16:00 Pulse 62 07/26/17 16:00 Resp 20 07/26/17 16:00 BP 133/61 07/26/17 16:00 Pulse Ox 94 07/26/17 16:00 Height: 1.65 m Weight: 60.3 kg - Mental Status Exam Muscle Strength/Tone: Rigid (not worsened since admission) Dressing: Casual Grooming: Fair Attitude: Cooperative Motor Activity: Retardation, Tremors Eye Contact: Fair Speech: Slowed Volume: Soft Rhythm: Appropriate Rhythm Orientation: Disoriented to situation, Oriented to person Mood: Neutral Affect: Relaxed (during interview, more anxious/restless overnight) Rate of Thoughts: Delayed Thought Organization: [place] Associations: Illogical (at times) Abstract Reasoning: Poor abstract reasoning Thought Content: Other (morbid thought content shared with staff o/n) Perception/Psychotic: Psychotic Current Hallucinations: Visual (reported o/n by staff) Language: [place] Impaired Memory: Poor-immediate, Poor-recent Suicidal Ideation: Denies Homicidal Ideation: Denies Insight: Poor Judgement: Poor Impulse Control: Other (Limited) - Laboratory Result Diagrams: 07/24/17 10:46 07/24/17 10:46 Assessment and Plan (1) Major neurocognitive disorder Problem details: modeate, with behavioral disturbance Parkinson's dementia suspected Current visit: Yes Status: Acute (2) Parkinsons disease Current visit: Yes Status: Acute (3) Atrial fibrillation Current visit: Yes Status: Acute (4) Hypertension Current visit: Yes Status: Acute (5) Coronary artery disease Current visit: Yes Status: Acute Start mirtazapine 7.5mg PO q HS. I believe worsening of symptoms is more related to influenza than underlying Parkinson's dementia/psychosis. Will continue to monitor as he recovers from viral illness. Also believe patient will fare better when allowed out of isolation/precautions. Hospital Course Summary Disclaimer: The visit summary below is not to be considered part of the above Progress Note. Hospital Course: Plan - 07/13/17 (Admission) Agree with admission to [facility] for further psychiatric evaluation and treatment. Hospitalist service consulted for medical management. Provide safe and supportive environment. Monitor closely as patient is a high fall risk. CBC and CMP in ED revealed mild macrocytic anemia (Hgb 12.7). Unknown if anemia is acute or chronic. Will asses folate and B12 levels. TSH pending. Will monitor labs periodically throughout admission. Blood pressure elevated on admission. Will continue home medications for a-fib and hypertension. Conflicting atenolol dosages noted with patient's home medication list and verified list from ED. Pharmacy contacted and verified atenolol 25mg daily is correct dose. Will continue home medications. CT head in ED revealed no acute intracranial abnormalities or hemorrhage. Continue chronic anticoagulation with Eliquis. Upon discharge, patient's care will be returned to his PCP, Dr. Carroll. Plan - 07/14/17 Patient remains irritable, unstable mood. Hypersexual with staff. Some of his initial labs are pending. Mild anemia- monitor. He is high risk for falls, and has a hx of SDH. Would consider changing anticoagulation to ASA given bleeding risk. Continue supportive care. 07/16/17 Psych: Decrease Sinemet to 1mg PO TID as it could be contributing to anxiety, agitation, paranoia. Monitor response in regards to mood/affect but also movement. If patient receives PRN Ativan, monitor to ensure there is no paradoxical response as he did not sleep well after PRN last night. Plan - 07/17/17 JW continues to be anxious with agitation and restlessness - mood is unstable. <3 hours of sleep last night and received PRN Ativan. Continue psychiatric care per Dr. Louis and team. Provide safe and supportive environment. Initial labs revealed mild anemia with Hgb 12.7. B12 low at 185. B12 IM initiated on 07/16/17 to be completed on 07/23 at which time oral B12 supplementation will be initiated. Folate stable. Monitor anemia periodically. No signs of bleeding. He is high risk for falls, and has a history of SDH. Continues on Plavix and Eliquis. Will recheck labs on 07/22 to monitor blood counts, electrolytes and renal function. Blood pressure variable. Continue to monitor closely. 07/18/17 Psych: Continue current care, attempting to find best balance for patient between treating Parkinson's and minimizing psychosis. Will revisit options after discharge with family after next staffing. 07/19/17 Psych: Again, decreased Sinemet to 12.5mg PO TID - will monitor mood/ behavior and function d/t movement disorder in attempt to find best balance/ timing of Parkinson's meds. 07/20/2017 Pt doing well. Tolerating decrease in Sinemet. Will continue to monitor for psychosis and increase in Parkinsons Symptoms 07/21/2017 Pt a little clearer today. Still has some paranoia at times but appears less bothered by it 07/22/17 CBC and BMP were rechecked today and were stable, hemoglobin was 13.6. Continue vit b12 Occ elevations in bp otherwise medically stable 07/22/17 Psych: Made the following med changes today: Sinemet to 12.5mg PO BID at 0800 and 1300, increase Seroquel to 12.5mg PO BID at 1600 and 2100. Monitor movement vs. anxiety/paranoia in the evenings. Will discuss discharge arrangements (placement vs. home with ) again with family. 07/23/17 Psych: Will discuss medication to target sleep/anxiety with family/DPOA - thinking about mirtazapine vs. SSRI. Plan - 07/24/17 Due to low grade temperature and cough with recent exposure to influenza, patient underwent respiratory testing and revealed positive for Influenza A on . Tamiflu was initiated 07/23/17 to be continued through 07/28/17. CBC and BMP this morning revealed new, mild anemia with hemoglobin at 13.1 and otherwise unremarkable. WBC stable at 7.8. CXR today revealed no acute cardiopulmonary disease or changes. Continue respiratory precautions and isolation given high risk of transmission to other patients. Continue Vitamin B12 supplementation for deficiency. Blood pressure improved with initiation of Norvasc 5mg daily. Continue to monitor closely for hypotension. Continue to encourage good oral intake in light of flu diagnosis and monitor respiratory function closely. 07/25/17 Psych: Continue current care as patient recovers from influenza; monitor for increase in symptoms and may adjust psych meds if needed - doing well so far given medical concerns. 07/26/17 Psych: Start mirtazapine 7.5mg PO q HS. I believe worsening of symptoms is more related to influenza than underlying Parkinson's dementia/psychosis. Will continue to monitor as he recovers from viral illness. Also believe patient will fare better when allowed out of isolation/precautions.
[2017-07-27] MEDS ORDERED: GUAIFENESIN 200mg/10ml ORAL LIQUID PO PRN (00:39)
[2017-07-27] MEDS: MELATONIN 1 MG TABLET PO SCH ×3 (03:51→22:49)
[2017-07-27] MEDS: QUETIAPINE 25 MG TABLET PO SCH ×3 (03:52→20:01)
[2017-07-27] MEDS: MIRTAZAPINE 15 MG TABLET PO SCH ×2 (03:52→19:59)
[2017-07-27] MEDS: AMLODIPINE 5 MG TABLET PO SCH (08:35)
[2017-07-27] MEDS: ATENOLOL 25 MG TABLET PO SCH (08:35)
[2017-07-27] MEDS: APIXABAN 5 MG TABLET PO SCH (08:35)
[2017-07-27] MEDS: MEMANTINE 5 MG TABLET PO SCH (08:36)
[2017-07-27] MEDS: CLOPIDOGREL 75 MG TABLET PO SCH (08:36)
[2017-07-27] MEDS: CYANOCOBALAMIN (B-12) 500mcg TABLET PO SCH (08:36)
[2017-07-27] MEDS: SENNA + DOCUSATE TABLET PO SCH (08:36)
[2017-07-27] MEDS: POLYETHYL GLYCOL 3350 17gm PACKET PO SCH (08:36)
[2017-07-27] MEDS: TAMSULOSIN 0.4 MG CAPSULE PO SCH (08:36)
--- NOTE | 2017-07-27 11:15 | Neuropsych Progress Note ---
[facility] Subjective Date: 07/27/17 - Sujective/Severity of Illness Medications: Acetaminophen (Tylenol) 650 mg PO Q5H PRN PRN Reason: Discomfort Last Admin: 07/24/17 05:04 Dose: 650 mg Albuterol/Ipratropium (Duoneb) 3 ml AEROSOL RTQID PRN Amlodipine Besylate (Norvasc) 5 mg PO DAILY [facility] Last Admin: 07/27/17 08:35 Dose: 5 mg Apixaban (Eliquis) 5 mg PO DAILY [facility] Last Admin: 07/27/17 08:35 Dose: 5 mg Atenolol (Tenormin) 25 mg PO DAILY [facility] Last Admin: 07/27/17 08:35 Dose: 25 mg Carbidopa/Levodopa (Sinemet) 0.5 tab PO [facility] Last Admin: 07/27/17 08:34 Dose: 0.5 tab Clopidogrel Bisulfate (Plavix) 75 mg PO DAILY [facility] Last Admin: 07/27/17 08:36 Dose: 75 mg Cyanocobalamin (Vit. B-12) 1,000 mcg PO DAILY [facility] Last Admin: 07/27/17 08:36 Dose: 1,000 mcg Guaifenesin (Robitussin Liq) 400 mg PO Q6H PRN PRN Reason: Cough /Congestion Lorazepam (Ativan) 0.5 mg PO Q6H PRN PRN Reason: Extreme agitation Last Admin: 07/26/17 19:48 Dose: 0.5 mg Lorazepam (Ativan Inj) 0.5 mg IM Q6H PRN PRN Reason: Extreme agitation Last Admin: 07/14/17 04:04 Dose: 0.5 mg Lorazepam (Ativan Intensol) 0.5 mg SL Q2H PRN Last Admin: 07/25/17 22:44 Dose: 0.5 mg Magnesium Hydroxide (Mom) 30 ml PO DAILY PRN PRN Reason: Constipation Melatonin (Melatonin) 3 mg PO HS [facility] Last Admin: 07/27/17 03:51 Dose: Not Given Memantine (Namenda) 5 mg PO DAILY [facility] Last Admin: 07/27/17 08:36 Dose: 5 mg Mirtazapine (Remeron) 7.5 mg PO HS [facility] Last Admin: 07/27/17 03:52 Dose: Not Given Olanzapine (Zyprexa Zydis) 2.5 mg PO Q6HR PRN PRN Reason: Extreme agitation Last Admin: 07/25/17 21:59 Dose: 2.5 mg Oseltamivir Phosphate (Tamiflu) 75 mg PO BID [facility] Stop: 07/29/17 21:01 Last Admin: 07/27/17 08:36 Dose: 75 mg Polyethylene Glycol (Miralax) 17 gm PO DAILY [facility] Last Admin: 07/27/17 08:36 Dose: 17 gm Quetiapine Fumarate (Seroquel) 12.5 mg PO 16,21 [facility] Last Admin: 07/27/17 03:52 Dose: Not Given Senna/Docusate Sodium (Senna Plus Tablet) 1 tab PO DAILY [facility] Last Admin: 07/27/17 08:36 Dose: 1 tab Senna/Docusate Sodium (Senna Plus Tablet) 1 tab PO BID PRN PRN Reason: Constipation Last Admin: 07/20/17 13:32 Dose: 1 tab Tamsulosin HCl (Flomax) 0.4 mg PO DAILY [facility] Last Admin: 07/27/17 08:36 Dose: 0.4 mg Subjective: Patient seen and chart reviewed. Nursing reports pt is doing better. he did receive Ativan at 1948 for restlessness. he is now off contact precautions and able to leave his room. Slept well and has a good appetite. On face to face the pt is pleasant. He states he is feeling better. He reports his mood is stable. Denies pain. Tolerating meds Start Time: 10:45 Stop Time: 11:00 Mental Status Exam Vitals: Last Vital Signs Temp 97.8 F 07/27/17 08:00 Pulse 59 L 07/27/17 08:00 Resp 18 07/27/17 08:00 BP 155/71 H 07/27/17 08:00 Pulse Ox 96 07/27/17 08:00 Height: 1.65 m Weight: 60.3 kg - Mental Status Exam Muscle Strength/Tone: Rigid (not worsened since admission) Dressing: Casual Grooming: Fair Attitude: Cooperative Motor Activity: Retardation Eye Contact: Fair Speech: Slowed Volume: Soft Rhythm: Appropriate Rhythm Orientation: Disoriented to situation, Oriented to person Mood: Euthymic Rate of Thoughts: Delayed Thought Organization: [place] Associations: Illogical Abstract Reasoning: Poor abstract reasoning Thought Content: Other (focused on d/c; otherwise no abnormal thought content elicited during interview) Perception/Psychotic: Psychotic Current Hallucinations: Visual (reported o/n by staff) Language: Naming Impaired Memory: Poor-immediate, Poor-recent Suicidal Ideation: Denies Homicidal Ideation: Denies Insight: Poor Judgement: Poor Impulse Control: Other (Limited) - Laboratory Result Diagrams: 07/24/17 10:46 07/24/17 10:46 Assessment and Plan (1) Major neurocognitive disorder Problem details: modeate, with behavioral disturbance Parkinson's dementia suspected Current visit: Yes Status: Acute (2) Parkinsons disease Current visit: Yes Status: Acute (3) Atrial fibrillation Current visit: Yes Status: Acute (4) Hypertension Current visit: Yes Status: Acute (5) Coronary artery disease Current visit: Yes Status: Acute Hospital Course Summary Disclaimer: The visit summary below is not to be considered part of the above Progress Note. Hospital Course: Plan - 07/13/17 (Admission) Agree with admission to [facility] for further psychiatric evaluation and treatment. Hospitalist service consulted for medical management. Provide safe and supportive environment. Monitor closely as patient is a high fall risk. CBC and CMP in ED revealed mild macrocytic anemia (Hgb 12.7). Unknown if anemia is acute or chronic. Will asses folate and B12 levels. TSH pending. Will monitor labs periodically throughout admission. Blood pressure elevated on admission. Will continue home medications for a-fib and hypertension. Conflicting atenolol dosages noted with patient's home medication list and verified list from ED. Pharmacy contacted and verified atenolol 25mg daily is correct dose. Will continue home medications. CT head in ED revealed no acute intracranial abnormalities or hemorrhage. Continue chronic anticoagulation with Eliquis. Upon discharge, patient's care will be returned to his PCP, Dr. Carroll. Plan - 07/14/17 Patient remains irritable, unstable mood. Hypersexual with staff. Some of his initial labs are pending. Mild anemia- monitor. He is high risk for falls, and has a hx of SDH. Would consider changing anticoagulation to ASA given bleeding risk. Continue supportive care. 07/16/17 Psych: Decrease Sinemet to 1mg PO TID as it could be contributing to anxiety, agitation, paranoia. Monitor response in regards to mood/affect but also movement. If patient receives PRN Ativan, monitor to ensure there is no paradoxical response as he did not sleep well after PRN last night. Plan - 07/17/17 JW continues to be anxious with agitation and restlessness - mood is unstable. <3 hours of sleep last night and received PRN Ativan. Continue psychiatric care per Dr. Louis and team. Provide safe and supportive environment. Initial labs revealed mild anemia with Hgb 12.7. B12 low at 185. B12 IM initiated on 07/16/17 to be completed on 07/23 at which time oral B12 supplementation will be initiated. Folate stable. Monitor anemia periodically. No signs of bleeding. He is high risk for falls, and has a history of SDH. Continues on Plavix and Eliquis. Will recheck labs on 07/22 to monitor blood counts, electrolytes and renal function. Blood pressure variable. Continue to monitor closely. 07/18/17 Psych: Continue current care, attempting to find best balance for patient between treating Parkinson's and minimizing psychosis. Will revisit options after discharge with family after next staffing. 07/19/17 Psych: Again, decreased Sinemet to 12.5mg PO TID - will monitor mood/ behavior and function d/t movement disorder in attempt to find best balance/ timing of Parkinson's meds. 07/20/2017 Pt doing well. Tolerating decrease in Sinemet. Will continue to monitor for psychosis and increase in Parkinsons Symptoms 07/21/2017 Pt a little clearer today. Still has some paranoia at times but appears less bothered by it 07/22/17 CBC and BMP were rechecked today and were stable, hemoglobin was 13.6. Continue vit b12 Occ elevations in bp otherwise medically stable 07/22/17 Psych: Made the following med changes today: Sinemet to 12.5mg PO BID at 0800 and 1300, increase Seroquel to 12.5mg PO BID at 1600 and 2100. Monitor movement vs. anxiety/paranoia in the evenings. Will discuss discharge arrangements (placement vs. home with ) again with family. 07/23/17 Psych: Will discuss medication to target sleep/anxiety with family/DPOA - thinking about mirtazapine vs. SSRI. Plan - 07/24/17 Due to low grade temperature and cough with recent exposure to influenza, patient underwent respiratory testing and revealed positive for Influenza A on . Tamiflu was initiated 07/23/17 to be continued through 07/28/17. CBC and BMP this morning revealed new, mild anemia with hemoglobin at 13.1 and otherwise unremarkable. WBC stable at 7.8. CXR today revealed no acute cardiopulmonary disease or changes. Continue respiratory precautions and isolation given high risk of transmission to other patients. Continue Vitamin B12 supplementation for deficiency. Blood pressure improved with initiation of Norvasc 5mg daily. Continue to monitor closely for hypotension. Continue to encourage good oral intake in light of flu diagnosis and monitor respiratory function closely. 07/25/17 Psych: Continue current care as patient recovers from influenza; monitor for increase in symptoms and may adjust psych meds if needed - doing well so far given medical concerns. 07/27/17 PT improving. Continue current care
[2017-07-27] MEDS: ACETAMINOPHEN 325 MG TABLET PO PRN ×2 (14:18→20:02)
--- NOTE | 2017-07-27 14:58 | Progress Note ---
- Date 07/27/17 Subjective: Patient was seen lying in bed. I was asked to see patient because he has become weak and was found to have a temp of 99.4. He has recently been diagnosed with influenza and precautions were removed today. Nurses report he was feeling well this morning and went out for lunch in the dining area and sat in the TV room this afternoon. He complained of feeling tired and was assisted back to bed. Nurses report he is much weaker than he usually is. In talking with him, he tells me he is feeling well, however, he does not follow conversation and goes off on different tangents talking quietly. He is quite difficult to understand. Objective Vital signs: Temperature 99.4 F 07/27/17 14:26 Pulse Rate 59 L 07/27/17 08:00 Respiratory Rate 18 07/27/17 08:00 Blood Pressure 155/71 H 07/27/17 08:00 Pulse Oximetry 96 07/27/17 08:00 Height/Weight/BMI: Height 1.65 m Weight 60.3 kg Body Mass Index 22.2 - Constitutional Present: no acute distress, well developed, thin - Routine HEENT Exam Head: Present: normocephalic, atraumatic - Routine Respiratory Exam Present: crackles (LLL). Absent: wheezes - Routine Cardiovascular Exam Present: RRR, murmur - Routine Abdominal Exam Present: soft, non distended, non tender - Routine Extremities Exam Present: no edema, normal capillary refill - Routine Skin Exam Present: dry, warm - Routine Neurological Exam Present: alert, moving all extremities. Absent: normal speech (talks quietly and quickly) - Routine Lymphatic Exam Lymphatic: Absent: adenopathy - Routine Psychiatric Exam Present: normal affect, cooperative Results - Labs CBC & Chem 7: 07/27/17 15:07 07/27/17 15:07 Assessment and Plan (1) Major neurocognitive disorder Problem details: modeate, with behavioral disturbance Parkinson's dementia suspected Current visit: Yes Status: Acute Assessment and Plan: Assessment Dementia with behavioral disorder. Vitamin B12 deficiency Parkinson's disease. Chronic a-fib. Chronic anticoagulation with Eliquis. BPH. Hypertension. CAD. Influenza A - NEW DIAGNOSIS 07/23/17. Mild anemia - NEW DIAGNOSIS 07/24/17. Plan - 07/27/17 Given the change in his status, will check a CBC, BMP and a CXR. Could be residual influenza sxs, but at risk for complication such as a bacterial pneumonia. Further orders to be determined once labs and CXR are resulted. - Physician Narrative Physician: Terry Ayala MD Narrative: Date: 07/27/17 Time: 1730 I have independently evaluated and examined this patient. I reviewed the chart, the patient's history, and the TOBACCO PACKER/PA's documented findings as above. We discussed and formulated the assessment and plan as above with additions as below: Patient was up in his room after spilling some tea. He staggered when trying to take a couple of steps. He denies having had influenza and does not accept that he is weaker. Patient helped back to bed and nursing informed. NAD. IR,IR. CTAB. S/NT/ND +BS. No edema. Gait unsteady Fall risk precautions will be in place per nurse. Patient would benefit from PT/ OT if that can be arranged. Lab unremarkable. CXR reviewed. Patient is rotated but no acute changes seen. Hospital Course Summary Disclaimer: The visit summary below is not to be considered part of the above Progress Note.
[2017-07-27] MEDS: LORazepam 0.5 MG TABLET PO PRN (21:57)
[2017-07-28] MEDS: CYANOCOBALAMIN (B-12) 500mcg TABLET PO SCH (08:06)
[2017-07-28] MEDS: CLOPIDOGREL 75 MG TABLET PO SCH (08:06)
[2017-07-28] MEDS: APIXABAN 5 MG TABLET PO SCH (08:06)
[2017-07-28] MEDS: TAMSULOSIN 0.4 MG CAPSULE PO SCH (08:07)
[2017-07-28] MEDS: ATENOLOL 25 MG TABLET PO SCH (08:07)
[2017-07-28] MEDS: MEMANTINE 5 MG TABLET PO SCH (08:07)
[2017-07-28] MEDS: SENNA + DOCUSATE TABLET PO SCH (08:08)
[2017-07-28] MEDS: POLYETHYL GLYCOL 3350 17gm PACKET PO SCH (08:09)
[2017-07-28] MEDS: AMLODIPINE 5 MG TABLET PO SCH (08:09)
--- NOTE | 2017-07-28 09:05 | XRay Report ---
Indication: fever, cough PROCEDURE: XR chest 1V: Encounter: Initial Comparison: July 24, 2017 FINDINGS: The lungs are clear. There is no abnormal airspace opacity, pleural effusion or pneumothorax identified. The heart size, pulmonary vasculature and mediastinum are stable. Left pacemaker. IMPRESSION: No acute cardiopulmonary abnormality. There is a preliminary report by virtual radiologic. .
--- NOTE | 2017-07-28 13:47 | Neuropsych Progress Note ---
[facility] Subjective Date: 07/28/17 - Sujective/Severity of Illness Medications: Acetaminophen (Tylenol) 650 mg PO Q5H PRN PRN Reason: Discomfort Last Admin: 07/27/17 20:02 Dose: 650 mg Albuterol/Ipratropium (Duoneb) 3 ml AEROSOL RTQID PRN Amlodipine Besylate (Norvasc) 5 mg PO DAILY [facility] Last Admin: 07/28/17 08:09 Dose: 5 mg Apixaban (Eliquis) 5 mg PO DAILY [facility] Last Admin: 07/28/17 08:06 Dose: 5 mg Atenolol (Tenormin) 25 mg PO DAILY [facility] Last Admin: 07/28/17 08:07 Dose: 25 mg Carbidopa/Levodopa (Sinemet) 0.5 tab PO 08,13 [facility] Last Admin: 07/28/17 08:06 Dose: 0.5 tab Clopidogrel Bisulfate (Plavix) 75 mg PO DAILY [facility] Last Admin: 07/28/17 08:06 Dose: 75 mg Cyanocobalamin (Vit. B-12) 1,000 mcg PO DAILY [facility] Last Admin: 07/28/17 08:06 Dose: 1,000 mcg Guaifenesin (Robitussin Liq) 400 mg PO Q6H PRN PRN Reason: Cough /Congestion Last Admin: 07/27/17 14:18 Dose: 400 mg Lorazepam (Ativan) 0.5 mg PO Q6H PRN PRN Reason: Extreme agitation Last Admin: 07/27/17 21:57 Dose: 0.5 mg Lorazepam (Ativan Inj) 0.5 mg IM Q6H PRN PRN Reason: Extreme agitation Last Admin: 07/14/17 04:04 Dose: 0.5 mg Lorazepam (Ativan Intensol) 0.5 mg SL Q2H PRN Last Admin: 07/25/17 22:44 Dose: 0.5 mg Magnesium Hydroxide (Mom) 30 ml PO DAILY PRN PRN Reason: Constipation Melatonin (Melatonin) 3 mg PO HS [facility] Last Admin: 07/27/17 22:49 Dose: Not Given Memantine (Namenda) 5 mg PO DAILY [facility] Last Admin: 07/28/17 08:07 Dose: 5 mg Mirtazapine (Remeron) 7.5 mg PO HS [facility] Last Admin: 02/03/18 19:59 Dose: 7.5 mg Olanzapine (Zyprexa Zydis) 2.5 mg PO Q6HR PRN PRN Reason: Extreme agitation Last Admin: 07/25/17 21:59 Dose: 2.5 mg Oseltamivir Phosphate (Tamiflu) 75 mg PO BID [facility] Stop: 07/29/17 21:01 Last Admin: 07/28/17 08:09 Dose: 75 mg Polyethylene Glycol (Miralax) 17 gm PO DAILY [facility] Last Admin: 07/28/17 08:09 Dose: Not Given Quetiapine Fumarate (Seroquel) 12.5 mg PO 16,21 [facility] Last Admin: 07/27/17 20:01 Dose: 12.5 mg Senna/Docusate Sodium (Senna Plus Tablet) 1 tab PO DAILY [facility] Last Admin: 07/28/17 08:08 Dose: 1 tab Senna/Docusate Sodium (Senna Plus Tablet) 1 tab PO BID PRN PRN Reason: Constipation Last Admin: 07/20/17 13:32 Dose: 1 tab Tamsulosin HCl (Flomax) 0.4 mg PO DAILY [facility] Last Admin: 07/28/17 08:07 Dose: 0.4 mg Subjective: Patient seen and chart reviewed. Nursing reports pt continues to improve. Restless at times but is redirectable. Sleeping and eating well. On face to face the pt states he is doing well. He is pleasant. Reports his mood is stable. Tolerating meds. Requesting to go home. No concerns Start Time: 11:15 Stop Time: 11:30 Mental Status Exam Vitals: Last Vital Signs Temp 97.8 F 07/28/17 08:00 Pulse 62 07/28/17 08:00 Resp 18 07/28/17 08:00 BP 125/68 07/28/17 08:00 Pulse Ox 96 07/28/17 08:00 Height: 1.65 m Weight: 60.3 kg - Mental Status Exam Muscle Strength/Tone: Rigid (not worsened since admission) Dressing: Casual Grooming: Fair Attitude: Cooperative Motor Activity: Retardation, Tremors Eye Contact: Fair Speech: Slowed Volume: Soft Rhythm: Appropriate Rhythm Orientation: Disoriented to situation, Oriented to person Mood: Neutral Rate of Thoughts: Delayed Thought Organization: [place] Associations: Illogical (at times) Abstract Reasoning: Poor abstract reasoning Thought Content: Other (morbid thought content shared with staff o/n) Perception/Psychotic: Psychotic Current Hallucinations: Visual (reported o/n by staff) Language: Naming Impaired Memory: Poor-immediate, Poor-recent Suicidal Ideation: Denies Homicidal Ideation: Denies Insight: Poor Judgement: Poor Impulse Control: Other (Limited) - Laboratory Result Diagrams: 07/27/17 15:07 07/27/17 15:07 Laboratory Results - last 24 hr 07/27/17 07/27/17 15:07 15:07 WBC 7.6 RBC 4.20 L Hgb 13.1 L Hct 41.5 MCV 98.8 MCH 31.2 MCHC 31.6 RDW Std Deviation 51.5 H Plt Count 218 MPV 10.0 Immature Gran % (Auto) 0.5 Neut % (Auto) 67.5 H Lymph % (Auto) 18.5 L [place] % (Auto) 9.8 H Eos % (Auto) 3.2 Baso % (Auto) 0.5 Neut # (Auto) 5.1 Lymph # (Auto) 1.4 [place] # (Auto) 0.7 Eos # (Auto) 0.2 Baso # (Auto) 0.0 Abs Immat Gran (auto) 0.04 H Turbidity < 20 Sodium 139 Potassium 4.0 Chloride 105 Carbon Dioxide 27 Anion Gap 7 BUN 18.0 Creatinine 0.8 GFR Calculation 93 BUN/Creatinine Ratio 23 Glucose 115 H Calculated Osmolality 271 Calcium 9.3 Icterus Index < 2 Specimen Hemolysis < 15 Assessment and Plan (1) Major neurocognitive disorder Problem details: modeate, with behavioral disturbance Parkinson's dementia suspected Current visit: Yes Status: Acute (2) Parkinsons disease Current visit: Yes Status: Acute (3) Atrial fibrillation Current visit: Yes Status: Acute (4) Hypertension Current visit: Yes Status: Acute (5) Coronary artery disease Current visit: Yes Status: Acute Hospital Course Summary Disclaimer: The visit summary below is not to be considered part of the above Progress Note. Hospital Course: Plan - 07/13/17 (Admission) Agree with admission to [facility] for further psychiatric evaluation and treatment. Hospitalist service consulted for medical management. Provide safe and supportive environment. Monitor closely as patient is a high fall risk. CBC and CMP in ED revealed mild macrocytic anemia (Hgb 12.7). Unknown if anemia is acute or chronic. Will asses folate and B12 levels. TSH pending. Will monitor labs periodically throughout admission. Blood pressure elevated on admission. Will continue home medications for a-fib and hypertension. Conflicting atenolol dosages noted with patient's home medication list and verified list from ED. Pharmacy contacted and verified atenolol 25mg daily is correct dose. Will continue home medications. CT head in ED revealed no acute intracranial abnormalities or hemorrhage. Continue chronic anticoagulation with Eliquis. Upon discharge, patient's care will be returned to his PCP, Dr. Carroll. Plan - 07/14/17 Patient remains irritable, unstable mood. Hypersexual with staff. Some of his initial labs are pending. Mild anemia- monitor. He is high risk for falls, and has a hx of SDH. Would consider changing anticoagulation to ASA given bleeding risk. Continue supportive care. 07/16/17 Psych: Decrease Sinemet to 1mg PO TID as it could be contributing to anxiety, agitation, paranoia. Monitor response in regards to mood/affect but also movement. If patient receives PRN Ativan, monitor to ensure there is no paradoxical response as he did not sleep well after PRN last night. Plan - 07/17/17 JW continues to be anxious with agitation and restlessness - mood is unstable. <3 hours of sleep last night and received PRN Ativan. Continue psychiatric care per Dr. Louis and team. Provide safe and supportive environment. Initial labs revealed mild anemia with Hgb 12.7. B12 low at 185. B12 IM initiated on 07/16/17 to be completed on 07/23 at which time oral B12 supplementation will be initiated. Folate stable. Monitor anemia periodically. No signs of bleeding. He is high risk for falls, and has a history of SDH. Continues on Plavix and Eliquis. Will recheck labs on 07/22 to monitor blood counts, electrolytes and renal function. Blood pressure variable. Continue to monitor closely. 07/18/17 Psych: Continue current care, attempting to find best balance for patient between treating Parkinson's and minimizing psychosis. Will revisit options after discharge with family after next staffing. 07/19/17 Psych: Again, decreased Sinemet to 12.5mg PO TID - will monitor mood/ behavior and function d/t movement disorder in attempt to find best balance/ timing of Parkinson's meds. 07/20/2017 Pt doing well. Tolerating decrease in Sinemet. Will continue to monitor for psychosis and increase in Parkinsons Symptoms 07/21/2017 Pt a little clearer today. Still has some paranoia at times but appears less bothered by it 07/22/17 CBC and BMP were rechecked today and were stable, hemoglobin was 13.6. Continue vit b12 Occ elevations in bp otherwise medically stable 07/22/17 Psych: Made the following med changes today: Sinemet to 12.5mg PO BID at 0800 and 1300, increase Seroquel to 12.5mg PO BID at 1600 and 2100. Monitor movement vs. anxiety/paranoia in the evenings. Will discuss discharge arrangements (placement vs. home with ) again with family. 07/23/17 Psych: Will discuss medication to target sleep/anxiety with family/DPOA - thinking about mirtazapine vs. SSRI. Plan - 07/24/17 Due to low grade temperature and cough with recent exposure to influenza, patient underwent respiratory testing and revealed positive for Influenza A on . Tamiflu was initiated 07/23/17 to be continued through 07/28/17. CBC and BMP this morning revealed new, mild anemia with hemoglobin at 13.1 and otherwise unremarkable. WBC stable at 7.8. CXR today revealed no acute cardiopulmonary disease or changes. Continue respiratory precautions and isolation given high risk of transmission to other patients. Continue Vitamin B12 supplementation for deficiency. Blood pressure improved with initiation of Norvasc 5mg daily. Continue to monitor closely for hypotension. Continue to encourage good oral intake in light of flu diagnosis and monitor respiratory function closely. 07/25/17 Psych: Continue current care as patient recovers from influenza; monitor for increase in symptoms and may adjust psych meds if needed - doing well so far given medical concerns. 07/26/17 Psych: Start mirtazapine 7.5mg PO q HS. I believe worsening of symptoms is more related to influenza than underlying Parkinson's dementia/psychosis. Will continue to monitor as he recovers from viral illness. Also believe patient will fare better when allowed out of isolation/precautions. 07/28/17 Psych: PT continues to improve. Continue current care
[2017-07-28] MEDS: QUETIAPINE 25 MG TABLET PO SCH ×2 (17:19→22:36)
[2017-07-28] MEDS: MELATONIN 1 MG TABLET PO SCH ×2 (19:42→22:36)
[2017-07-28] MEDS: MIRTAZAPINE 15 MG TABLET PO SCH ×2 (19:43→22:36)
[2017-07-28] MEDS: OLANZapine ODT 5 MG TABLET PO PRN (19:54)
[2017-07-28] MEDS: LORazepam INTENSOL 1mg/0.5ml ORAL LIQUID SL PRN (22:37)
[2017-07-29] MEDS: SENNA + DOCUSATE TABLET PO SCH (08:55)
[2017-07-29] MEDS: AMLODIPINE 5 MG TABLET PO SCH (08:55)
[2017-07-29] MEDS: TAMSULOSIN 0.4 MG CAPSULE PO SCH (08:55)
[2017-07-29] MEDS: MEMANTINE 5 MG TABLET PO SCH (08:55)
[2017-07-29] MEDS: ATENOLOL 25 MG TABLET PO SCH (08:55)
[2017-07-29] MEDS: CLOPIDOGREL 75 MG TABLET PO SCH (08:55)
[2017-07-29] MEDS: APIXABAN 5 MG TABLET PO SCH (08:55)
[2017-07-29] MEDS: CYANOCOBALAMIN (B-12) 500mcg TABLET PO SCH (08:55)
[2017-07-29] MEDS: POLYETHYL GLYCOL 3350 17gm PACKET PO SCH (08:56)
--- NOTE | 2017-07-29 11:07 | XRay Report ---
Indication: mental status change PROCEDURE: XR chest 1V: Encounter: Initial Comparison: 07/27/2017 Findings: The examination is slightly expiratory in nature with bibasilar somewhat discoid atelectasis. There is a left subclavian dual-lead pacemaker in place. There is mild prominence of the cardiac silhouette which is probably accentuated by the AP portable technique. Trachea is midline. No subdiaphragmatic free air. No lobar consolidation or pleural effusion. Impression: Bibasilar atelectasis with overall expiratory technique. .
--- NOTE | 2017-07-29 14:18 | Neuropsych Progress Note ---
[facility] Subjective Date: 07/29/17 - Sujective/Severity of Illness Medications: Acetaminophen (Tylenol) 650 mg PO Q5H PRN PRN Reason: Discomfort Last Admin: 07/27/17 20:02 Dose: 650 mg Albuterol/Ipratropium (Duoneb) 3 ml AEROSOL RTQID PRN Amlodipine Besylate (Norvasc) 5 mg PO DAILY [facility] Last Admin: 07/29/17 08:55 Dose: 5 mg Apixaban (Eliquis) 5 mg PO DAILY [facility] Last Admin: 07/29/17 08:55 Dose: 5 mg Atenolol (Tenormin) 25 mg PO DAILY [facility] Last Admin: 07/29/17 08:55 Dose: 25 mg Carbidopa/Levodopa (Sinemet) 0.5 tab PO 08,13 [facility] Last Admin: 07/29/17 12:07 Dose: Not Given Clopidogrel Bisulfate (Plavix) 75 mg PO DAILY [facility] Last Admin: 07/29/17 08:55 Dose: 75 mg Cyanocobalamin (Vit. B-12) 1,000 mcg PO DAILY [facility] Last Admin: 07/29/17 08:55 Dose: 1,000 mcg Guaifenesin (Robitussin Liq) 400 mg PO Q6H PRN PRN Reason: Cough /Congestion Last Admin: 07/27/17 14:18 Dose: 400 mg Lorazepam (Ativan) 0.5 mg PO Q6H PRN PRN Reason: Extreme agitation Last Admin: 07/27/17 21:57 Dose: 0.5 mg Lorazepam (Ativan Inj) 0.5 mg IM Q6H PRN PRN Reason: Extreme agitation Last Admin: 07/14/17 04:04 Dose: 0.5 mg Lorazepam (Ativan Intensol) 0.5 mg SL Q2H PRN Last Admin: 07/28/17 22:37 Dose: 0.5 mg Magnesium Hydroxide (Mom) 30 ml PO DAILY PRN PRN Reason: Constipation Melatonin (Melatonin) 3 mg PO HS [facility] Last Admin: 07/28/17 22:36 Dose: Not Given Memantine (Namenda) 5 mg PO DAILY [facility] Last Admin: 07/29/17 08:55 Dose: 5 mg Mirtazapine (Remeron) 7.5 mg PO HS [facility] Last Admin: 07/28/17 22:36 Dose: Not Given Olanzapine (Zyprexa Zydis) 2.5 mg PO Q6HR PRN PRN Reason: Extreme agitation Last Admin: 07/28/17 19:54 Dose: 2.5 mg Oseltamivir Phosphate (Tamiflu) 75 mg PO BID [facility] Stop: 07/29/17 21:01 Last Admin: 07/29/17 08:55 Dose: 75 mg Polyethylene Glycol (Miralax) 17 gm PO DAILY [facility] Last Admin: 07/29/17 08:56 Dose: 17 gm Quetiapine Fumarate (Seroquel) 12.5 mg PO 16,21 [facility] Last Admin: 07/28/17 22:36 Dose: Not Given Senna/Docusate Sodium (Senna Plus Tablet) 1 tab PO DAILY [facility] Last Admin: 07/29/17 08:55 Dose: 1 tab Senna/Docusate Sodium (Senna Plus Tablet) 1 tab PO BID PRN PRN Reason: Constipation Last Admin: 07/20/17 13:32 Dose: 1 tab Tamsulosin HCl (Flomax) 0.4 mg PO DAILY [facility] Last Admin: 07/29/17 08:55 Dose: 0.4 mg Subjective: Patient seen and chart reviewed. Case discussed with treatment team. On interview, patient is pleasant though confused and oriented to self only. He reports his mood is "wonderful" and denies any physical complaints. Has slight tremor only and rigidity unchanged from admission despite change in Parkinson's medication. Patient denies any SI, HI or AVH. Patient denies any adverse side effects related to psychotropic medications. Nursing staff report patient has had intermittent cough/fever again, and then was 1:1 and restless most of the night - they reported no sleep whatsoever. Patient was also observed picking things out of air, likely due to delirium. Patient has been adherent with medications. BP has been elevated - will defer to hospitalist in this regard. Patient is eating well. Psychotropic PRNs required in the past 24 hours: Zyprexa 2.5mg PO at 1955. Start Time: 10:00 Stop Time: 10:20 Mental Status Exam Vitals: Last Vital Signs Temp 99.2 F 07/29/17 08:00 Pulse 80 07/29/17 08:00 Resp 16 07/29/17 08:00 BP 179/84 H 07/29/17 08:00 Pulse Ox 93 07/29/17 08:00 Height: 1.65 m Weight: 60.3 kg - Mental Status Exam Muscle Strength/Tone: Rigid (not worsened since admission) Dressing: Casual Grooming: Fair Attitude: Cooperative Motor Activity: Retardation, Tremors Eye Contact: Fair Speech: Slowed Volume: Soft Rhythm: Appropriate Rhythm Orientation: Disoriented to time, Disoriented to situation, Oriented to person Mood: Neutral Affect: Relaxed (during interview, frequently restless during day) Rate of Thoughts: Delayed Thought Organization: [place] Associations: Illogical (at times) Abstract Reasoning: Poor abstract reasoning Thought Content: Normal Perception/Psychotic: Psychotic Current Hallucinations: Visual (reported o/n by staff) Language: [place] Impaired Memory: Poor-immediate, Poor-recent Suicidal Ideation: Denies Homicidal Ideation: Denies Insight: Poor Judgement: Poor Impulse Control: Other (Limited) - Laboratory Result Diagrams: 07/29/17 10:44 07/29/17 10:44 Laboratory Results - last 24 hr 07/29/17 07/29/17 07/29/17 10:44 10:44 11:49 WBC 9.6 RBC 4.84 Hgb 15.0 D Hct 47.8 D MCV 98.8 MCH 31.0 MCHC 31.4 RDW Std Deviation 51.1 H Plt Count 265 MPV 9.7 Neutrophils % (Manual) 76.0 H Lymphocytes % (Manual) 18.0 L Monocytes % (Manual) 5.0 Basophils % (Manual) 1.0 Neutrophils # (Manual) 7.3 Lymphocytes # (Manual) 1.7 Monocytes # (Manual) 0.5 Basophils # (Manual) 0.1 RBC Morph Comment Normal Turbidity < 20 Sodium 142 Potassium 4.4 Chloride 106 Carbon Dioxide 24 Anion Gap 12 BUN 13.0 Creatinine 0.7 L GFR Calculation 109 BUN/Creatinine Ratio 19 Glucose 114 H Calculated Osmolality 274 Calcium 9.8 Total Bilirubin 0.50 Icterus Index < 2 AST 35 ALT 17 L Alkaline Phosphatase 68 Total Protein 7.6 Albumin 4.5 Globulin 3.1 Albumin/Globulin Ratio 1.5 Specimen Hemolysis 56 H Ur Collection Type Urine, void-cc/notcc Urine Color Yellow Urine Clarity Clear Urine pH 6.0 Ur Specific [place] 1.020 Urine Protein Negative Urine Glucose (UA) Negative Urine Ketones Negative Urine Occult Blood Negative Urine Nitrate Negative Urine Bilirubin Negative Urine Urobilinogen 0.2 Ur Leukocyte Esterase Negative Urinalysis Comment Microscopic not ind. Assessment and Plan (1) Major neurocognitive disorder Problem details: modeate, with behavioral disturbance Parkinson's dementia suspected Current visit: Yes Status: Acute (2) Parkinsons disease Current visit: Yes Status: Acute (3) Atrial fibrillation Current visit: Yes Status: Acute (4) Hypertension Current visit: Yes Status: Acute (5) Coronary artery disease Current visit: Yes Status: Acute Suspect continued delirium given constellation of symptoms and recent fever/ cough - will request CBC, CMP, repeat CXR and UA today before further changes made to psychotropic meds. Hospital Course Summary Disclaimer: The visit summary below is not to be considered part of the above Progress Note. Hospital Course: Plan - 07/13/17 (Admission) Agree with admission to [facility] for further psychiatric evaluation and treatment. Hospitalist service consulted for medical management. Provide safe and supportive environment. Monitor closely as patient is a high fall risk. CBC and CMP in ED revealed mild macrocytic anemia (Hgb 12.7). Unknown if anemia is acute or chronic. Will asses folate and B12 levels. TSH pending. Will monitor labs periodically throughout admission. Blood pressure elevated on admission. Will continue home medications for a-fib and hypertension. Conflicting atenolol dosages noted with patient's home medication list and verified list from ED. Pharmacy contacted and verified atenolol 25mg daily is correct dose. Will continue home medications. CT head in ED revealed no acute intracranial abnormalities or hemorrhage. Continue chronic anticoagulation with Eliquis. Upon discharge, patient's care will be returned to his PCP, Dr. Carroll. Plan - 07/14/17 Patient remains irritable, unstable mood. Hypersexual with staff. Some of his initial labs are pending. Mild anemia- monitor. He is high risk for falls, and has a hx of SDH. Would consider changing anticoagulation to ASA given bleeding risk. Continue supportive care. 07/16/17 Psych: Decrease Sinemet to 1mg PO TID as it could be contributing to anxiety, agitation, paranoia. Monitor response in regards to mood/affect but also movement. If patient receives PRN Ativan, monitor to ensure there is no paradoxical response as he did not sleep well after PRN last night. Plan - 07/17/17 JW continues to be anxious with agitation and restlessness - mood is unstable. <3 hours of sleep last night and received PRN Ativan. Continue psychiatric care per Dr. Louis and team. Provide safe and supportive environment. Initial labs revealed mild anemia with Hgb 12.7. B12 low at 185. B12 IM initiated on 07/16/17 to be completed on 07/23 at which time oral B12 supplementation will be initiated. Folate stable. Monitor anemia periodically. No signs of bleeding. He is high risk for falls, and has a history of SDH. Continues on Plavix and Eliquis. Will recheck labs on 07/22 to monitor blood counts, electrolytes and renal function. Blood pressure variable. Continue to monitor closely. 07/18/17 Psych: Continue current care, attempting to find best balance for patient between treating Parkinson's and minimizing psychosis. Will revisit options after discharge with family after next staffing. 07/19/17 Psych: Again, decreased Sinemet to 12.5mg PO TID - will monitor mood/ behavior and function d/t movement disorder in attempt to find best balance/ timing of Parkinson's meds. 07/20/2017 Pt doing well. Tolerating decrease in Sinemet. Will continue to monitor for psychosis and increase in Parkinsons Symptoms 07/21/2017 Pt a little clearer today. Still has some paranoia at times but appears less bothered by it 07/22/17 CBC and BMP were rechecked today and were stable, hemoglobin was 13.6. Continue vit b12 Occ elevations in bp otherwise medically stable 07/22/17 Psych: Made the following med changes today: Sinemet to 12.5mg PO BID at 0800 and 1300, increase Seroquel to 12.5mg PO BID at 1600 and 2100. Monitor movement vs. anxiety/paranoia in the evenings. Will discuss discharge arrangements (placement vs. home with ) again with family. 07/23/17 Psych: Will discuss medication to target sleep/anxiety with family/DPOA - thinking about mirtazapine vs. SSRI. Plan - 07/24/17 Due to low grade temperature and cough with recent exposure to influenza, patient underwent respiratory testing and revealed positive for Influenza A on . Tamiflu was initiated 07/23/17 to be continued through 07/28/17. CBC and BMP this morning revealed new, mild anemia with hemoglobin at 13.1 and otherwise unremarkable. WBC stable at 7.8. CXR today revealed no acute cardiopulmonary disease or changes. Continue respiratory precautions and isolation given high risk of transmission to other patients. Continue Vitamin B12 supplementation for deficiency. Blood pressure improved with initiation of Norvasc 5mg daily. Continue to monitor closely for hypotension. Continue to encourage good oral intake in light of flu diagnosis and monitor respiratory function closely. 07/25/17 Psych: Continue current care as patient recovers from influenza; monitor for increase in symptoms and may adjust psych meds if needed - doing well so far given medical concerns. 07/26/17 Psych: Start mirtazapine 7.5mg PO q HS. I believe worsening of symptoms is more related to influenza than underlying Parkinson's dementia/psychosis. Will continue to monitor as he recovers from viral illness. Also believe patient will fare better when allowed out of isolation/precautions. 07/28/17 Psych: PT continues to improve. Continue current care. 07/29/17 Psych: Suspect continued delirium given constellation of symptoms and recent fever/cough - will request CBC, CMP, repeat CXR and UA today before further changes made to psychotropic meds.
--- NOTE | 2017-07-29 15:54 | Progress Note ---
- Date 07/29/17 Subjective: Patient is seen sitting in the day room. He reports he feels "terrific." He does admit that he has been coughing, but that it does not bother him. Staff has reported that he appears to have delirium. Psychiatrist ordered labs, UA and chest x-ray which were all essentially negative. He has 1 dose left of Tamiflu. Objective Vital signs: Temperature 99.2 F 07/29/17 15:38 Pulse Rate 62 07/29/17 15:38 Respiratory Rate 16 07/29/17 15:38 Blood Pressure 146/69 H 07/29/17 15:38 Pulse Oximetry 97 07/29/17 15:38 Height/Weight/BMI: Height 1.65 m Weight 60.3 kg Body Mass Index 22.2 - Constitutional Present: no acute distress, well nourished, well developed - Routine HEENT Exam Head: Present: normocephalic, atraumatic - Routine Respiratory Exam Present: CTA bilaterally. Absent: wheezes - Routine Cardiovascular Exam Present: RRR, no murmur - Routine Abdominal Exam Present: soft, non distended, non tender - Routine Extremities Exam Present: no edema, normal capillary refill - Routine Skin Exam Present: dry, warm Comments: Diffuse maculopapular rash on back. No sign of infection. No vesicular lesions. - Routine Neurological Exam Present: alert. Absent: oriented X3 - Routine Lymphatic Exam Lymphatic: Absent: adenopathy - Routine Psychiatric Exam Present: cooperative Results - Labs CBC & Chem 7: 07/29/17 10:44 07/29/17 10:44 Labs: Urinalysis essentially negative - Imaging and Cardiology Chest x-ray Additional comments: Date of Exam: 07/29/17 Indication: mental status change PROCEDURE: XR chest 1V: Findings: The examination is slightly expiratory in nature with bibasilar somewhat discoid atelectasis. There is a left subclavian dual-lead pacemaker in place. There is mild prominence of the cardiac silhouette which is probably accentuated by the AP portable technique. Trachea is midline. No subdiaphragmatic free air. No lobar consolidation or pleural effusion. Impression: Bibasilar atelectasis with overall expiratory technique. Assessment and Plan (1) Major neurocognitive disorder Problem details: modeate, with behavioral disturbance Parkinson's dementia suspected Current visit: Yes Status: Acute Assessment and Plan: Assessment Dementia with behavioral disorder. Vitamin B12 deficiency Parkinson's disease. Chronic a-fib. Chronic anticoagulation with Eliquis. BPH. Hypertension. CAD. Influenza A - NEW DIAGNOSIS 07/23/17. Mild anemia - NEW DIAGNOSIS 07/24/17. Rash (back) - new diagnosis 07/29/17 Plan Repeat CBC, BMP, CXR and urinalysis ordered by psychiatrist were essentially negative. No new physical explanation for his delirium. Potentially could be residual from his influenza illness versus side effect Tamiflu. As he was on prophylactic dosing prior to starting his treatment dose, will go ahead and discontinue Tamiflu now in the event this could be contributing to his delirium. Hydrocortisone cream for his rash. - Physician Narrative Narrative: Date: 07/29/17 Time: 1551 Hospital Course Summary Disclaimer: The visit summary below is not to be considered part of the above Progress Note. Hospital Course: Plan - 07/13/17 (Admission) Agree with admission to [facility] for further psychiatric evaluation and treatment. Hospitalist service consulted for medical management. Provide safe and supportive environment. Monitor closely as patient is a high fall risk. CBC and CMP in ED revealed mild macrocytic anemia (Hgb 12.7). Unknown if anemia is acute or chronic. Will asses folate and B12 levels. TSH pending. Will monitor labs periodically throughout admission. Blood pressure elevated on admission. Will continue home medications for a-fib and hypertension. Conflicting atenolol dosages noted with patient's home medication list and verified list from ED. Pharmacy contacted and verified atenolol 25mg daily is correct dose. Will continue home medications. CT head in ED revealed no acute intracranial abnormalities or hemorrhage. Continue chronic anticoagulation with Eliquis. Upon discharge, patient's care will be returned to his PCP, Dr. Carroll. Plan - 07/14/17 Patient remains irritable, unstable mood. Hypersexual with staff. Some of his initial labs are pending. Mild anemia- monitor. He is high risk for falls, and has a hx of SDH. Would consider changing anticoagulation to ASA given bleeding risk. Continue supportive care. 07/16/17 Psych: Decrease Sinemet to 1mg PO TID as it could be contributing to anxiety, agitation, paranoia. Monitor response in regards to mood/affect but also movement. If patient receives PRN Ativan, monitor to ensure there is no paradoxical response as he did not sleep well after PRN last night. Plan - 07/17/17 JW continues to be anxious with agitation and restlessness - mood is unstable. <3 hours of sleep last night and received PRN Ativan. Continue psychiatric care per Dr. Louis and team. Provide safe and supportive environment. Initial labs revealed mild anemia with Hgb 12.7. B12 low at 185. B12 IM initiated on 07/16/17 to be completed on 07/23 at which time oral B12 supplementation will be initiated. Folate stable. Monitor anemia periodically. No signs of bleeding. He is high risk for falls, and has a history of SDH. Continues on Plavix and Eliquis. Will recheck labs on 07/22 to monitor blood counts, electrolytes and renal function. Blood pressure variable. Continue to monitor closely. 07/18/17 Psych: Continue current care, attempting to find best balance for patient between treating Parkinson's and minimizing psychosis. Will revisit options after discharge with family after next staffing. 07/19/17 Psych: Again, decreased Sinemet to 12.5mg PO TID - will monitor mood/ behavior and function d/t movement disorder in attempt to find best balance/ timing of Parkinson's meds. 07/20/2017 Pt doing well. Tolerating decrease in Sinemet. Will continue to monitor for psychosis and increase in Parkinsons Symptoms 07/21/2017 Pt a little clearer today. Still has some paranoia at times but appears less bothered by it 07/22/17 CBC and BMP were rechecked today and were stable, hemoglobin was 13.6. Continue vit b12 Occ elevations in bp otherwise medically stable 07/22/17 Psych: Made the following med changes today: Sinemet to 12.5mg PO BID at 0800 and 1300, increase Seroquel to 12.5mg PO BID at 1600 and 2100. Monitor movement vs. anxiety/paranoia in the evenings. Will discuss discharge arrangements (placement vs. home with ) again with family. 07/23/17 Psych: Will discuss medication to target sleep/anxiety with family/DPOA - thinking about mirtazapine vs. SSRI. 07/24/17 Hospitalist consult: Due to low grade temperature and cough with recent exposure to influenza, patient underwent respiratory testing and revealed positive for Influenza A on 07/23/17. Tamiflu was initiated 07/23/17 to be continued through 07/28/17. CBC and BMP this morning revealed new, mild anemia with hemoglobin at 13.1 and otherwise unremarkable. WBC stable at 7.8. CXR today revealed no acute cardiopulmonary disease or changes. Continue respiratory precautions and isolation given high risk of transmission to other patients. Continue Vitamin B12 supplementation for deficiency. Blood pressure improved with initiation of Norvasc 5mg daily. Continue to monitor closely for hypotension. Continue to encourage good oral intake in light of flu diagnosis and monitor respiratory function closely. 07/25/17 Psych: Continue current care as patient recovers from influenza; monitor for increase in symptoms and may adjust psych meds if needed - doing well so far given medical concerns. 07/26/17 Psych: Start mirtazapine 7.5mg PO q HS. I believe worsening of symptoms is more related to influenza than underlying Parkinson's dementia/psychosis. Will continue to monitor as he recovers from viral illness. Also believe patient will fare better when allowed out of isolation/precautions. 07/28/17 Psych: PT continues to improve. Continue current care. 07/29/17 Psych: Suspect continued delirium given constellation of symptoms and recent fever/cough - will request CBC, CMP, repeat CXR and UA today before further changes made to psychotropic meds. 07/29/17 Hospitalist: Repeat CBC, BMP, CXR and urinalysis ordered by psychiatrist were essentially negative. No new physical explanation for his delirium. Potentially could be residual from his influenza illness versus side effect Tamiflu. As he was on prophylactic dosing prior to starting his treatment dose, will go ahead and discontinue Tamiflu now in the event this could be contributing to his delirium. Hydrocortisone cream for his rash
[2017-07-29] MEDS ORDERED: HYDROCORTISONE 1% CREAM 28.35gm TOP PRN (15:59)
[2017-07-29] MEDS: QUETIAPINE 25 MG TABLET PO SCH ×3 (17:46→21:54)
[2017-07-29] MEDS: MIRTAZAPINE 15 MG TABLET PO SCH ×2 (19:51→21:54)
[2017-07-29] MEDS: MELATONIN 1 MG TABLET PO SCH ×2 (19:52→21:54)
[2017-07-30] MEDS: AMLODIPINE 5 MG TABLET PO SCH (09:39)
[2017-07-30] MEDS: APIXABAN 5 MG TABLET PO SCH (09:39)
[2017-07-30] MEDS: CLOPIDOGREL 75 MG TABLET PO SCH (09:39)
[2017-07-30] MEDS: ATENOLOL 25 MG TABLET PO SCH (09:39)
[2017-07-30] MEDS: SENNA + DOCUSATE TABLET PO SCH (09:40)
[2017-07-30] MEDS: CYANOCOBALAMIN (B-12) 500mcg TABLET PO SCH (09:40)
[2017-07-30] MEDS: POLYETHYL GLYCOL 3350 17gm PACKET PO SCH (09:40)
[2017-07-30] MEDS: MEMANTINE 5 MG TABLET PO SCH (09:40)
[2017-07-30] MEDS: TAMSULOSIN 0.4 MG CAPSULE PO SCH (09:40)
--- NOTE | 2017-07-30 14:59 | Neuropsych Progress Note ---
[facility] Subjective Date: 07/30/17 - Sujective/Severity of Illness Medications: Acetaminophen (Tylenol) 650 mg PO Q5H PRN PRN Reason: Discomfort Last Admin: 07/27/17 20:02 Dose: 650 mg Albuterol/Ipratropium (Duoneb) 3 ml AEROSOL RTQID PRN Amlodipine Besylate (Norvasc) 5 mg PO DAILY [facility] Last Admin: 07/30/17 09:39 Dose: 5 mg Apixaban (Eliquis) 5 mg PO DAILY [facility] Last Admin: 07/30/17 09:39 Dose: 5 mg Atenolol (Tenormin) 25 mg PO DAILY [facility] Last Admin: 07/30/17 09:39 Dose: 25 mg Carbidopa/Levodopa (Sinemet) 0.5 tab PO 08,13 [facility] Last Admin: 07/30/17 12:59 Dose: 0.5 tab Clopidogrel Bisulfate (Plavix) 75 mg PO DAILY [facility] Last Admin: 07/30/17 09:39 Dose: 75 mg Cyanocobalamin (Vit. B-12) 1,000 mcg PO DAILY [facility] Last Admin: 07/30/17 09:40 Dose: 1,000 mcg Guaifenesin (Robitussin Liq) 400 mg PO Q6H PRN PRN Reason: Cough /Congestion Last Admin: 07/27/17 14:18 Dose: 400 mg Hydrocortisone (Cortizone-10 Cream) 1 applic TOP QID PRN Lorazepam (Ativan) 0.5 mg PO Q6H PRN PRN Reason: Extreme agitation Last Admin: 07/27/17 21:57 Dose: 0.5 mg Lorazepam (Ativan Inj) 0.5 mg IM Q6H PRN PRN Reason: Extreme agitation Last Admin: 07/14/17 04:04 Dose: 0.5 mg Lorazepam (Ativan Intensol) 0.5 mg SL Q2H PRN Last Admin: 07/28/17 22:37 Dose: 0.5 mg Magnesium Hydroxide (Mom) 30 ml PO DAILY PRN PRN Reason: Constipation Melatonin (Melatonin) 3 mg PO HS [facility] Last Admin: 07/29/17 21:54 Dose: Not Given Memantine (Namenda) 5 mg PO DAILY [facility] Last Admin: 07/30/17 09:40 Dose: 5 mg Mirtazapine (Remeron) 7.5 mg PO HS [facility] Last Admin: 07/29/17 21:54 Dose: Not Given Olanzapine (Zyprexa Zydis) 2.5 mg PO Q6HR PRN PRN Reason: Extreme agitation Last Admin: 07/28/17 19:54 Dose: 2.5 mg Polyethylene Glycol (Miralax) 17 gm PO DAILY [facility] Last Admin: 07/30/17 09:40 Dose: 17 gm Quetiapine Fumarate (Seroquel) 12.5 mg PO 16,21 [facility] Last Admin: 07/29/17 21:54 Dose: Not Given Senna/Docusate Sodium (Senna Plus Tablet) 1 tab PO DAILY [facility] Last Admin: 07/30/17 09:40 Dose: 1 tab Senna/Docusate Sodium (Senna Plus Tablet) 1 tab PO BID PRN PRN Reason: Constipation Last Admin: 07/20/17 13:32 Dose: 1 tab Tamsulosin HCl (Flomax) 0.4 mg PO DAILY [facility] Last Admin: 07/30/17 09:40 Dose: 0.4 mg Subjective: Patient seen and chart reviewed. Case discussed with treatment team. On interview, patient is pleasant though confused and oriented to self only. He reports his mood is "good" and denies any physical complaints though staff feel he is weaker than upon admission. Has slight tremor only and rigidity unchanged from admission despite change in Parkinson's medication. Patient denies any SI, HI or AVH. Patient denies any adverse side effects related to psychotropic medications. Nursing staff report patient slept only ~1.5 hours overnight and was restless at times, again observed picking things out of the air. PRNs reportedly minimally effective. Patient has been adherent with medications. There is some question as to whether Tamiflu could have contributed to delirium symptoms - has now been discontinued; will monitor and attempt to target sleep though patient is quite manageable otherwise. Start Time: 12:40 Stop Time: 13:00 Mental Status Exam Vitals: Last Vital Signs Temp 98.1 F 07/30/17 08:00 Pulse 79 07/30/17 08:00 Resp 18 07/30/17 08:00 BP 157/96 H 07/30/17 08:00 Pulse Ox 98 07/30/17 08:00 Height: 1.65 m Weight: 60.3 kg - Mental Status Exam Muscle Strength/Tone: Rigid (not worsened since admission) Dressing: Casual Grooming: Fair Attitude: Cooperative Motor Activity: Retardation, Tremors Eye Contact: Fair Speech: Slowed Volume: Soft Rhythm: Appropriate Rhythm Orientation: Disoriented to time, Disoriented to situation, Oriented to person Mood: Euthymic Affect: Relaxed (during interview) Rate of Thoughts: Delayed Thought Organization: [place] Associations: Illogical (at times) Abstract Reasoning: Poor abstract reasoning Thought Content: Normal Perception/Psychotic: Psychotic Current Hallucinations: Visual (reported o/n by staff) Language: Naming Impaired Memory: Poor-immediate, Poor-recent Suicidal Ideation: Denies Homicidal Ideation: Denies Insight: Poor Judgement: Poor Impulse Control: Other (Limited) - Laboratory Result Diagrams: 07/29/17 10:44 07/29/17 10:44 Assessment and Plan (1) Major neurocognitive disorder Problem details: modeate, with behavioral disturbance Parkinson's dementia suspected Current visit: Yes Status: Acute (2) Parkinsons disease Current visit: Yes Status: Acute (3) Atrial fibrillation Current visit: Yes Status: Acute (4) Hypertension Current visit: Yes Status: Acute (5) Coronary artery disease Current visit: Yes Status: Acute Monitor symptoms now that Tamiflu has been discontinued; consider other options to target sleep. Hospital Course Summary Disclaimer: The visit summary below is not to be considered part of the above Progress Note. Hospital Course: Plan - 07/13/17 (Admission) Agree with admission to [facility] for further psychiatric evaluation and treatment. Hospitalist service consulted for medical management. Provide safe and supportive environment. Monitor closely as patient is a high fall risk. CBC and CMP in ED revealed mild macrocytic anemia (Hgb 12.7). Unknown if anemia is acute or chronic. Will asses folate and B12 levels. TSH pending. Will monitor labs periodically throughout admission. Blood pressure elevated on admission. Will continue home medications for a-fib and hypertension. Conflicting atenolol dosages noted with patient's home medication list and verified list from ED. Pharmacy contacted and verified atenolol 25mg daily is correct dose. Will continue home medications. CT head in ED revealed no acute intracranial abnormalities or hemorrhage. Continue chronic anticoagulation with Eliquis. Upon discharge, patient's care will be returned to his PCP, Dr. Carorll. Plan - 07/14/17 Patient remains irritable, unstable mood. Hypersexual with staff. Some of his initial labs are pending. Mild anemia- monitor. He is high risk for falls, and has a hx of SDH. Would consider changing anticoagulation to ASA given bleeding risk. Continue supportive care. 07/16/17 Psych: Decrease Sinemet to 1mg PO TID as it could be contributing to anxiety, agitation, paranoia. Monitor response in regards to mood/affect but also movement. If patient receives PRN Ativan, monitor to ensure there is no paradoxical response as he did not sleep well after PRN last night. Plan - 07/17/17 JW continues to be anxious with agitation and restlessness - mood is unstable. <3 hours of sleep last night and received PRN Ativan. Continue psychiatric care per Dr. Louis and team. Provide safe and supportive environment. Initial labs revealed mild anemia with Hgb 12.7. B12 low at 185. B12 IM initiated on 07/16/17 to be completed on 07/23 at which time oral B12 supplementation will be initiated. Folate stable. Monitor anemia periodically. No signs of bleeding. He is high risk for falls, and has a history of SDH. Continues on Plavix and Eliquis. Will recheck labs on 07/22 to monitor blood counts, electrolytes and renal function. Blood pressure variable. Continue to monitor closely. 07/18/17 Psych: Continue current care, attempting to find best balance for patient between treating Parkinson's and minimizing psychosis. Will revisit options after discharge with family after next staffing. 07/19/17 Psych: Again, decreased Sinemet to 12.5mg PO TID - will monitor mood/ behavior and function d/t movement disorder in attempt to find best balance/ timing of Parkinson's meds. 07/20/2017 Pt doing well. Tolerating decrease in Sinemet. Will continue to monitor for psychosis and increase in Parkinsons Symptoms 07/21/2017 Pt a little clearer today. Still has some paranoia at times but appears less bothered by it 07/22/17 CBC and BMP were rechecked today and were stable, hemoglobin was 13.6. Continue vit b12 Occ elevations in bp otherwise medically stable 07/22/17 Psych: Made the following med changes today: Sinemet to 12.5mg PO BID at 0800 and 1300, increase Seroquel to 12.5mg PO BID at 1600 and 2100. Monitor movement vs. anxiety/paranoia in the evenings. Will discuss discharge arrangements (placement vs. home with ) again with family. 07/23/17 Psych: Will discuss medication to target sleep/anxiety with family/DPOA - thinking about mirtazapine vs. SSRI. 07/24/17 Hospitalist consult: Due to low grade temperature and cough with recent exposure to influenza, patient underwent respiratory testing and revealed positive for Influenza A on 07/23/17. Tamiflu was initiated 07/23/17 to be continued through 07/28/17. CBC and BMP this morning revealed new, mild anemia with hemoglobin at 13.1 and otherwise unremarkable. WBC stable at 7.8. CXR today revealed no acute cardiopulmonary disease or changes. Continue respiratory precautions and isolation given high risk of transmission to other patients. Continue Vitamin B12 supplementation for deficiency. Blood pressure improved with initiation of Norvasc 5mg daily. Continue to monitor closely for hypotension. Continue to encourage good oral intake in light of flu diagnosis and monitor respiratory function closely. 07/25/17 Psych: Continue current care as patient recovers from influenza; monitor for increase in symptoms and may adjust psych meds if needed - doing well so far given medical concerns. 07/26/17 Psych: Start mirtazapine 7.5mg PO q HS. I believe worsening of symptoms is more related to influenza than underlying Parkinson's dementia/psychosis. Will continue to monitor as he recovers from viral illness. Also believe patient will fare better when allowed out of isolation/precautions. 07/28/17 Psych: PT continues to improve. Continue current care. 07/29/17 Psych: Suspect continued delirium given constellation of symptoms and recent fever/cough - will request CBC, CMP, repeat CXR and UA today before further changes made to psychotropic meds. 07/29/17 Hospitalist: Repeat CBC, BMP, CXR and urinalysis ordered by psychiatrist were essentially negative. No new physical explanation for his delirium. Potentially could be residual from his influenza illness versus side effect Tamiflu. As he was on prophylactic dosing prior to starting his treatment dose, will go ahead and discontinue Tamiflu now in the event this could be contributing to his delirium. Hydrocortisone cream for his rash 07/30/17 Psych: Monitor symptoms now that Tamiflu has been discontinued; consider other options to target sleep.
[2017-07-30] MEDS: QUETIAPINE 25 MG TABLET PO SCH (16:17)
[2017-07-30] MEDS: MELATONIN 1 MG TABLET PO SCH (20:00)
[2017-07-30] MEDS: MIRTAZAPINE 15 MG TABLET PO SCH (20:00)
[2017-07-31] MEDS: ATENOLOL 25 MG TABLET PO SCH (09:19)
[2017-07-31] MEDS: AMLODIPINE 5 MG TABLET PO SCH (09:19)
[2017-07-31] MEDS: CYANOCOBALAMIN (B-12) 500mcg TABLET PO SCH (09:19)
[2017-07-31] MEDS: APIXABAN 5 MG TABLET PO SCH (09:19)
[2017-07-31] MEDS: CLOPIDOGREL 75 MG TABLET PO SCH (09:19)
[2017-07-31] MEDS: MEMANTINE 5 MG TABLET PO SCH (09:20)
[2017-07-31] MEDS: SENNA + DOCUSATE TABLET PO SCH (09:20)
[2017-07-31] MEDS: POLYETHYL GLYCOL 3350 17gm PACKET PO SCH (09:20)
[2017-07-31] MEDS: TAMSULOSIN 0.4 MG CAPSULE PO SCH (09:20)
[2017-07-31] MEDS: QUETIAPINE 25 MG TABLET PO SCH (17:31)
--- NOTE | 2017-07-31 19:35 | Neuropsych Progress Note ---
[facility] Subjective Date: 08/01/17 - Sujective/Severity of Illness Medications: Acetaminophen (Tylenol) 650 mg PO Q5H PRN PRN Reason: Discomfort Last Admin: 07/27/17 20:02 Dose: 650 mg Albuterol/Ipratropium (Duoneb) 3 ml AEROSOL RTQID PRN Amlodipine Besylate (Norvasc) 5 mg PO DAILY [facility] Last Admin: 07/31/17 09:19 Dose: 5 mg Apixaban (Eliquis) 5 mg PO DAILY [facility] Last Admin: 07/31/17 09:19 Dose: 5 mg Atenolol (Tenormin) 25 mg PO DAILY [facility] Last Admin: 07/31/17 09:19 Dose: 25 mg Carbidopa/Levodopa (Sinemet) 0.5 tab PO 08,13 [facility] Last Admin: 07/31/17 14:15 Dose: 0.5 tab Clopidogrel Bisulfate (Plavix) 75 mg PO DAILY [facility] Last Admin: 07/31/17 09:19 Dose: 75 mg Cyanocobalamin (Vit. B-12) 1,000 mcg PO DAILY [facility] Last Admin: 07/31/17 09:19 Dose: 1,000 mcg Guaifenesin (Robitussin Liq) 400 mg PO Q6H PRN PRN Reason: Cough /Congestion Last Admin: 07/27/17 14:18 Dose: 400 mg Hydrocortisone (Cortizone-10 Cream) 1 applic TOP QID PRN Lorazepam (Ativan) 0.5 mg PO Q6H PRN PRN Reason: Extreme agitation Last Admin: 07/27/17 21:57 Dose: 0.5 mg Lorazepam (Ativan Inj) 0.5 mg IM Q6H PRN PRN Reason: Extreme agitation Last Admin: 07/14/17 04:04 Dose: 0.5 mg Lorazepam (Ativan Intensol) 0.5 mg SL Q2H PRN Last Admin: 07/28/17 22:37 Dose: 0.5 mg Magnesium Hydroxide (Mom) 30 ml PO DAILY PRN PRN Reason: Constipation Melatonin (Melatonin) 3 mg PO HS [facility] Last Admin: 07/30/17 20:00 Dose: 3 mg Memantine (Namenda) 5 mg PO DAILY [facility] Last Admin: 07/31/17 09:20 Dose: 5 mg Mirtazapine (Remeron) 15 mg PO HS [facility] Last Admin: 07/30/17 20:00 Dose: 15 mg Olanzapine (Zyprexa Zydis) 2.5 mg PO Q6HR PRN PRN Reason: Extreme agitation Last Admin: 07/28/17 19:54 Dose: 2.5 mg Polyethylene Glycol (Miralax) 17 gm PO DAILY [facility] Last Admin: 07/31/17 09:20 Dose: 17 gm Quetiapine Fumarate (Seroquel) 12.5 mg PO 16 [facility] Last Admin: 07/31/17 17:31 Dose: 12.5 mg Senna/Docusate Sodium (Senna Plus Tablet) 1 tab PO DAILY [facility] Last Admin: 07/31/17 09:20 Dose: 1 tab Senna/Docusate Sodium (Senna Plus Tablet) 1 tab PO BID PRN PRN Reason: Constipation Last Admin: 07/20/17 13:32 Dose: 1 tab Tamsulosin HCl (Flomax) 0.4 mg PO DAILY [facility] Last Admin: 07/31/17 09:20 Dose: 0.4 mg Subjective: Patient seen and chart reviewed. Case discussed with treatment team. On interview, patient is pleasant though confused and oriented to self only. He reports his mood is "good" and denies any physical complaints though staff feel he is weaker than upon admission. Has slight tremor only and rigidity unchanged from admission despite change in Parkinson's medication. Patient denies any SI, HI or AVH. Patient denies any adverse side effects related to psychotropic medications. Nursing staff report patient slept 6.25 hours overnight. Patient has been adherent with medications. No psychotropic PRN medications required in the past 24 hours. Start Time: 15:00 Stop Time: 15:20 Mental Status Exam Vitals: Last Vital Signs Temp 97.6 F 07/31/17 15:44 Pulse 112 H 07/31/17 15:44 Resp 14 07/31/17 15:44 BP 143/73 H 07/31/17 15:44 Pulse Ox 94 07/31/17 15:44 Height: 1.65 m Weight: 60.3 kg - Mental Status Exam Muscle Strength/Tone: Rigid (not worsened since admission) Dressing: Casual Grooming: Fair Attitude: Cooperative Motor Activity: Retardation, Tremors Eye Contact: Fair Speech: Slowed Volume: Soft Rhythm: Appropriate Rhythm Orientation: Disoriented to time, Disoriented to situation, Oriented to person Mood: Euthymic Affect: Relaxed Rate of Thoughts: Delayed Thought Organization: [place] Associations: Illogical (at times) Abstract Reasoning: Poor abstract reasoning Thought Content: Normal Perception/Psychotic: Hx psychosis, not current Language: Naming Impaired Memory: Poor-immediate, Poor-recent Suicidal Ideation: Denies Homicidal Ideation: Denies Insight: Impaired Judgement: Impaired Impulse Control: Fair - Laboratory Result Diagrams: 07/29/17 10:44 07/29/17 10:44 Assessment and Plan (1) Major neurocognitive disorder Problem details: moderate, due to Parkinson's, with behavioral disturbance Medication-induced delirium (resolved) Current visit: Yes Status: Acute (2) Parkinsons disease Current visit: Yes Status: Acute (3) Atrial fibrillation Current visit: Yes Status: Acute (4) Hypertension Current visit: Yes Status: Acute (5) Coronary artery disease Current visit: Yes Status: Acute Increase mirtazapine to 15mg PO q HS. Discontinue HS Seroquel in the event that it could be contributing to restlessness; SNU would be beneficial for deconditioning during time of recent influenza illness. Hospital Course Summary Disclaimer: The visit summary below is not to be considered part of the above Progress Note. Hospital Course: Plan - 07/13/17 (Admission) Agree with admission to [facility] for further psychiatric evaluation and treatment. Hospitalist service consulted for medical management. Provide safe and supportive environment. Monitor closely as patient is a high fall risk. CBC and CMP in ED revealed mild macrocytic anemia (Hgb 12.7). Unknown if anemia is acute or chronic. Will asses folate and B12 levels. TSH pending. Will monitor labs periodically throughout admission. Blood pressure elevated on admission. Will continue home medications for a-fib and hypertension. Conflicting atenolol dosages noted with patient's home medication list and verified list from ED. Pharmacy contacted and verified atenolol 25mg daily is correct dose. Will continue home medications. CT head in ED revealed no acute intracranial abnormalities or hemorrhage. Continue chronic anticoagulation with Eliquis. Upon discharge, patient's care will be returned to his PCP, Dr. Carroll. Plan - 07/14/17 Patient remains irritable, unstable mood. Hypersexual with staff. Some of his initial labs are pending. Mild anemia- monitor. He is high risk for falls, and has a hx of SDH. Would consider changing anticoagulation to ASA given bleeding risk. Continue supportive care. 07/16/17 Psych: Decrease Sinemet to 1mg PO TID as it could be contributing to anxiety, agitation, paranoia. Monitor response in regards to mood/affect but also movement. If patient receives PRN Ativan, monitor to ensure there is no paradoxical response as he did not sleep well after PRN last night. Plan - 07/17/17 JW continues to be anxious with agitation and restlessness - mood is unstable. <3 hours of sleep last night and received PRN Ativan. Continue psychiatric care per Dr. Louis and team. Provide safe and supportive environment. Initial labs revealed mild anemia with Hgb 12.7. B12 low at 185. B12 IM initiated on 07/16/17 to be completed on 07/23 at which time oral B12 supplementation will be initiated. Folate stable. Monitor anemia periodically. No signs of bleeding. He is high risk for falls, and has a history of SDH. Continues on Plavix and Eliquis. Will recheck labs on 07/22 to monitor blood counts, electrolytes and renal function. Blood pressure variable. Continue to monitor closely. 07/18/17 Psych: Continue current care, attempting to find best balance for patient between treating Parkinson's and minimizing psychosis. Will revisit options after discharge with family after next staffing. 07/19/17 Psych: Again, decreased Sinemet to 12.5mg PO TID - will monitor mood/ behavior and function d/t movement disorder in attempt to find best balance/ timing of Parkinson's meds. 07/20/2017 Pt doing well. Tolerating decrease in Sinemet. Will continue to monitor for psychosis and increase in Parkinsons Symptoms 07/21/2017 Pt a little clearer today. Still has some paranoia at times but appears less bothered by it 07/22/17 CBC and BMP were rechecked today and were stable, hemoglobin was 13.6. Continue vit b12 Occ elevations in bp otherwise medically stable 07/22/17 Psych: Made the following med changes today: Sinemet to 12.5mg PO BID at 0800 and 1300, increase Seroquel to 12.5mg PO BID at 1600 and 2100. Monitor movement vs. anxiety/paranoia in the evenings. Will discuss discharge arrangements (placement vs. home with ) again with family. 07/23/17 Psych: Will discuss medication to target sleep/anxiety with family/DPOA - thinking about mirtazapine vs. SSRI. 07/24/17 Hospitalist consult: Due to low grade temperature and cough with recent exposure to influenza, patient underwent respiratory testing and revealed positive for Influenza A on 07/23/17. Tamiflu was initiated 07/23/17 to be continued through 07/28/17. CBC and BMP this morning revealed new, mild anemia with hemoglobin at 13.1 and otherwise unremarkable. WBC stable at 7.8. CXR today revealed no acute cardiopulmonary disease or changes. Continue respiratory precautions and isolation given high risk of transmission to other patients. Continue Vitamin B12 supplementation for deficiency. Blood pressure improved with initiation of Norvasc 5mg daily. Continue to monitor closely for hypotension. Continue to encourage good oral intake in light of flu diagnosis and monitor respiratory function closely. 07/25/17 Psych: Continue current care as patient recovers from influenza; monitor for increase in symptoms and may adjust psych meds if needed - doing well so far given medical concerns. 07/26/17 Psych: Start mirtazapine 7.5mg PO q HS. I believe worsening of symptoms is more related to influenza than underlying Parkinson's dementia/psychosis. Will continue to monitor as he recovers from viral illness. Also believe patient will fare better when allowed out of isolation/precautions. 07/28/17 Psych: PT continues to improve. Continue current care. 07/29/17 Psych: Suspect continued delirium given constellation of symptoms and recent fever/cough - will request CBC, CMP, repeat CXR and UA today before further changes made to psychotropic meds. 07/29/17 Hospitalist: Repeat CBC, BMP, CXR and urinalysis ordered by psychiatrist were essentially negative. No new physical explanation for his delirium. Potentially could be residual from his influenza illness versus side effect Tamiflu. As he was on prophylactic dosing prior to starting his treatment dose, will go ahead and discontinue Tamiflu now in the event this could be contributing to his delirium. Hydrocortisone cream for his rash 07/30/17 Psych: Monitor symptoms now that Tamiflu has been discontinued; consider other options to target sleep. 07/31/17 Psych: Increase mirtazapine to 15mg PO q HS. Discontinue HS Seroquel in the event that it could be contributing to restlessness; SNU would be beneficial for deconditioning during time of recent influenza illness.
[2017-07-31] MEDS: MELATONIN 1 MG TABLET PO SCH (20:00)
[2017-07-31] MEDS: MIRTAZAPINE 15 MG TABLET PO SCH (20:00)
[2017-08-01] MEDS: CYANOCOBALAMIN (B-12) 500mcg TABLET PO SCH (09:26)
[2017-08-01] MEDS: AMLODIPINE 5 MG TABLET PO SCH (09:26)
[2017-08-01] MEDS: POLYETHYL GLYCOL 3350 17gm PACKET PO SCH (09:26)
[2017-08-01] MEDS: CLOPIDOGREL 75 MG TABLET PO SCH (09:26)
[2017-08-01] MEDS: APIXABAN 5 MG TABLET PO SCH (09:26)
[2017-08-01] MEDS: ATENOLOL 25 MG TABLET PO SCH (09:26)
[2017-08-01] MEDS: TAMSULOSIN 0.4 MG CAPSULE PO SCH (09:27)
[2017-08-01] MEDS: SENNA + DOCUSATE TABLET PO SCH (09:27)
[2017-08-01] MEDS: MEMANTINE 5 MG TABLET PO SCH (09:27)
--- NOTE | 2017-08-01 15:28 | Progress Note ---
- Date 08/01/17 Subjective: Patient seen in at the table coloring with other patients. He says he is "wonderful." No complaints of pain. Reports cough and SOA are resolved. "Haven 't had that for weeks." Says his appetite is good. Staff have no concerns. Objective Vital signs: Temperature 98.1 F 08/01/17 08:00 Pulse Rate 73 08/01/17 08:00 Respiratory Rate 18 08/01/17 08:00 Blood Pressure 165/84 H 08/01/17 08:00 Pulse Oximetry 96 08/01/17 08:00 Height/Weight/BMI: Height 1.65 m Weight 60.3 kg Body Mass Index 22.2 - Constitutional Present: no acute distress, well developed, thin - Routine HEENT Exam Head: Present: normocephalic, atraumatic - Routine Respiratory Exam Present: CTA bilaterally, crackles (RLL). Absent: wheezes - Routine Cardiovascular Exam Present: RRR, no murmur, irregularly irregular - Routine Abdominal Exam Present: soft, non distended, non tender - Routine Extremities Exam Present: no edema, normal capillary refill - Routine Skin Exam Present: dry, warm - Routine Neurological Exam Present: alert. Absent: normal speech (rapid speech - partially intelligible) - Routine Lymphatic Exam Lymphatic: Absent: adenopathy - Routine Psychiatric Exam Present: normal affect, cooperative Results - Labs CBC & Chem 7: 07/29/17 10:44 07/29/17 10:44 Assessment and Plan (1) Major neurocognitive disorder Problem details: modeate, with behavioral disturbance Parkinson's dementia suspected Current visit: Yes Status: Acute Assessment and Plan: Assessment Dementia with behavioral disorder. Vitamin B12 deficiency Parkinson's disease. Chronic a-fib. Chronic anticoagulation with Eliquis. BPH. Hypertension. CAD. Influenza A - NEW DIAGNOSIS 07/23/17. Mild anemia - NEW DIAGNOSIS 07/24/17. Rash (back) - new diagnosis 07/29/17 Plan Patient is doing well from a medical standpoint. No changes. Chart, nurses notes, psych notes, labs and vitals reviewed. - Physician Narrative Narrative: Date: 08/01/17 Time: 1524 Hospital Course Summary Disclaimer: The visit summary below is not to be considered part of the above Progress Note. Hospital Course: Plan - 07/13/17 (Admission) Agree with admission to [facility] for further psychiatric evaluation and treatment. Hospitalist service consulted for medical management. Provide safe and supportive environment. Monitor closely as patient is a high fall risk. CBC and CMP in ED revealed mild macrocytic anemia (Hgb 12.7). Unknown if anemia is acute or chronic. Will asses folate and B12 levels. TSH pending. Will monitor labs periodically throughout admission. Blood pressure elevated on admission. Will continue home medications for a-fib and hypertension. Conflicting atenolol dosages noted with patient's home medication list and verified list from ED. Pharmacy contacted and verified atenolol 25mg daily is correct dose. Will continue home medications. CT head in ED revealed no acute intracranial abnormalities or hemorrhage. Continue chronic anticoagulation with Eliquis. Upon discharge, patient's care will be returned to his PCP, Dr. Carroll. Plan - 07/14/17 Patient remains irritable, unstable mood. Hypersexual with staff. Some of his initial labs are pending. Mild anemia- monitor. He is high risk for falls, and has a hx of SDH. Would consider changing anticoagulation to ASA given bleeding risk. Continue supportive care. 07/16/17 Psych: Decrease Sinemet to 1mg PO TID as it could be contributing to anxiety, agitation, paranoia. Monitor response in regards to mood/affect but also movement. If patient receives PRN Ativan, monitor to ensure there is no paradoxical response as he did not sleep well after PRN last night. Plan - 07/17/17 JW continues to be anxious with agitation and restlessness - mood is unstable. <3 hours of sleep last night and received PRN Ativan. Continue psychiatric care per Dr. Louis and team. Provide safe and supportive environment. Initial labs revealed mild anemia with Hgb 12.7. B12 low at 185. B12 IM initiated on 07/16/17 to be completed on 07/23 at which time oral B12 supplementation will be initiated. Folate stable. Monitor anemia periodically. No signs of bleeding. He is high risk for falls, and has a history of SDH. Continues on Plavix and Eliquis. Will recheck labs on 07/22 to monitor blood counts, electrolytes and renal function. Blood pressure variable. Continue to monitor closely. 07/18/17 Psych: Continue current care, attempting to find best balance for patient between treating Parkinson's and minimizing psychosis. Will revisit options after discharge with family after next staffing. 07/19/17 Psych: Again, decreased Sinemet to 12.5mg PO TID - will monitor mood/ behavior and function d/t movement disorder in attempt to find best balance/ timing of Parkinson's meds. 07/20/2017 Pt doing well. Tolerating decrease in Sinemet. Will continue to monitor for psychosis and increase in Parkinsons Symptoms 07/21/2017 Pt a little clearer today. Still has some paranoia at times but appears less bothered by it 07/22/17 CBC and BMP were rechecked today and were stable, hemoglobin was 13.6. Continue vit b12 Occ elevations in bp otherwise medically stable 07/22/17 Psych: Made the following med changes today: Sinemet to 12.5mg PO BID at 0800 and 1300, increase Seroquel to 12.5mg PO BID at 1600 and 2100. Monitor movement vs. anxiety/paranoia in the evenings. Will discuss discharge arrangements (placement vs. home with ) again with family. 07/23/17 Psych: Will discuss medication to target sleep/anxiety with family/DPOA - thinking about mirtazapine vs. SSRI. 07/24/17 Hospitalist consult: Due to low grade temperature and cough with recent exposure to influenza, patient underwent respiratory testing and revealed positive for Influenza A on 07/23/17. Tamiflu was initiated 07/23/17 to be continued through 07/28/17. CBC and BMP this morning revealed new, mild anemia with hemoglobin at 13.1 and otherwise unremarkable. WBC stable at 7.8. CXR today revealed no acute cardiopulmonary disease or changes. Continue respiratory precautions and isolation given high risk of transmission to other patients. Continue Vitamin B12 supplementation for deficiency. Blood pressure improved with initiation of Norvasc 5mg daily. Continue to monitor closely for hypotension. Continue to encourage good oral intake in light of flu diagnosis and monitor respiratory function closely. 07/25/17 Psych: Continue current care as patient recovers from influenza; monitor for increase in symptoms and may adjust psych meds if needed - doing well so far given medical concerns. 07/26/17 Psych: Start mirtazapine 7.5mg PO q HS. I believe worsening of symptoms is more related to influenza than underlying Parkinson's dementia/psychosis. Will continue to monitor as he recovers from viral illness. Also believe patient will fare better when allowed out of isolation/precautions. 07/28/17 Psych: PT continues to improve. Continue current care. 07/29/17 Psych: Suspect continued delirium given constellation of symptoms and recent fever/cough - will request CBC, CMP, repeat CXR and UA today before further changes made to psychotropic meds. 07/29/17 Hospitalist: Repeat CBC, BMP, CXR and urinalysis ordered by psychiatrist were essentially negative. No new physical explanation for his delirium. Potentially could be residual from his influenza illness versus side effect Tamiflu. As he was on prophylactic dosing prior to starting his treatment dose, will go ahead and discontinue Tamiflu now in the event this could be contributing to his delirium. Hydrocortisone cream for his rash 07/30/17 Psych: Monitor symptoms now that Tamiflu has been discontinued; consider other options to target sleep. 08/01/17 hospitalist: Patient is doing well from a medical standpoint. No changes. Chart, nurses notes, psych notes, labs and vitals reviewed.
[2017-08-01] MEDS: QUETIAPINE 25 MG TABLET PO SCH (16:55)
[2017-08-01] MEDS: MELATONIN 1 MG TABLET PO SCH (20:07)
[2017-08-01] MEDS: MIRTAZAPINE 15 MG TABLET PO SCH (20:07)
--- NOTE | 2017-08-01 21:22 | Neuropsych Progress Note ---
[facility] Subjective Date: 08/01/17 - Sujective/Severity of Illness Medications: Acetaminophen (Tylenol) 650 mg PO Q5H PRN PRN Reason: Discomfort Last Admin: 07/27/17 20:02 Dose: 650 mg Albuterol/Ipratropium (Duoneb) 3 ml AEROSOL RTQID PRN Amlodipine Besylate (Norvasc) 5 mg PO DAILY [facility] Last Admin: 08/01/17 09:26 Dose: 5 mg Apixaban (Eliquis) 5 mg PO DAILY [facility] Last Admin: 08/01/17 09:26 Dose: 5 mg Atenolol (Tenormin) 25 mg PO DAILY [facility] Last Admin: 08/01/17 09:26 Dose: 25 mg Carbidopa/Levodopa (Sinemet) 0.5 tab PO [facility] Last Admin: 08/01/17 12:54 Dose: 0.5 tab Clopidogrel Bisulfate (Plavix) 75 mg PO DAILY [facility] Last Admin: 08/01/17 09:26 Dose: 75 mg Cyanocobalamin (Vit. B-12) 1,000 mcg PO DAILY [facility] Last Admin: 08/01/17 09:26 Dose: 1,000 mcg Guaifenesin (Robitussin Liq) 400 mg PO Q6H PRN PRN Reason: Cough /Congestion Last Admin: 07/27/17 14:18 Dose: 400 mg Hydrocortisone (Cortizone-10 Cream) 1 applic TOP QID PRN Lorazepam (Ativan) 0.5 mg PO Q6H PRN PRN Reason: Extreme agitation Last Admin: 07/27/17 21:57 Dose: 0.5 mg Lorazepam (Ativan Inj) 0.5 mg IM Q6H PRN PRN Reason: Extreme agitation Last Admin: 07/14/17 04:04 Dose: 0.5 mg Lorazepam (Ativan Intensol) 0.5 mg SL Q2H PRN Last Admin: 07/28/17 22:37 Dose: 0.5 mg Magnesium Hydroxide (Mom) 30 ml PO DAILY PRN PRN Reason: Constipation Melatonin (Melatonin) 3 mg PO HS [facility] Last Admin: 08/01/17 20:07 Dose: 3 mg Memantine (Namenda) 5 mg PO DAILY [facility] Last Admin: 08/01/17 09:27 Dose: 5 mg Mirtazapine (Remeron) 15 mg PO HS [facility] Last Admin: 08/01/17 20:07 Dose: 15 mg Olanzapine (Zyprexa Zydis) 2.5 mg PO Q6HR PRN PRN Reason: Extreme agitation Last Admin: 07/28/17 19:54 Dose: 2.5 mg Polyethylene Glycol (Miralax) 17 gm PO DAILY [facility] Last Admin: 08/01/17 09:26 Dose: 17 gm Quetiapine Fumarate (Seroquel) 12.5 mg PO 16 [facility] Last Admin: 08/01/17 16:55 Dose: 12.5 mg Senna/Docusate Sodium (Senna Plus Tablet) 1 tab PO DAILY [facility] Last Admin: 08/01/17 09:27 Dose: 1 tab Senna/Docusate Sodium (Senna Plus Tablet) 1 tab PO BID PRN PRN Reason: Constipation Last Admin: 07/20/17 13:32 Dose: 1 tab Tamsulosin HCl (Flomax) 0.4 mg PO DAILY [facility] Last Admin: 08/01/17 09:27 Dose: 0.4 mg Subjective: Patient seen and chart reviewed. Case discussed with treatment team. On interview, patient is pleasant though confused and oriented to self only. He reports his mood is "good" and denies any physical complaints though staff feel he is weaker than upon admission. Has slight tremor only and rigidity unchanged from admission despite change in Parkinson's medication. Patient denies any SI, HI or AVH. Patient denies any adverse side effects related to psychotropic medications. Nursing staff report patient slept 7.25 hours overnight. Patient has been adherent with medications. No psychotropic PRN medications required in the past 24 hours. I spoke with patient's son briefly and then his /DPOA in regards to diagnosis, treatment, prognosis over the phone. Start Time: 16:00 Stop Time: 16:40 Care: >50% of this visit spent in counseling/coordination care. (phone call with family/DPOA as above) Mental Status Exam Vitals: Last Vital Signs Temp 97.8 F 08/01/17 19:45 Pulse 63 08/01/17 19:45 Resp 18 08/01/17 19:45 BP 156/76 H 08/01/17 19:45 Pulse Ox 95 08/01/17 19:45 Height: 1.65 m Weight: 60.3 kg - Mental Status Exam Muscle Strength/Tone: Rigid (not worsened since admission) Dressing: Casual Grooming: Fair Attitude: Cooperative Motor Activity: Retardation, Tremors Eye Contact: Fair Speech: Slowed Volume: Soft Rhythm: Appropriate Rhythm Orientation: Disoriented to time, Disoriented to situation, Oriented to person Mood: Euthymic Affect: Bright, Relaxed Rate of Thoughts: Delayed Thought Organization: [place] Associations: Illogical (at times) Abstract Reasoning: Poor abstract reasoning Thought Content: Normal Perception/Psychotic: Hx psychosis, not current Current Hallucinations: Visual (reported o/n by staff) Language: Naming Impaired Memory: Poor-immediate, Poor-recent Suicidal Ideation: Denies Homicidal Ideation: Denies Insight: Impaired Judgement: Impaired Impulse Control: Fair - Laboratory Result Diagrams: 07/29/17 10:44 07/29/17 10:44 Assessment and Plan (1) Major neurocognitive disorder Problem details: moderate, due to Parkinson's, with behavioral disturbance Medication-induced delirium (resolved) Current visit: Yes Status: Acute (2) Parkinsons disease Current visit: Yes Status: Acute (3) Atrial fibrillation Current visit: Yes Status: Acute (4) Hypertension Current visit: Yes Status: Acute (5) Coronary artery disease Current visit: Yes Status: Acute Continue current care with plan to d/c to SNU tomorrow per family's wishes. Long -term, would like to see Seroquel discontinued but will defer to outpatient treatment as patient is currently stable. Hospital Course Summary Disclaimer: The visit summary below is not to be considered part of the above Progress Note. Hospital Course: Plan - 07/13/17 (Admission) Agree with [facility] for further psychiatric evaluation and treatment. Hospitalist service consulted for medical management. Provide safe and supportive environment. Monitor closely as patient is a high fall risk. CBC and CMP in ED revealed mild macrocytic anemia (Hgb 12.7). Unknown if anemia is acute or chronic. Will asses folate and B12 levels. TSH pending. Will monitor labs periodically throughout admission. Blood pressure elevated on admission. Will continue home medications for a-fib and hypertension. Conflicting atenolol dosages noted with patient's home medication list and verified list from ED. Pharmacy contacted and verified atenolol 25mg daily is correct dose. Will continue home medications. CT head in ED revealed no acute intracranial abnormalities or hemorrhage. Continue chronic anticoagulation with Eliquis. Upon discharge, patient's care will be returned to his PCP, Dr. Carroll. Plan - 07/14/17 Patient remains irritable, unstable mood. Hypersexual with staff. Some of his initial labs are pending. Mild anemia- monitor. He is high risk for falls, and has a hx of SDH. Would consider changing anticoagulation to ASA given bleeding risk. Continue supportive care. 07/16/17 Psych: Decrease Sinemet to 1mg PO TID as it could be contributing to anxiety, agitation, paranoia. Monitor response in regards to mood/affect but also movement. If patient receives PRN Ativan, monitor to ensure there is no paradoxical response as he did not sleep well after PRN last night. Plan - 07/17/17 JW continues to be anxious with agitation and restlessness - mood is unstable. <3 hours of sleep last night and received PRN Ativan. Continue psychiatric care per Dr. Louis and team. Provide safe and supportive environment. Initial labs revealed mild anemia with Hgb 12.7. B12 low at 185. B12 IM initiated on 07/16/17 to be completed on 07/23 at which time oral B12 supplementation will be initiated. Folate stable. Monitor anemia periodically. No signs of bleeding. He is high risk for falls, and has a history of SDH. Continues on Plavix and Eliquis. Will recheck labs on 07/22 to monitor blood counts, electrolytes and renal function. Blood pressure variable. Continue to monitor closely. 07/18/17 Psych: Continue current care, attempting to find best balance for patient between treating Parkinson's and minimizing psychosis. Will revisit options after discharge with family after next staffing. 07/19/17 Psych: Again, decreased Sinemet to 12.5mg PO TID - will monitor mood/ behavior and function d/t movement disorder in attempt to find best balance/ timing of Parkinson's meds. 07/20/2017 Pt doing well. Tolerating decrease in Sinemet. Will continue to monitor for psychosis and increase in Parkinsons Symptoms 07/21/2017 Pt a little clearer today. Still has some paranoia at times but appears less bothered by it 07/22/17 CBC and BMP were rechecked today and were stable, hemoglobin was 13.6. Continue vit b12 Occ elevations in bp otherwise medically stable 07/22/17 Psych: Made the following med changes today: Sinemet to 12.5mg PO BID at 0800 and 1300, increase Seroquel to 12.5mg PO BID at 1600 and 2100. Monitor movement vs. anxiety/paranoia in the evenings. Will discuss discharge arrangements (placement vs. home with ) again with family. 07/23/17 Psych: Will discuss medication to target sleep/anxiety with family/DPOA - thinking about mirtazapine vs. SSRI. 07/24/17 Hospitalist consult: Due to low grade temperature and cough with recent exposure to influenza, patient underwent respiratory testing and revealed positive for Influenza A on 07/23/17. Tamiflu was initiated 07/23/17 to be continued through 07/28/17. CBC and BMP this morning revealed new, mild anemia with hemoglobin at 13.1 and otherwise unremarkable. WBC stable at 7.8. CXR today revealed no acute cardiopulmonary disease or changes. Continue respiratory precautions and isolation given high risk of transmission to other patients. Continue Vitamin B12 supplementation for deficiency. Blood pressure improved with initiation of Norvasc 5mg daily. Continue to monitor closely for hypotension. Continue to encourage good oral intake in light of flu diagnosis and monitor respiratory function closely. 07/25/17 Psych: Continue current care as patient recovers from influenza; monitor for increase in symptoms and may adjust psych meds if needed - doing well so far given medical concerns. 07/26/17 Psych: Start mirtazapine 7.5mg PO q HS. I believe worsening of symptoms is more related to influenza than underlying Parkinson's dementia/psychosis. Will continue to monitor as he recovers from viral illness. Also believe patient will fare better when allowed out of isolation/precautions. 07/28/17 Psych: PT continues to improve. Continue current care. 07/29/17 Psych: Suspect continued delirium given constellation of symptoms and recent fever/cough - will request CBC, CMP, repeat CXR and UA today before further changes made to psychotropic meds. 07/29/17 Hospitalist: Repeat CBC, BMP, CXR and urinalysis ordered by psychiatrist were essentially negative. No new physical explanation for his delirium. Potentially could be residual from his influenza illness versus side effect Tamiflu. As he was on prophylactic dosing prior to starting his treatment dose, will go ahead and discontinue Tamiflu now in the event this could be contributing to his delirium. Hydrocortisone cream for his rash 07/30/17 Psych: Monitor symptoms now that Tamiflu has been discontinued; consider other options to target sleep. 07/31/17 Psych: Increase mirtazapine to 15mg PO q HS. Discontinue HS Seroquel in the event that it could be contributing to restlessness; SNU would be beneficial for deconditioning during time of recent influenza illness. 08/01/17 Psych: Continue current care with plan to d/c to SNU tomorrow per family' s wishes. Long-term, would like to see Seroquel discontinued but will defer to outpatient treatment as patient is currently stable.
[2017-08-02] MEDS: ATENOLOL 25 MG TABLET PO SCH (08:02)
[2017-08-02] MEDS: AMLODIPINE 5 MG TABLET PO SCH (08:02)
[2017-08-02] MEDS: CLOPIDOGREL 75 MG TABLET PO SCH (08:02)
[2017-08-02] MEDS: MEMANTINE 5 MG TABLET PO SCH (08:02)
[2017-08-02] MEDS: CYANOCOBALAMIN (B-12) 500mcg TABLET PO SCH (08:02)
[2017-08-02] MEDS: TAMSULOSIN 0.4 MG CAPSULE PO SCH (08:02)
[2017-08-02] MEDS: SENNA + DOCUSATE TABLET PO SCH (08:02)
[2017-08-02] MEDS: POLYETHYL GLYCOL 3350 17gm PACKET PO SCH (08:03)
[2017-08-02] MEDS: APIXABAN 5 MG TABLET PO SCH (08:03)
[2017-08-02 08:04] VITALS: BP 154/68; PULSE 67; RESP 16; TEMP 98.2; O2SAT 96
--- NOTE | 2017-08-02 08:55 | Extended Care Facility Orders ---
Admission Orders Admit to:: [facility] Allergies/Adverse Reactions: Allergies No Known Allergies Allergy (Verified 07/13/17 11:26) Admitting Diagnosis: Agitation Admitting Physician: Hector Ferrer MD Attending Physician: Hector Ferrer MD Code Status: Do Not Resuscitate Anticiapted Length of Stay: 30 days or less Rehab Potential: good Rehab Prognosis: good May use Facility Protocol or Standing Orders: Yes May have flu vaccine: Yes Evaluations/Treatment: PT, OT, Psychiatric [facility] Certification: I certify that SNF services are required to be given on an Inpatient basis because of the patients need for retirement care on a continuing basis for the condition(s) for which he/she received inpatient hospital services prior to his/her transfer to the SNF. SNF inpatient care is necessary for the following reasons Indication for [facility]: Other (PT/OT) - Additional Information In Event of Arrest: Do Not Start CPR Referrals: Angel Escobar MD [Other] (Dr. Angel Escobar will see patient for Psychiatric needs. . [facility] [address] [place] [id number]) Kristian Carroll [Family Provider] - (Dr. Hung Carroll on 08/06/17 at 10:00 am for Hosp. follow-up. Clinic[address] [place] [address])
[2017-08-02] MEDS: LORazepam 0.5 MG TABLET PO PRN (12:48)
== END 2017-08-02 15:55 | DRG 884 ==
LOC: ED 10:53 → GEN 12:59
PROVIDERS: ADMIT Psychiatry & Neurology Psychiatry; ATTEND Psychiatry & Neurology Psychiatry